=== PATIENT | female | born 1935 | race Caucasian/White ===

== ENCOUNTER 2016-03-16 15:24 | Outpatient (CLI) | payer MEDICARE, OTHER | END 2016-03-16 15:25 | disposition home or self-care (01) | DX: R20.0 Anesthesia of skin (principal); R09.89 Other specified symptoms and signs involving the circulatory and respiratory systems; M19.072 Primary osteoarthritis, left ankle and foot; M19.071 Primary osteoarthritis, right ankle and foot; M79.672 Pain in left foot; M79.671 Pain in right foot ==

== ENCOUNTER 2016-03-16 16:52 | Outpatient (CLI) | payer MEDICARE, OTHER | END 2016-03-16 16:53 | disposition home or self-care (01) | DX: M19.072 Primary osteoarthritis, left ankle and foot (principal); M19.071 Primary osteoarthritis, right ankle and foot; R20.0 Anesthesia of skin; M79.672 Pain in left foot; M79.671 Pain in right foot ==

== ENCOUNTER 2016-07-23 12:29 | Outpatient (CLI) | payer MEDICARE, OTHER ==
--- NOTE | 2016-07-23 14:06 | XRAY Report ---
THREE-VIEW LUMBAR SPINE: 07/23/2016 CLINICAL INDICATION: History of fall, right-sided pain. FINDINGS: AP, lateral, coned-down views of the lumbar spine demonstrate degenerative disk and facet disease. There is grade 0 anterolisthesis of L5 on S1. Minimal levoscoliosis is present. IMPRESSION: DEGENERATIVE CHANGES, WITH MINIMAL LEVOSCOLIOSIS. NO COMPRESSION FRACTURE. JOB #: [id number] EXT JOB #:[id number]
== END 2016-07-23 12:30 | disposition home or self-care (01) ==
LOC: DI 12:29
PROVIDERS: ATTEND Nurse Practitioner Family
DX: M51.36 Other intervertebral disc degeneration, lumbar region (principal); M47.896 Other spondylosis, lumbar region
CPT/HCPCS: 72100

== ENCOUNTER 2016-11-21 11:45 | Outpatient (CLI) | payer MEDICARE, OTHER ==
--- NOTE | 2016-11-21 14:12 | XRAY Report ---
TWO VIEW CHEST: 11/21/2016 CLINICAL INDICATION: Shortness of breath, right chest wall pain. FINDINGS: Frontal and lateral views of the chest are compared to previous CT of 04/06/2015 and plain film of 04/06/2015. The cardiac silhouette is mildly enlarged. A hiatal hernia is stable. No focal infiltrate, effusion, or pneumothorax is seen. IMPRESSION: STABLE MILD CARDIOMEGALY AND HIATAL HERNIA. NO EVIDENCE OF ACUTE CARDIOPULMONARY DISEASE . JOB #: [id number] EXT JOB #:[id number]
--- NOTE | 2016-11-21 14:14 | XRAY Report ---
TWO VIEW RIGHT RIBS: 11/21/2016 CLINICAL INDICATION: Right chest wall pain. FINDINGS: Bilateral oblique views of the right ribs were obtained, with a marker at the site of maxi mal tenderness. There is no evidence of a displaced rib fracture. No pneumothorax is seen. IMPRESSION: NO EVIDENCE OF A DISPLACED RIGHT RIB FRACTURE. JOB #: [id number] EXT JOB #:[id number]
== END 2016-11-21 11:46 | disposition home or self-care (01) ==
LOC: DI 11:45
PROVIDERS: ATTEND Physician Assistant
DX: R06.02 Shortness of breath (principal); I51.7 Cardiomegaly; K44.9 Diaphragmatic hernia without obstruction or gangrene
CPT/HCPCS: 71020

== ENCOUNTER 2016-11-26 16:26 | Outpatient (CLI) | payer MEDICARE, OTHER ==
[2016-11-26] MEDS ORDERED: IOPAMIDOL-300 50 ML VIAL ONE (16:38)
[2016-11-26] MEDS ORDERED: IOPAMIDOL-300 100 ML VIAL ONE (16:38)
[2016-11-26] MEDS ORDERED: IOPAMIDOL-300 100 ML VIAL IVP ONE (18:06)
[2016-11-26] MEDS ORDERED: IOPAMIDOL-300 50 ML VIAL PO ONE (18:06)
--- NOTE | 2016-11-27 10:57 | CT Report ---
CT ABDOMEN AND PELVIS WITH CONTRAST: 11/26/2016 CLINICAL INDICATION: Anemia. COMPARISON: 04/06/2015, 01/07/2015. TECHNIQUE: Axial CT images of the abdomen and pelvis were obtained with 100 mL Isovue-300 intravenou sly as well as oral contrast. FINDINGS: Hiatal hernia appears stable. There is a new nodular opacity in the left lower lobe, bridget uring 7 mm. ABDOMEN: Focal fatty infiltration in the right lobe of the liver is stable. No new hepatic lesion o r intrahepatic biliary dilatation is present. The patient is status post cholecystectomy. The splee n, pancreas, right kidney and adrenal glands are unremarkable. Left renal atrophy is stable. No bow el dilatation, free gas, or free fluid is present. No abdominal adenopathy is appreciated. PELVIS: Sigmoid diverticulosis is present, without CT evidence of diverticulitis. Urinary bladder d iverticulum is present. There is a small right inguinal hernia, containing fat, without bowel hernia tion. No pelvic adenopathy or free fluid is present. Osseous structures demonstrate degenerative changes. IMPRESSION: 1. STABLE HIATAL HERNIA. 2. NEW LEFT LOWER LOBE LUNG NODULE. CONSIDER CHEST CT FOR FURTHER EVALUATION. 3. DIVERTICULOSIS, WITHOUT CT EVIDENCE OF DIVERTICULITIS. CORRELATION WITH COLONOSCOPY IS RECOMMEND ED TO EXCLUDE A COLONIC MASS A SOURCE OF ANEMIA. In accordance with CT protocol optimization, one or more of the following dose reduction techniques w ere utilized for this exam: automated exposure control, adjustment of mA and/or KV based on patient size, or use of iterative reconstructive technique. JOB #: [id number] EXT JOB #:[id number]
--- NOTE | 2016-11-28 16:22 | Mammography Report ---
DIGITAL SCREENING MAMMOGRAM: 11/26/2016 CLINICAL INDICATION: An 81-year-old with family history of breast cancer, history of benign biopsy, f or screening. COMPARISON: 05/2014, 03/2013, 02/2011, 01/2010. TECHNIQUE: Routine CC and MLO projections were obtained of the breasts. FINDINGS: The breasts demonstrate scattered fibroglandular densities bilaterally. Postoperative jay ges in the left breast are stable. Coarse and punctate, typically benign calcifications are present. No suspicious masses, clustered microcalcifications, or regions of architectural distortion are ident ified. IMPRESSION: BENIGN FINDINGS. RECOMMENDATION: ROUTINE ANNUAL SCREENING UNLESS OTHERWISE CLINICALLY INDICATED. BIRADS CATEGORY 2-BENIGN FINDINGS. STANDARD QUALIFYING STATEMENTS 1. This examination was reviewed with the aid of Computer-Aided Detection (CAD). 2. A negative or benign imaging report should not delay biopsy if clinically suspicious findings are present. Consider surgical consultation if warranted. More than 5% of cancers are not identified by i maging. 3. Dense breasts may obscure an underlying neoplasm. JOB #: [id number] EXT JOB #:[id number]
== END 2016-11-26 16:27 | disposition home or self-care (01) ==
LOC: DI 16:26
PROVIDERS: ATTEND Physician Assistant
DX: K44.9 Diaphragmatic hernia without obstruction or gangrene (principal); R91.1 Solitary pulmonary nodule; K57.30 Diverticulosis of large intestine without perforation or abscess without bleeding; D64.9 Anemia, unspecified; Z12.31 Encounter for screening mammogram for malignant neoplasm of breast; Z80.3 Family history of malignant neoplasm of breast
CPT/HCPCS: 74177; G0202; Q9967; 77067

== ENCOUNTER 2016-12-14 10:14 | Outpatient (CLI) | payer MEDICARE, OTHER ==
[2016-12-14] MEDS ORDERED: SIMETHICONE/SOD BICARB/CIT AC 1 EACH PACKET PO ONE (12:25)
[2016-12-14] MEDS ORDERED: BARIUM SULFATE 148 GM POWDER PO ONE (12:25)
[2016-12-14] MEDS ORDERED: BARIUM SULFATE 135 ML BOTTLE PO ONE (12:25)
--- NOTE | 2016-12-14 13:17 | XRAY Report ---
UPPER GI SERIES: 12/14/2016 No comparison. INDICATION: Iron deficiency anemia. TECHNIQUE/FINDINGS: Effervescent crystals were employed. Thick and thin barium was administered ora lly and followed fluoroscopically through the esophagus and stomach. No aury mucosal abnormalities. No strictures. No abnormal mass effect. No diverticula are seen on the exam. There is a pnqpezge-zq-auhhl hiatal hernia without evidence of obstruction. No definite ulcers are identified. There is moderate presbyesophagus with tertiary contractions. No gastroesophageal reflux was seen du ring the exam. IMPRESSION: 1. MODERATE PRESBYESOPHAGUS. 2. [id number] HIATAL HERNIA. JOB #: [id number] EXT JOB #:[id number]
== END 2016-12-14 10:15 | disposition home or self-care (01) ==
LOC: DI 10:14
PROVIDERS: ATTEND Physician Assistant
DX: K22.8 Other specified diseases of esophagus (principal); K44.9 Diaphragmatic hernia without obstruction or gangrene
CPT/HCPCS: 74246; A9270

== ENCOUNTER 2017-01-25 10:27 | Outpatient (CLI) | payer MEDICARE, OTHER ==
[2017-01-25 11:04] LABS: CREATININE 0.8 mg/dL (0.4-1.0)
[2017-01-25] MEDS ORDERED: IOPAMIDOL-300 100 ML VIAL ONE (11:15)
[2017-01-25] MEDS ORDERED: IOPAMIDOL-300 100 ML VIAL IVP ONE (11:28)
--- NOTE | 2017-01-25 19:21 | CT Report ---
CHEST CT WITH INTRAVENOUS CONTRAST: 01/25/2017 COMPARISON EXAM: Abdomen CT 04/06/2015. INDICATION: Disorder of the lungs. TECHNIQUE: Axial images of the chest was performed with intravenous contrast, 80 mL Isovue-300. In accordance with CT protocol optimization, one or more of the following dose reduction techniques were utilized for this exam: automated exposure control, adjustment of mA and/or KV based on patient size, or use of iterative reconstructive technique. FINDINGS: There is a 1.0 cm left lower lobe pulmonary nodule (solid). This finding is much more conspicuous on today's examination. There is no pneumothorax or pleural effusion. Previous trace pericardial fluid appears to have resolved. There is a multinodular thyroid. There is a 1.5 cm low attenuating focus in the right lobe of the liver. The finding is nonspecific, but appears stable. There is a moderate size hiatal hernia. The left kidney is somewhat atrophic compared to the right. No mediastinal or hilar adenopathy is demonstrated. No bone lesions. IMPRESSION: SOLID 1 CM LEFT LOWER LOBE PULMONARY NODULE. THIS APPEARS TO BE A NEW FINDING, OR IS AT LEAST MUCH MORE CONSPICUOUS ON TODAY'S EXAMINATION. RECOMMEND FOLLOWUP CHEST CT IN THREE MONTHS. MULTINODULAR THYROID MAY BE BETTER EVALUATED WITH ULTRASOUND. JOB #: [id number] EXT JOB #: [id number] CAT
== END 2017-01-25 10:28 | disposition home or self-care (01) ==
LOC: DI 10:27
PROVIDERS: ATTEND Physician Assistant
DX: R91.1 Solitary pulmonary nodule (principal); E04.2 Nontoxic multinodular goiter
CPT/HCPCS: 36415; 71260; 82565; Q9967

== ENCOUNTER 2017-01-25 10:53 | Outpatient (CLI) | payer MEDICARE, OTHER | END 2017-01-25 10:54 | disposition home or self-care (01) | LOC: LAB 10:53 | PROVIDERS: ATTEND Physician Assistant | DX: Z53.9 Procedure and treatment not carried out, unspecified reason (principal) ==

== ENCOUNTER 2017-04-09 20:39 | Outpatient (CLI) | payer MEDICARE, OTHER ==
--- NOTE | 2017-04-10 02:54 | Ultrasound Preliminary Report ---
Exam: US DUPLEX EXT VEINS BILATERAL IMPRESSION: 1. Palpable soft tissue mass in the lateral right ankle core sponsor at 3.2 x 0.9 cm and avascular ma ss with echotexture isoechoic to adjacent subcutaneous fat. This most likely represents a lipoma. The mass continues to increase in size or becomes painful, recommend contrast-enhanced MRI for character ization. 2. 2.8 x 0.6 x 2.1 cm left popliteal fossa cyst. 3. No evidence for deep venous thrombosis bilaterally. [facility] SITE ID: [id number]
--- NOTE | 2017-04-10 04:45 | Ultrasound Report ---
EXAM: BILATERAL LOWER EXTREMITY VENOUS ULTRASOUND EXAM DATE: 04/09/2017 09:45 PM. CLINICAL HISTORY: Bilateral superficial phlebitis. COMPARISON: 03/16/2016. TECHNIQUE: Real-time sonographic vascular imaging was performed by the liquefied natural gas operator through the lower extremities utilizing both color-flow and Doppler spectral analysis. Multiple sales representative gas service static i mages were saved for review. FINDINGS: Right: Common Femoral Vein (CFV): Normal. CFV-GSV Junction: Normal. Profunda Femoral Vein (PFV): Normal. Femoral Vein (FV) Prox: Normal. Femoral Vein (FV) Mid: Normal. Femoral Vein (FV) Dist: Normal. Popliteal Vein: Normal. Posterior Tibial Veins: Normal. Peroneal Veins: Normal. Left: Common Femoral Vein (CFV): Normal. CFV-GSV Junction: Normal. Profunda Femoral Vein (PFV): Normal. Femoral Vein (FV) Prox: Normal. Femoral Vein (FV) Mid: Normal. Femoral Vein (FV) Dist: Normal. Popliteal Vein: Normal. Posterior Tibial Veins: Normal. Peroneal Veins: Normal. Other: At the lateral right ankle, the palpable lump corresponds with an avascular 3.2 x 0.9 cm soft tissue subcutaneous mass with echotexture isoechoic to the adjacent subcutaneous fat. In the posterior medial left knee, there is an anechoic fluid collection measuring 2.8 x 0.6 x 2.1 cm . No significant debris or vascular components. IMPRESSION: 1. Palpable soft tissue mass in the lateral right ankle corresponds with 3.2 x 0.9 cm avascular mass with echotexture isoechoic to adjacent subcutaneous fat. This most likely represents a lipoma. If the mass continues to increase in size or becomes painful, recommend contrast-enhanced MRI for character ization. 2. 2.8 x 0.6 x 2.1 cm left popliteal fossa cyst. 3. No evidence for deep venous thrombosis bilaterally. [facility] Referring Provider Line: [phone] SITE ID: [id number]
== END 2017-04-09 20:40 | disposition home or self-care (01) ==
LOC: DI 20:39
PROVIDERS: ATTEND Internal Medicine
DX: R22.41 Localized swelling, mass and lump, right lower limb (principal); M71.22 Synovial cyst of popliteal space [Baker], left knee
CPT/HCPCS: 93970

== ENCOUNTER 2017-04-19 10:46 | Outpatient (CLI) | payer MEDICARE, OTHER ==
--- NOTE | 2017-04-19 12:05 | XRAY Report ---
THREE VIEW RIGHT ANKLE: 04/19/2017 CLINICAL INDICATION: Pain, trauma. FINDINGS: AP, lateral, and oblique views of the right ankle demonstrate minimal periosteal reaction along the lateral distal fibula, likely representing a healing fracture, best seen on the oblique projection. Plantar calcaneal spurring is present. No joint effusion is seen. IMPRESSION: MINIMAL PERIOSTEAL REACTION ALONG THE DISTAL FIBULAR SHAFT, BEST SEEN ON THE OBLIQUE PROJECTION, LIKELY REPRESENTING A HEALING NONDISPLACED FRACTURE. TD: 04/19/2017 12:04
== END 2017-04-19 10:47 | disposition home or self-care (01) ==
LOC: DI 10:46
PROVIDERS: ATTEND Physician Assistant
DX: M25.571 Pain in right ankle and joints of right foot (principal)

== ENCOUNTER 2017-05-30 10:37 | Outpatient (CLI) | payer MEDICARE, OTHER ==
[2017-05-30 11:16] LABS: CREATININE 0.8 mg/dL (0.4-1.0)
[2017-05-30] MEDS ORDERED: IOPAMIDOL-300 100 ML VIAL ONE (11:34)
[2017-05-30] MEDS ORDERED: IOPAMIDOL-300 100 ML VIAL IVP ONE (11:53)
--- NOTE | 2017-05-30 13:24 | CT Report ---
CT CHEST WITH CONTRAST: 05/30/2017 CLINICAL INDICATION: Followup pulmonary nodule. TECHNIQUE: Axial CT images of the chest were obtained with 100 mL Isovue 300 intravenously. COMPARISON: 01/25/2017. FINDINGS: The heart and great vessels demonstrate atherosclerotic calcification. No hilar or mediastinal lymphadenopathy is present. Moderate hiatal hernia is again noted. The pulmonary nodule in the left lower lobe persists, measuring 10 mm. Further evaluation with PET scan or biopsy is recommended. The margins are mildly spiculated. No other pulmonary nodule or mass lesion is identified. No effusion or pneumothorax is present. Osseous structures demonstrate degenerative changes and thoracic scoliosis. Limited evaluation of upper abdominal structures demonstrates normal adrenal glands. Left renal atrophy is present. The hypodensity in the right lobe of the liver is stable. IMPRESSION: PERSISTENT 10 MM NODULE IN THE POSTERIOR LEFT LOWER LOBE. FURTHER EVALUATION WITH PET SCAN OR BIOPSY IS RECOMMENDED. CT DOSE REDUCTION STATEMENT In accordance with CT protocol optimization, one or more of the following dose reduction techniques were utilized for this exam: automated exposure control, adjustment of mA and/or KV based on patient size, or use of iterative reconstructive technique. TD: 05/30/2017 13:23
== END 2017-05-30 10:38 | disposition home or self-care (01) ==
LOC: LAB 10:37 → DI 10:38
PROVIDERS: ATTEND Physician Assistant
DX: R91.1 Solitary pulmonary nodule (principal)
CPT/HCPCS: 36415; 71260; 82565; Q9967

== ENCOUNTER 2018-04-24 12:26 | Outpatient (CLI) | payer MEDICARE, OTHER ==
[2018-04-24 13:33] LABS: THYROID STIMULATING HORMONE 6.43 uIU/mL (0.34-5.60)
[2018-04-24 13:35] LABS: FREE T4 (FREE THYROXINE) 0.78 ng/dL (0.58-1.64)
[2018-04-24 13:40] LABS: TOTAL T3 0.91 ng/mL (0.87-1.78)
== END 2018-04-24 12:27 | disposition home or self-care (01) ==
LOC: LAB 12:26
PROVIDERS: ATTEND Physician Assistant
DX: E03.9 Hypothyroidism, unspecified (principal); N18.9 Chronic kidney disease, unspecified
CPT/HCPCS: 36415; 82565; 84439; 84443; 84480

== ENCOUNTER 2018-04-28 11:33 | Outpatient (CLI) | payer MEDICARE, OTHER ==
[2018-04-28] MEDS ORDERED: IOPAMIDOL-300 100 ML VIAL ONE (12:41)
[2018-04-28] MEDS ORDERED: IOPAMIDOL-300 100 ML VIAL IVP ONE (12:58)
--- NOTE | 2018-04-28 15:30 | CT Report ---
Reason: SOLITARY PULMONARY NODULE Procedure Date: 04/28/2018 Accession Number: [id number] / [id number] Procedure: CT - CHEST W CPT Code: FULL RESULT: EXAM: CT CHEST EXAM DATE: 04/28/2018 12:49 PM. CLINICAL HISTORY: Solitary pulmonary nodule. COMPARISONS: CHEST W/ 05/30/2017 11:41 AM. CHEST W/ 01/25/2017 11:22 AM. ABDOMEN/PELVIS W/WO 01/26/2014 4:08 PM. TECHNIQUE: Routine helical CT imaging was performed through the chest. IV contrast: Yes. Reconstructions: Coronal and sagittal. In accordance with CT protocol optimization, one or more of the following dose reduction techniques were utilized for this exam: automated exposure control, adjustment of mA and/or KV based on patient size, or use of iterative reconstructive technique. FINDINGS: Lungs/Pleura: There is a 10 x 11 x 13 mm pulmonary nodule in the left lower lobe, reference axial image 45, which has shown progressive increase in volume under surveillance. Mass has a spiculated margin and is suspicious for primary neoplasm. No additional pulmonary nodules. No effusion or extra ventilatory air. Mediastinum: Stable moderate to large hiatal hernia. Stable appearance of multinodular goiter. No mediastinal adenopathy or masses. The heart and great vessels are normal for age. Bones: Stable S-shaped upper thoracic scoliosis. Visualized Abdomen: Stable left renal atrophy noted. Stable 2.5 cm hypodensity of the anterior dome of liver, segment 8. Other: None. IMPRESSION: 1. Progressive increase in size/volume of a spiculated 13 mm nodule in the left lower lobe, suspicious for primary neoplasia. Appropriate action is recommended. Biopsy should be considered if patient is a candidate for surgery and/or further treatment. [facility]
== END 2018-04-28 11:34 | disposition home or self-care (01) ==
LOC: DI 11:33
PROVIDERS: ATTEND Physician Assistant
DX: R91.1 Solitary pulmonary nodule (principal)
CPT/HCPCS: 71260; Q9967

== ENCOUNTER 2018-05-29 16:10 | Outpatient (CLI) | payer MEDICARE, OTHER ==
--- NOTE | 2018-06-03 10:40 | Mammography Report ---
Reason: ANNUAL SCREENING Procedure Date: 05/29/2018 Accession Number: [id number] / [id number] Procedure: KHUSHI - Screening Mammo Dig Bilat CPT Code: FULL RESULT: EXAM: Screening Mammo Dig Bilat DATE: 05/29/2018 4:52 PM CLINICAL HISTORY: Screening examination. TECHNIQUE: (B) - Bilateral CC and MLO views were obtained. COMPARISON: 11/26/2016, 05/20/2014 PARENCHYMAL PATTERN: (A) - The breasts demonstrate scattered fibroglandular densities bilaterally. FINDINGS: There are no suspicious masses, calcifications, or areas of distortion. IMPRESSION: Negative examination. BI-RADS category 1. RECOMMENDATION: (ANNUAL) - Recommend routine annual screening mammography. BI-RADS CATEGORY: (1) - Negative. STANDARD QUALIFYING STATEMENTS: 1. This examination was not reviewed with the aid of Computer-Aided Detection (CAD). 2. A negative or benign imaging report should not preclude biopsy if clinically suspicious findings are present. 3. Dense breasts may obscure an underlying neoplasm. 4. This examination was reviewed without the aid of 3D breast imaging (tomosynthesis).
== END 2018-05-29 16:11 | disposition home or self-care (01) ==
LOC: DI 16:10
PROVIDERS: ATTEND Physician Assistant
DX: Z12.31 Encounter for screening mammogram for malignant neoplasm of breast (principal)
CPT/HCPCS: 77067

== ENCOUNTER 2018-06-28 15:55 | Outpatient (CLI) | payer MEDICARE, OTHER ==
--- NOTE | 2018-06-30 00:03 | Ultrasound Report ---
Reason: NONTOXIC MULTINODULAR GOITER Procedure Date: 06/28/2018 Accession Number: [id number] / [id number] Procedure: US - Head or Neck Soft Tissue CPT Code: FULL RESULT: EXAM: THYROID ULTRASOUND EXAM DATE: 06/28/2018 04:33 PM. CLINICAL HISTORY: Nontoxic multinodular goiter. Recent diagnosis of lung cancer. COMPARISON: CHEST W/ 04/28/2018 12:49 PM. TECHNIQUE: Real time sonographic imaging of the thyroid was performed by the store administrator. Multiple residential sales representative static images were saved for review. FINDINGS: THYROID GLAND: Right Lobe: 3.7 x 2.1 x 2.7 cm, volume 10.6 cc. Diffusely heterogeneous, mildly hyperemic parenchyma. Right Lobe Nodules: Multiple nodules, including the following 3 largest: 1. Predominantly isoechoic solid mixed cystic/solid, medial midportion, 1.6 x 0.9 x 1.3 cm. CHAVEZ low suspicion sonographic pattern. 2. Predominantly solid isoechoic, midportion, 1.2 x 1.1 x 1.2 cm. CHAVEZ low suspicion sonographic pattern. 3. Hypoechoic solid, lateral inferior pole, 0.8 x 0.5 x 0.6 cm. CHAVEZ intermediate suspicion sonographic pattern. Left Lobe: 4.6 x 2.5 x 2.5 cm, volume 15.1 cc. Diffusely heterogeneous, mildly hyperemic parenchyma. Left Lobe Nodules: Multiple nodules, including the following 3 largest: 1. Isoechoic solid, midportion, 2.0 x 2.0 x 2.0 cm. CHAVEZ low suspicion sonographic pattern. 2. Predominately cystic with small eccentric solid component, inferior pole, 2.0 x 1.5 x 1.7 cm. CHAVEZ low suspicion sonographic pattern. 3. Predominantly solid isoechoic with small eccentric cystic area, medial inferior pole, 2.1 x 1.6 x 1.8 cm. CHAVEZ low suspicion sonographic pattern. Isthmus: 0.6 cm AP. Isthmic Nodules: None. LYMPH NODES: No adenopathy demonstrated in the central or lateral compartment. OTHER: None. IMPRESSION: Multinodular thyroid goiter, as detailed above. Multiple nodules meet criteria for tissue sampling with FNA (right #1 and left #1-3), consider sampling only the largest solid/predominantly solid left nodules (#1 and 3) or following with ultrasound given patient age and comorbidities. Management recommendations are based on 2015 [place] [employer] Management Guidelines for Adult Patients with Thyroid Nodules and Differentiated Thyroid Cancer. [facility]
== END 2018-06-28 15:56 | disposition home or self-care (01) ==
LOC: DI 15:55
PROVIDERS: ATTEND Physician Assistant
DX: E04.2 Nontoxic multinodular goiter (principal)
CPT/HCPCS: 76536

== ENCOUNTER 2018-08-04 15:55 | Outpatient (CLI) | payer MEDICARE, OTHER | END 2018-08-04 15:56 | disposition critical access hospital (66) | LOC: EMS 15:55 | PROVIDERS: ATTEND Surgery | DX: R52 Pain, unspecified (principal); R50.9 Fever, unspecified | CPT/HCPCS: A0425; A0429 ==

== ENCOUNTER 2018-08-04 16:28 | Emergency (ER) | payer MEDICARE, OTHER ==
--- NOTE | 2018-08-04 16:56 | ED Physician Documentation ---
History of Present Illness - Stated complaint Stated Complaint: BODY ACHES - Chief complaint Chief Complaint: General - History obtained from History obtained from: Patient - History of Present Illness Timing: Prior to arrival - Additonal information Additional information: Patient is an 83-year-old female presenting with now resolved low back and bilateral leg pain that began just prior to arrival while she was gardening. Patient denies fall, trauma, or other inciting incident. Patient also denies any recent symptoms such as fever, chest pain, difficulty breathing, abdominal pain, Urinary changes, stool changes or other complaints. Patient reports that she took 4 ibuprofen at home but all symptoms have resolved. Currently, she is asymptomatic and without complaints. No other worsening or improving factors noted. Review of Systems Musculoskeletal: reports: Back pain, Extremity pain PD PAST MEDICAL HISTORY - Past Medical History Past Medical History: Yes Cardiovascular: None Respiratory: Sleep apnea, Other (Lung cancer) Neuro: None Endocrine/Autoimmune: HyPOthyroidism GI: GERD, Diverticulitis, Other : Other HEENT: None Psych: Depression Musculoskeletal: None, Osteoarthritis Derm: None - Past Surgical History Past Surgical History: No General: Cholecystectomy, Colonoscopy /SKIN CARE SPECIALIST: Hysterectomy HEENT: Tonsil/Adenoidectomy - Present Medications Home Medications: Ambulatory Orders Medication Instructions Recorded Confirmed Cyanocobalamin (Vitamin B-12) 1 ea SL DAILY 10/07/17 08/04/18 [Vitamin B-12 (1000 mcg sublingual)] Levothyroxine Sodium 1 tab ORAL DAILY 10/07/17 08/04/18 Omeprazole [PriLOSEC] 1 tab ORAL DAILY 10/07/17 08/04/18 Paroxetine HCl [Paxil] 1 tab ORAL DAILY 10/07/17 08/04/18 - Allergies Allergies/Adverse Reactions: Allergies Allergy/AdvReac Type Severity Reaction Status Date / Time prochlorperazine edisylate * Allergy Hives Unverified 08/04/18 16:35 [From Compazine] prochlorperazine maleate * Allergy Hives Unverified 08/04/18 16:35 [From Compazine] Sulfa (Sulfonamide Allergy not known Unverified 08/04/18 16:35 Antibiotics) sulfamethoxazole Allergy not known Unverified 08/04/18 16:35 [From Septra] trimethoprim [From Septra] Allergy not known Unverified 08/04/18 16:35 - Social History Does the pt smoke?: No Smoking Status: Never smoker Does the pt drink ETOH?: Yes Does the pt have substance abuse?: Yes Substance Use and Type: Marijuana - Immunizations Immunizations are current?: Yes - POLST Patient has POLST: No PD ED PE NORMAL - Vitals Vital signs reviewed: Yes - General General: Alert and oriented X 3, No acute distress, Well developed/nourished - HEENT HEENT: Atraumatic, Moist mucous membranes - Neck Neck: No bony TTP - Cardiac Cardiac: RRR, No murmur - Respiratory Respiratory: No respiratory distress, Clear bilaterally - Abdomen Abdomen: Soft, Non tender, Non distended - Back Back: No spinal TTP - Derm Derm: Normal color, Warm and dry, No rash - Extremities Extremities: No deformity, No tenderness to palpate - Neuro Neuro: Alert and oriented X 3, No motor deficit, No sensory deficit - Psych Psych: Normal mood, Normal affect Results - Vitals Vitals: Vital Signs - 24 hr 08/04/18 16:30 Temperature 37.6 C H Heart Rate 90 Respiratory 18 Rate Blood Pressure 101/66 O2 Saturation 93 Oxygen O2 Source Room air PD MEDICAL DECISION MAKING - ED course Complexity details: considered differential, d/w patient, d/w family ED course: Patient presenting with resolved back pain and leg pain that she experienced while gardening earlier today. Patient denied trauma. No trauma found on exam. Additionally, patient denies other complaints prior to or following pain that was resolved with ibuprofen. Do not have high suspicion for vertebral or spinal cord pathology. Also have low suspicion for cardiac or pulmonary etiologies. Patient denies any abdominal complaints and do not have high suspicion for intra-abdominal issues or UTI at this time. [facility]. Discussed supportive cares, return precautions, and follow-up. Otherwise, feel that she is safe to discharge home. Departure - Departure Disposition: 01 Home, Self Care Clinical Impression: Generalized muscle ache Instructions: ED Acute Pain [facility] Follow-Up: Ada Awad PA [Primary Care Provider] - Within 3 Days Comments: Recommend ibuprofen/Tylenol as needed for muscle pains. Recommend hydration, healthy diet, and follow-up with primary care physician in next 2 to 3 days. Please return to ED sooner if you experience injury, return of symptoms, or other concerns.
[2018-08-04 17:22] VITALS: BP 95/52
== END 2018-08-04 17:28 | disposition home or self-care (01) ==
LOC: EDUNIT# → ED 16:28
DX: M79.18 Myalgia, other site (principal); M54.5 Low back pain; Z85.118 Personal history of other malignant neoplasm of bronchus and lung
CPT/HCPCS: 99282; 99283

== ENCOUNTER 2018-11-13 10:25 | Outpatient (CLI) | payer MEDICARE, OTHER ==
--- NOTE | 2018-11-14 15:03 | XRAY Report ---
Reason: CHRONIC LOW BACK PAIN Procedure Date: 11/13/2018 Accession Number: [id number] / [id number] Procedure: XR - Lumbar Spine 2 View CPT Code: FULL RESULT: EXAM: LUMBOSACRAL SPINE RADIOGRAPHY, 2 VIEWS EXAM DATE: 11/13/2018 10:42 AM. CLINICAL HISTORY: Chronic low back pain in an 83-year-old female. COMPARISONS: LUMBAR SPINE 2 VIEW 07/23/2016 12:31 PM. ABDOMEN/PELVIS W/ 11/26/2016 5:54 PM. TECHNIQUE: Frontal and lateral views. FINDINGS: Alignment: Mild levoconvex curve centered at L3, slightly greater than previous. Grade 1 anterolisthesis of L5 on S1, 9.5 mm currently, increased from 4-6 mm on earlier studies. Bones: Five ezo-iio-djpskum lumbar vertebral bodies are present. No fractures or bone lesions. Disks: Moderate to severe disk space narrowing at L2-L3, similar to prior studies with mild disk space narrowing at L3-L4, also similar to prior exams. Remaining disk spaces well maintained. Facets: Mild degenerative facet disease mid to lower lumbar spine, stable. Sacroiliac Joints: Mild bilateral sacroiliitis, mildly progressive from prior studies. Soft Tissues: Surgical clips in the right lower abdomen medially, as previous. Otherwise unremarkable. The visualized bowel gas pattern is normal. IMPRESSION: Slight levoconvex curve centered at L3, mildly progressive from prior studies. Grade 1 degenerative anterolisthesis of L4 on L5, increased from prior exams. Moderate to severe disk space narrowing at L2-L3 with mild disk space narrowing at L3-L4, stable. Mild sacroiliitis bilaterally, increased from prior studies. If the patient has radicular symptoms, noncontrast MRI of the lumbar spine would be useful to assess for disk protrusion and/or stenosis as the etiology of the patient's symptoms. [facility]
== END 2018-11-13 10:26 | disposition home or self-care (01) ==
LOC: DI 10:25
PROVIDERS: ATTEND Physician Assistant
DX: M51.36 Other intervertebral disc degeneration, lumbar region (principal); M47.816 Spondylosis without myelopathy or radiculopathy, lumbar region; M43.16 Spondylolisthesis, lumbar region; M41.9 Scoliosis, unspecified; M46.1 Sacroiliitis, not elsewhere classified
CPT/HCPCS: 72100

== ENCOUNTER 2018-12-04 07:07 | Day surgery (SDC) | payer MEDICARE, OTHER ==
[~2018-12-04 07:07] MED LIST: CYCLOPENTOLATE 1% OPHTH DROPS 2 ML ONE; KETOROLAC 0.45% OPHTH DROPS ONE; PHENYLEPHRINE 2.5% OPHTH 2 ML DROPS ONE; PROPARACAINE 0.5% OPHTH DROPS 15 ML ONE
[2018-12-04] MEDS ORDERED: MIDAZOLAM 2 MG/2 ML VIAL IVP ONE (07:08)
[2018-12-04] MEDS ORDERED: LACTATED RINGERS 1,000 ML IV ONE (07:14)
[2018-12-04] MEDS ORDERED: PHENYLEPHRINE 2.5% OPHTH 2 ML DROPS LEFTEYE ONE (07:25)
[2018-12-04] MEDS ORDERED: CYCLOPENTOLATE 1% OPHTH DROPS 2 ML LEFTEYE ONE (07:25)
[2018-12-04] MEDS ORDERED: PROPARACAINE 0.5% OPHTH DROPS 15 ML LEFTEYE ONE ×2 (07:25→08:27)
[2018-12-04] MEDS ORDERED: KETOROLAC 0.45% OPHTH DROPS LEFTEYE ONE (07:25)
--- NOTE | 2018-12-04 07:56 | ANESTHESIA ---
Pre-Anesthesia VS, & Labs - Diagnosis left senile combined cataract - Procedure left cataract extraction with intraocular lens Vital Signs: Temp Pulse Resp BP Pulse Ox 36 C L 80 16 124/76 95 12/04/18 07:14 12/04/18 07:14 12/04/18 07:14 12/04/18 07:14 12/04/18 07:14 Height 5 ft 5 in Weight (kg) 59.8 kg Body Mass Index 21.3 - NPO >8 hours - Is Patient ?: No Home Medications and Allergies Cyanocobalamin (Vitamin B-12) [Vitamin B-12 (1000 mcg sublingual)] 1 ea SL DAILY 10/07/17 Levothyroxine Sodium 1 tab ORAL DAILY 10/07/17 Omeprazole [PriLOSEC] 1 tab ORAL DAILY 10/07/17 Paroxetine HCl [Paxil] 1 tab ORAL DAILY 10/07/17 Allergies/Adverse Reactions: Allergies Allergy/AdvReac Type Severity Reaction Status Date / Time prochlorperazine edisylate * Allergy Hives Verified 09/08/18 14:02 [From Compazine] prochlorperazine maleate * Allergy Hives Verified 09/08/18 14:02 [From Compazine] Sulfa (Sulfonamide Allergy not known Verified 09/08/18 14:02 Antibiotics) sulfamethoxazole Allergy not known Verified 09/08/18 14:02 [From Septra] trimethoprim [From Septra] Allergy not known Verified 09/08/18 14:02 Anes History & Medical History - Anesthetic History Anesthesia Complications: reports: Difficult airway - Medical History Cardiovascular: reports: None Pulmonary: reports: Sleep apnea, Other Gastrointestinal: reports: GERD, Diverticulitis, Other Urinary: reports: Other Neuro: reports: None Musculoskeletal: reports: None, Osteoarthritis Endocrine/Autoimmune: reports: HyPOthyroidism Blood Disorders: reports: Anemia Skin: reports: None Smoking Status: Never smoker - Surgical History General: Cholecystectomy, Colonoscopy Eyes Ears Nose Throat (EENT): Tonsil/Adenoidectomy Gynecologic: Hysterectomy Exam General: Alert Dental: WNL Mouth Opening: Greater than 4 Fingerbreadths Mallampati classification: II Thyromental Distance: less than 4 cm Respiratory: Lungs clear Cardiovascular: Regular rate, Normal S1, Normal S2 Mental/Cognitive Status: Alert/Oriented X3 Plan Anesthesia Type: MAC Consent for Procedure(s) Verified and Reviewed: Yes Code Status: Attempt Resuscitation ASA classification: 2-Mild systemic disease Is this case an emergency?: No
[2018-12-04] MEDS ORDERED: TIMOLOL 0.5% OPHTH DROPS OPTH ONE (08:26)
[2018-12-04] MEDS ORDERED: EPINEPHrine 1 MG/ML AMP IVP ONE (08:26)
[2018-12-04] MEDS ORDERED: BRIMONIDINE 0.2% OPHTH DROPS 5 ML OPTH ONE (08:26)
[2018-12-04] MEDS ORDERED: BSS/LIDOCAINE/EPINEPHRINE 1 ML SYRINGE IO ONE (08:26)
[2018-12-04] MEDS ORDERED: CHONDR SULF/HYALURONATE SYRINGE IO ONE (08:26)
[2018-12-04] MEDS ORDERED: VANCOMYCIN OPHTHALMI 8MG/0.8ML 8 MG/0.8 ML SYRINGE IO ONE ×2 (08:27→10:15)
[2018-12-04] MEDS ORDERED: TRIAMCIN/MOXIFLOX OPHTHALMIC 0.6 ML VIAL IO ONE ×2 (08:27→10:15)
[2018-12-04 08:58] VITALS: BP 123/58
--- NOTE | 2018-12-04 09:23 | OPERATIVE REPORT ---
DATE OF SERVICE: 12/04/2018 Physician: Woody Tilley MD PREOPERATIVE DIAGNOSIS: Visually significant cataract, left eye. This was her first cataract surgery. POSTOPERATIVE DIAGNOSIS: Visually significant cataract, left eye. This was her first cataract surgery. DESCRIPTION OF PROCEDURE: Phacoemulsification with posterior chamber intraocular lens implant, left eye. SURGEON: Woody Tilley MD ANESTHESIA: Monitored anesthesia care. COMPLICATIONS: None. OPERATIVE INDICATIONS: This is an 83-year-old woman with progressive vision loss in the left eye due to 1 to 2+ nuclear sclerotic, 2 to 3+ cortical, and trace posterior subcapsular cataract. Best corrected visual acuity was 20/50 with glare to hand motion in the left eye. Indications for surgery were difficulty seeing words on a computer screen, difficulty seeing words, closed captions or game scores on TV, difficulty seeing street signs, difficulty driving in low light or at night, difficulty driving at night because of headlights from other vehicles, and difficulty with glare or bright lights in any situation. She was consented at length concerning risks and benefits of cataract surgery, after which she expressed a desire to proceed with surgery. OPERATIVE PROCEDURE: The patient was taken to OR #3 and placed under monitored anesthesia care. Surgical timeout was conducted confirming correct patient, correct procedure, and correct surgical site. She was given topical anesthesia, then prepped and draped in the usual sterile fashion. The eye was entered at the 6 and 3-o'clock positions. Intracameral Shugarcaine was injected into the anterior chamber, followed by Viscoat. A continuous-tear curvilinear capsulorrhexis was performed. The nucleus was hydrodissected and phacoemulsified. The cortex was evacuated using automated infusion and aspiration. Provisc was injected in the capsular bag and a 20.5-diopter intraocular lens inserted in the bag. Approximately 0.8 mL of a mixture of triamcinolone, moxifloxacin and vancomycin was injected subconjunctivally in the superior quadrant for infection and inflammation prophylaxis. I and A was used to evacuate the viscoelastic materials. The eye was inflated to physiologic pressure using balanced salt solution and found to be watertight. The patient was taken from the operating room in good condition and given postoperative instructions. TD: 12/04/2018 09:16 [facility]
[2018-12-04] MEDS ORDERED: BRIMONIDINE 0.2% OPHTH DROPS 5 ML ONE (10:15)
[2018-12-04] MEDS ORDERED: EPINEPHrine 1 MG/ML AMP ONE (10:15)
[2018-12-04] MEDS ORDERED: TIMOLOL 0.5% OPHTH DROPS ONE (10:15)
[2018-12-04] MEDS ORDERED: BSS/LIDOCAINE/EPINEPHRINE 1 ML SYRINGE ONE (10:15)
== END 2018-12-04 07:08 | disposition home or self-care (01) ==
LOC: SDS 07:07
PROVIDERS: ATTEND Ophthalmology
PROC: 08RK3JZ Replacement of Left Lens with Synthetic Substitute, Percutaneous Approach (ICD-10-PCS; principal; 2018-12-04 08:30)
DX: H25.812 Combined forms of age-related cataract, left eye (principal); E03.9 Hypothyroidism, unspecified; D64.9 Anemia, unspecified; G47.30 Sleep apnea, unspecified; K21.9 Gastro-esophageal reflux disease without esophagitis
CPT/HCPCS: 66984; A9270; J3490; J7120; V2632

== ENCOUNTER 2019-04-05 19:37 | Outpatient (CLI) | payer MEDICARE, OTHER | END 2019-04-05 19:38 | disposition home or self-care (01) | LOC: SC 19:37 | PROVIDERS: ATTEND Internal Medicine Pulmonary Disease | DX: G47.33 Obstructive sleep apnea (adult) (pediatric) (principal); G47.61 Periodic limb movement disorder | CPT/HCPCS: 95810 ==

== ENCOUNTER 2019-09-24 19:48 | Inpatient (IN) | payer MEDICARE, OTHER ==
--- NOTE | 2019-09-24 20:04 | ED Physician Documentation ---
PD HPI GI BLEED - Stated complaint Stated Complaint: N/V/D, BLOOD IN VOMIT - Chief complaint Chief Complaint: Abd Pain - History obtained from History obtained from: Patient - History of Present Illness Timing - onset: Yesterday (She has had nausea for the last couple of days and yesterday had an episode of emesis of maroon to bright red blood. It was just one episode and was perhaps half a cup full by her estimation. Continued nausea but no vomiting. She states she has had dark stool for 2 to 3 weeks) Timing - details: Abrupt onset (She states she just suddenly vomited some maroon to bright red blood yesterday without retching or dry heaving ahead. She has not had any subsequent vomiting.), Now resolved (but continued nausea with little PO intake today.) Associated symptoms: Vomiting (once yesterday), Hematemesis, Black/tarry stool (for couple of weeks), Constipation Contributing factors: No: Sick contact, Bad food, Alcohol use, Aspirin use, NSAID use, Anticoagulated Worsened by: Eating Similar symptoms before: Has not had sx before Recently seen: Clinic (Iron infusion for iron deficiency anemia Aug 05.) Review of Systems Constitutional: denies: Fever, Chills Nose: denies: Rhinorrhea / runny nose, Congestion Throat: denies: Sore throat GI: reports: Abdominal Pain (left lower abd cramping for past few days.), Na usea, Vomiting, Constipation, Hematemesis, Bloody / black stool. denies: Abdominal Swelling, Diarrhea : denies: Dysuria, Frequency Neurologic: reports: Generalized weakness, Near syncope (felt lightheaded today). denies: Focal weakness, Numbness PD PAST MEDICAL HISTORY - Past Medical History Cardiovascular: None Respiratory: Sleep apnea, Other Neuro: None Endocrine/Autoimmune: HyPOthyroidism GI: GERD, Ulcers (gastritis and small ulcers noted on EGD in 2016 (she had larygnospasm episode at end of procedure at that time). Had been on Omeprazole until 2 months ago when taken off it by Hematology due to it interfering with other med.), Diverticulitis, Other : Other HEENT: Chronic hearing loss Psych: Depression Musculoskeletal: None, Osteoarthritis Derm: None - Past Surgical History Past Surgical History: No General: Cholecystectomy, Colonoscopy /[employer]: Hysterectomy HEENT: Tonsil/Adenoidectomy - Present Medications Home Medications: Ambulatory Orders Medication Instructions Recorded Confirmed Cyanocobalamin (Vitamin B-12) 1 ea SL DAILY 10/07/17 07/28/19 [Vitamin B-12 (1000 mcg sublingual)] Levothyroxine Sodium 1 tab ORAL DAILY 10/07/17 07/28/19 Omeprazole [PriLOSEC] 1 tab ORAL DAILY 10/07/17 07/28/19 PARoxetine HCl [Paxil] 1 tab ORAL DAILY 10/07/17 07/28/19 - Allergies Allergies/Adverse Reactions: Allergies Allergy/AdvReac Type Severity Reaction Status Date / Time prochlorperazine edisylate * Allergy Hives Verified 07/28/19 09:26 [From Compazine] prochlorperazine maleate * Allergy Hives Verified 07/28/19 09:26 [From Compazine] Sulfa (Sulfonamide Allergy not known Verified 07/28/19 09:26 Antibiotics) sulfamethoxazole Allergy not known Verified 07/28/19 09:26 [From Septra] trimethoprim [From Septra] Allergy not known Verified 07/28/19 09:26 - Social History Does the pt smoke?: No Smoking Status: Never smoker Does the pt drink ETOH?: Yes Does the pt have substance abuse?: Yes - Immunizations Immunizations are current?: Yes - POLST Patient has POLST: No PD ED PE NORMAL - Vitals Vital signs reviewed: Yes (initial hypotension, improved with lying down and initial IV fluids. ) - General General: Alert and oriented X 3, No acute distress, Well developed/nourished - HEENT HEENT: Pharynx benign - Neck Neck: Supple, no meningeal sign, No adenopathy - Cardiac Cardiac: RRR, No murmur - Respiratory Respiratory: Clear bilaterally - Abdomen Abdomen: Normal bowel sounds, Soft, Non distended, No organomegaly, Other (Mild tenderness without any guarding or percussion tenderness in the left lower abdomen. The epigastric area is actually not tender) - Female Female : Deferred - Rectal Rectal: Deferred - Back Back: No CVA TTP - Derm Derm: Normal color, Warm and dry - Extremities Extremities: No tenderness to palpate, No edema, No calf tenderness / cord - Neuro Neuro: Alert and oriented X 3, No motor deficit, Normal speech Eye Opening: Spontaneous Motor: Obeys Commands Verbal: Oriented GCS Score: 15 Results - Vitals Vitals: Vital Signs - 24 hr 09/24/19 09/24/19 09/24/19 19:55 20:00 20:30 Temperature 36.5 C Heart Rate 97 82 81 Respiratory 16 26 H 22 Rate Blood Pressure 89/76 L 111/46 L 112/57 L O2 Saturation 97 99 99 09/24/19 09/24/19 09/24/19 21:11 21:30 22:00 Temperature Heart Rate 84 84 83 Respiratory 25 H 16 16 Rate Blood Pressure 114/74 130/59 L 109/56 L O2 Saturation 97 94 95 Oxygen O2 Source Room air - Labs Labs: Laboratory Tests 09/24/19 09/24/19 09/24/19 20:26 20:26 20:26 WBC 16.9 H RBC 2.71 L Hgb 7.6 L Hct 25.4 L MCV 93.7 MCH 28.0 MCHC 29.9 L RDW 16.1 H Plt Count 309 MPV 9.7 Neut # (Auto) 14.8 H Lymph # (Auto) 1.1 L [place] # (Auto) 0.6 Eos # (Auto) 0.1 Baso # (Auto) 0.1 Absolute Nucleated RBC 0.00 Nucleated RBC % 0.0 Sodium 139 Potassium 4.2 Chloride 104 Carbon Dioxide 25 Anion Gap 10.0 BUN 57 H Creatinine 0.9 Estimated GFR (MDRD) 60 L Glucose 165 H Calcium 8.0 L Magnesium Total Bilirubin 0.2 AST 16 ALT 14 Alkaline Phosphatase 43 Total Protein 5.8 L Albumin 2.8 L Globulin 3.0 Albumin/Globulin Ratio 0.9 L Lipase 37 Urine Color Urine Clarity Urine pH Ur Specific [place] Urine Protein Urine Glucose (UA) Urine Ketones Urine Occult Blood Urine Nitrite Urine Bilirubin Urine Urobilinogen Ur Leukocyte Esterase Urine RBC Urine WBC Ur Squamous Epith Cells Urine Bacteria Ur Microscopic Review Urine Culture Comments Blood Type Blood Type Recheck O POSITIVE Antibody Screen Crossmatch IS Only 09/24/19 09/24/19 09/24/19 20:40 20:40 21:25 WBC RBC Hgb Hct MCV MCH MCHC RDW Plt Count MPV Neut # (Auto) Lymph # (Auto) [place] # (Auto) Eos # (Auto) Baso # (Auto) Absolute Nucleated RBC Nucleated RBC % Sodium Potassium Chloride Carbon Dioxide Anion Gap BUN Creatinine Estimated GFR (MDRD) Glucose Calcium Magnesium 2.0 Total Bilirubin AST ALT Alkaline Phosphatase Total Protein Albumin Globulin Albumin/Globulin Ratio Lipase Urine Color YELLOW Urine Clarity CLEAR Urine pH 6.0 Ur Specific [place] 1.010 Urine Protein NEGATIVE Urine Glucose (UA) NEGATIVE Urine Ketones NEGATIVE Urine Occult Blood TRACE-INTA Urine Nitrite NEGATIVE Urine Bilirubin NEGATIVE Urine Urobilinogen 0.2 (NORMAL) Ur Leukocyte Esterase TRACE H Urine RBC 0-5 Urine WBC 4-5 Ur Squamous Epith Cells FEW Squamous Urine Bacteria Rare Ur Microscopic Review INDICATED Urine Culture Comments INDICATED Blood Type O POSITIVE Blood Type Recheck Antibody Screen NEGATIVE Crossmatch IS Only See Detail PD MEDICAL DECISION MAKING - ED course Complexity details: reviewed results (Given a considerable drop in hemoglobin compared to July along with vomiting of blood yesterday and lightheaded/hypotensive this evening, I am assuming some degree of ongoing blood loss acutely and likely subacutely. Will need serial hemoglobins to further assess and she is low enough blood count ), re-evaluated patient (She does have a much lower blood count now than in July. Hard to assess acute versus subacute blood loss. Obvious upper GI bleeding having vomited blood yesterday. She states dark stools for a couple of weeks so may have been some subacute loss as well), considered differential, d/w patient ED course: The patient and her daughter are concerned about potential endoscopy as she had a "severe reaction" on her last scope. I looked at the record of it from 2015 and the record reflects a laryngeal spasm episode. She was sedated for the procedure with midazolam and fentanyl and the episode improved with succinylcholine. 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 Defer to anesthesia opinion. Departure - Departure Disposition: ED Place in Observation Clinical Impression: Upper GI bleeding, Transient hypotension, Abdominal cramping in left lower quadrant Anemia Qualifiers: Anemia type: unspecified type Qualified Code(s): D64.9 - Anemia, unspecified Constipation Qualifiers: Constipation type: unspecified constipation type Qualified Code(s): K59.00 - Constipation, unspecified Condition: Stable Record reviewed to determine appropriate education?: Yes Discharge Date/Time: 09/24/19 23:14
[2019-09-24 20:26] LABS: BASOPHILS # (AUTO) 0.1 10^3/uL (0.0-0.1); BASOPHILS % (AUTO) 0.5 %; EOSINOPHILS # (AUTO) 0.1 10^3/uL (0.0-0.7); EOSINOPHILS % (AUTO) 0.4 %; HGB - HEMOGLOBIN 7.6 g/dL (12.0-16.0); LYMPHOCYTES # (AUTO) 1.1 10^3/uL (1.5-3.5); LYMPHOCYTES % (AUTO) 6.4 %; MEAN CORPUSCULAR HGB CONC 29.9 g/dL (32.0-36.0); MEAN CORPUSCULAR VOLUME 93.7 fL (81.0-99.0); MEAN PLATELET VOLUME 9.7 fL (7.9-10.8); MONOCYTES # (AUTO) 0.6 10^3/uL (0.0-1.0); MONOCYTES % (AUTO) 3.5 %; NEUTROPHILS # (AUTO) 14.8 10^3/uL (1.5-6.6); NEUTROPHILS % (AUTO) 87.8 %; PLT - PLATELET COUNT 309 10^3/uL (130-450); RED BLOOD COUNT 2.71 10^6/uL (4.20-5.40); RED CELL DISTRIBUTION WIDTH 16.1 % (12.0-15.0); WHITE BLOOD COUNT 16.9 x10^3/uL (4.8-10.8)
[2019-09-24] MEDS ORDERED: PANTOPRAZOLE 40 MG VIAL IVP STA (20:28)
[2019-09-24] MEDS ORDERED: SODIUM CHLORIDE 0.9% 1,000 ML IV STA (20:28)
[2019-09-24] MEDS ORDERED: IOVERSOL 320 100 ML VIAL IVP ONE ×2 (20:38→21:12)
[2019-09-24 20:41] LABS: ALBUMIN 2.8 g/dL (3.2-5.5); ALBUMIN/GLOBULIN RATIO 0.9 (1.0-2.2); BILIRUBIN,TOTAL 0.2 mg/dL (0.2-1.0); CREATININE 0.9 mg/dL (0.4-1.0); TOTAL PROTEIN 5.8 g/dL (6.7-8.2)
[2019-09-24] MEDS ORDERED: LACTATED RINGERS 1,000 ML IV STA (21:24)
--- NOTE | 2019-09-24 21:36 | CT Report ---
PROCEDURE: Abdomen/Pelvis W INDICATIONS: lower abd pain CONTRAST: IV CONTRAST: Optiray 320 ml: 100 PO CONTRAST: *NO PO CONTRAST TECHNIQUE: After the administration of oral and intravenous contrast, 5 mm thick sections acquired from the diap hragms to the symphysis. 5 mm thick coronal and sagittal reformats were acquired. For radiation dos e reduction, the following was used: automated exposure control, adjustment of mA and/or kV accordin g to patient size. COMPARISON: None. FINDINGS: Image quality: Excellent. ABDOMEN: Lung bases: Lung bases are clear. Heart size is enlarged Solid organs: Liver and spleen are normal in size and enhancement. 1.7 cm cyst noted in the right lo be of the liver. Diffuse fatty infiltration of the liver. Gallbladder is surgically absent Biliary s ystem is non dilated. Pancreas enhances normally. No adrenal nodules. Left kidney is atrophied Righ t kidney demonstrates normal size and enhancement, without hydronephrosis. Peritoneum and bowel: Moderate-sized hiatal hernia. Bowel loops demonstrate normal wall thickness an d caliber. Numerous diverticuli noted in the left colon and the sigmoid colon without evidence of div erticulitis. Large amount of stool noted in the sigmoid colon and moderate amount of stool in the rec mathew. No free fluid or air. Appendix is not definitely visualized, however no free fluid or inflammat ory changes noted adjacent to the cecum. Nodes and vessels: No retroperitoneal or mesenteric adenopathy by size criteria. Aorta and inferior vena cava are normal in size. Scattered atherosclerotic calcifications are noted in the abdominal an d pelvic vasculature. Miscellaneous: No ventral hernias. PELVIS: Genitourinary: Bladder wall thickness is normal. Small posterior left bladder diverticulum. Uterus i s absent. Miscellaneous: No inguinal adenopathy. Small right fat-containing inguinal hernia. Bones: No suspicious bony lesions. No vertebral body compression fractures. Spine degenerative disc disease and facet arthropathy are noted. IMPRESSION: 1. Moderate to large amount of stool in the sigmoid colon and moderate stool in the rectum. Please co rrelate with clinical data to exclude constipation. 2. Colonic diverticulosis without evidence of diverticulitis. 3. Left renal atrophy. 4. Urinary bladder diverticuli. 5. Status post cholecystectomy. 6. Moderate-sized hiatal hernia. 7. Cardiomegaly. Reviewed by: Marbella Sunshine MD, PhD on 09/24/2019 9:35 PM PDT Approved by: Marbella Sunshine MD, PhD on 09/24/2019 9:35 PM PDT Station ID: [id number]
[2019-09-24 21:40] LABS: BILIRUBIN,URINE NEGATIVE (NEGATIVE); CLARITY,URINE CLEAR (CLEAR); GLUCOSE, URINE (UA) NEGATIVE (NEGATIVE); KETONES,URINE (UA) NEGATIVE (NEGATIVE); LEUKOCYTE ESTERASE, URINE TRACE (NEGATIVE); NITRITE,URINE NEGATIVE (NEGATIVE); OCCULT BLOOD,URINE TRACE-INTA (NEGATIVE); PROTEIN,URINE NEGATIVE (NEGATIVE); UROBILINOGEN,URINE 0.2 (NORMAL) E.U./dL (NORMAL)
[2019-09-24] MEDS ORDERED: ONDANSETRON 4 MG/2 ML VIAL IVP STA (21:43)
[2019-09-24 22:13] LABS: BACTERIA,URINE Rare /HPF (None Seen); RBC,URINE 0-5 /HPF (0-5); SQUAMOUS EPITHELIAL CELL,UR FEW Squamous (<= Few)
[2019-09-24] MEDS ORDERED: ONDANSETRON ODT 4 MG TABLET TL PRN (22:42)
[2019-09-24] MEDS ORDERED: ONDANSETRON 4 MG/2 ML VIAL IVP PRN (22:42)
--- NOTE | 2019-09-24 22:51 | HISTORY & PHYSICAL EXAMINATION ---
Chief Complaint - Chief Complaint Chief Complaint: lightheaded and hematemesis History of Present Illness - Admitted From Admitted From:: Home/ER - History Obtained From Records Reviewed: [facility] History obtained from: Dr. hutton Exam Limitations: none - History of Present Illness HPI Comment/Other: 84-year-old female who has a previous history of iron deficiency anemia with a previous EGD done in 2015. That showed antral gastritis and small ulcers. She is followed by hematology oncology and has iron infusions. Last hemoglobin in July 2019 was 11.6. She was recently stopped on her omeprazole for the last 2 months. She is not on any nonsteroidals. She has had no change in bowel habits and is chronically constipated. Yesterday she developed nausea, and it became severe enough that she had to throw up. There is no severe retching. A small amount of blood was brought up. Between yesterday and today she is remained nauseated, and has become progressively weak and lightheaded. She was brought to the emergency room by her daughter. Here her systolic blood pressure was in the 80s when she was evaluated by the emergency room physician. With a small amount of IV fluid bolus her systolic is now 110. Stools have been dark for the last 2 weeks. Hemoglobin today is 7.6. She is now placed in observation for upper GI bleed, and possible EGD with general surgery consult. History - Past Medical History Cardiovascular: reports: None Respiratory: reports: Sleep apnea (moderate obstructive sleep apnea (AHI = 27.5 and cynthia oxygen saturation of 75%) in 2010 at [facility]. She was prescribed a CPAP and used it a few months. She wore a full face mask. She quit using the CPAP because it bothered her more than helped her sleep. She), CPAP use, Other (Left lower lobe lung cancer stage 1 [id number]. Radiosurgery 05/2018 at [facility]. Last PET CT neg) Neuro: reports: None Endocrine/Autoimmune: reports: HyPOthyroidism GI: reports: GERD, Ulcers (EGD done June 2013 was negative for a duodenal biopsy, gastric biopsy, and she had mild changes in the squamocolumnar junction consistent Chronic effects of GERD. No Foy's. EGD March 2015 with duodenal inflammation, abnormal mucosa in the distal esophagus that was friable.), Diverticulitis (Colonoscopy with polypectomy for diverticulitis July 2012. It was a hyperplastic polyp without dysplasia. ), Other (chronic iron def anemia with recurrent (+) FOBT.Iron infusion 09/2017, 04/2018, 07/2019 INFeD 1000 mg IV.) : reports: Other HEENT: reports: Chronic hearing loss Psych: reports: Depression Musculoskeletal: reports: None, Osteoarthritis Derm: reports: None MRSA Hx?: No - Past Surgical History General: reports: Cholecystectomy, Colonoscopy /SAVINGS TELLER: reports: Hysterectomy HEENT: reports: Cataracts, Tonsil/Adenoidectomy - Family & Social History Living arrangement: At home Living Situation: Alone Social History Notes: rare 1 drink with special occasions. nonsmoker. . Born [place] the [facility] 1 [place]. Lives 15 minutes away. - Substance History Use: Uses substance without health or social issues: NONE Abuse: Recurrent use of substance despite neg consequences: NONE - POLST Patient has POLST: No Meds/Allgy - Home Medications Home Medications: Ambulatory Orders Medication Instructions Recorded Confirmed Cyanocobalamin (Vitamin B-12) 1 ea SL DAILY 10/07/17 07/28/19 [Vitamin B-12 (1000 mcg sublingual)] Levothyroxine Sodium 1 tab ORAL DAILY 10/07/17 07/28/19 Omeprazole [PriLOSEC] 1 tab ORAL DAILY 10/07/17 07/28/19 PARoxetine HCl [Paxil] 1 tab ORAL DAILY 10/07/17 07/28/19 - Allergies Allergies/Adverse Reactions: Allergies Allergy/AdvReac Type Severity Reaction Status Date / Time prochlorperazine edisylate * Allergy Hives Verified 07/28/19 09:26 [From Compazine] prochlorperazine maleate * Allergy Hives Verified 07/28/19 09:26 [From Compazine] Sulfa (Sulfonamide Allergy not known Verified 07/28/19 09:26 Antibiotics) sulfamethoxazole Allergy not known Verified 07/28/19 09:26 [From Septra] trimethoprim [From Septra] Allergy not known Verified 07/28/19 09:26 Review of Systems - Constitutional Constitutional: denies: Fatigue, Fever, Chills, Malaise, Poor appetite, Diaphoresis - Eyes Eyes: denies: Pain, Irritation, Amaurosis - Ears, Nose & Throat Ears, Nose & Throat: reports: Hearing loss, Hearing aids (hates wearing them), Dentures. denies: Nasal obstruction, Nasal congestion - Cardiovascular Cariovascular: reports: Irregular heart rate. denies: Palpitations, Chest pain, Edema - Respiratory Respiratory: reports: Snoring, Apnea (moderate obstructive sleep apnea (AHI = 27.5 and cynthia oxygen saturation of 75%) in 2010 at [facility]. She was prescribed a CPAP and used it a few months. She wore a full face mask. She quit using the CPAP because it bothered her more than hel ped her sleep.), Other ( She continues to snore and wakes up from it. Recently, she had an endoscopic procedure during which she had to be bagged in order to keep her ventilated. The patient was here in 2016 and we repeated the in- laboratory polysomnography. The sleep study showed moderate obstructive sleep apnea-hypo.). denies: Cough, Sputum production, Wheezing, Hemoptysis, Orthopnea, SOB at rest, SOB with exertion - Gastrointestinal Gastrointestinal: reports: Constipation, Change in bowel habits, Black stools (more dark than black for 2 weeks). denies: Abdominal pain, Abdominal distention, Diarrhea, Rectal bleeding - Genitourinary Genitourinary: reports: Incontinence. denies: Dysuria, Frequency, Urgency - Musculoskeletal Musculoskeletal: reports: Muscle aches, Joint pain, Other (Her muscle aches and pains are associated with aging. Usually do not limit her. If she does get stiff and sore she uses a cannabis cream on the joints because she knows she cannot use nonsteroidals.) - Integumentary Integumentary: denies: Rash, Pruritis, Lesions, Dryness - Neurological Neurological: denies: General weakness, Focal weakness, Headache, Dizziness, Memory problems, Pre-existing deficit - Psychiatric Psychiatric: reports: Depression, Anxiety. denies: Suicidal, Delusions, Hallucinations, Homicidal - Endocrine Endocrine: denies: Polyuria, Polydypsia, Polyphagia - Hematologic/Lymphatic Hematologic/Lymphatic: reports: Anemia, Other (polycythemia). denies: Bruising, Petechiae Prior Level of Functionality: Still living independently in her own home. She does the housework. Drives. Pays the bills. Still actively gardens on a daily basis. 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 She loves it. Exam - Vital Signs Reviewed Vital Signs: Yes Vital Signs: Vital Signs x48h Temp Pulse Resp BP Pulse Ox 09/24/19 22:00 83 16 109/56 L 95 09/24/19 21:30 84 16 130/59 L 94 09/24/19 21:11 84 25 H 114/74 97 09/24/19 20:30 81 22 112/57 L 99 09/24/19 20:00 82 26 H 111/46 L 99 09/24/19 19:55 36.5 C 97 16 89/76 L 97 - Physical Exam General Appearance: positive: No acute distress, Alert, Other (absolutely delightful eldelry female, daughter has gone home) Eyes Bilateral: positive: EOMI, Other (pupil changes from cataract surgery) Neck: positive: No JVD, Trachea midline Respiratory: positive: Chest non-tender, No respiratory distress. negative: Wheezes, Rales, Rhonchi Cardiovascular: positive: Regular rate & rhythm, Systolic murmur. negative: Gallop/S4, Friction rub Peripheral Pulses: positive: 1+ Abdomen: positive: Non-tender, No organomegaly, Nml bowel sounds, No distention Skin: positive: Warm, Dry Extremities: positive: Non-tender, Full ROM, No pedal edema Neurologic/Psychiatric: positive: Oriented x3, CN's nml (2-12) (except deaf a bit), Motor nml Conclusion/Plan - Problem List (1) Upper GI bleeding Conclusion/Plan: With a documented known anatomy of mild GE junction changes from reflux disease, duodenal ulcers, and chronic iron deficiency anemia. We have a colonoscopy, and 2 [address]GD[address] to show us the way. She is not taking any nonsteroidals. Unclear as to why her ulcers are not healing. Previous H. pylori negative. Plan: Observation stay Serial hemoglobins No NG for now but if has another episode, will order one. Transfuse 1 unit of blood since she is lightheaded and orthostatic Surgery consult for possible EGD in the morning. She is understandably anxious about that idea because she did so badly with the last one. I have explained to her that we now know that she has apnea that we need to watch for, laryngospasm due to the fentanyl and scope passing through her vocal cords. Will be better prepared to take care of her. (2) Transient hypotension Conclusion/Plan: due to GI bleed. Plan; transfuse and monitor. at this time, floor admit Transfer to ICU if needed. (3) Hypothyroid Conclusion/Plan: resume synthroid after EGD Qualifiers: Hypothyroidism type: unspecified Qualified Code(s): E03.9 - Hypothyroidism, unspecified (4) Depression with anxiety Conclusion/Plan: resume paxil after EGD (5) Cardiomegaly Conclusion/Plan: Seen on CT which is not the usual modality to image cardiac status. She has no symptoms of cardiovascular endurance changes. No edema. No orthopnea. No chest pain. Echocardiogram is not available starting today until Saturday morning. Plan: Chest x-ray in a.m. for indirect imaging If there is any index of suspicion for symptoms, echocardiogram in the outpatient setting - Lab Results Lab results reviewed: Yes Fish Bones: 09/24/19 20:26 09/24/19 20:26 - Diagnostic Imaging Results Diagnostic Imaging Results: positive: Final report reviewed Diagnostic Imaging Results Comments: Abdomen pelvis CT shows a slightly enlarged heart. Diffuse fatty infiltration of the liver. Moderate size hiatal hernia. Numerous diverticuli. No retroperitoneal or mesenteric adenopathy. Large amount of stool in the sigmoid and moderate amount of stool in the rectum. No free air. Urinary bladder div erticuli. Left renal atrophy. Status post cholecystectomy. Core Measures - Anticipated LOS I expect patient to be DC'd or transferred within 96 hours.: Yes - DVT/VTE - Prophylaxis VTE/DVT Device ordered at admit?: Yes
[2019-09-25] MEDS ORDERED: SODIUM CHLORIDE 0.9% 500 ML IV ONE (00:09)
[2019-09-25] MEDS: SODIUM CHLORIDE FLUSH 0.9% 10 ML SYRINGE IVP SCH ×3 (02:36→20:09)
[2019-09-25] MEDS: SODIUM CHLORIDE FLUSH 0.9% 10 ML SYRINGE IVP PRN (06:24)
[2019-09-25] MEDS ORDERED: PANTOPRAZOLE 40 MG VIAL IVP SCH (07:00)
--- NOTE | 2019-09-25 07:49 | PROVIDER PROGRESS NOTE ---
Subjective - Prog Note Date Prog Note Date: 09/25/19 - Subjective Subjective: She reports feeling well today. Denies any dizziness or lightheadedness. Reports no further bleeding since hospitalization. She is eager to undergo the endoscopy as soon as possible. She would also like to go home as soon as she can. Current Medications - Current Medications Current Medications: Active Medications Acetaminophen (Tylenol) 650 mg PO Q4HR PRN PRN Reason: Pain 1 to 4 Morphine Sulfate (Morphine (Carpuject)) 2 mg IVP Q2HR PRN PRN Reason: Pain 8 to 10 Ondansetron HCl (Zofran Odt) 4 mg TL Q6HR PRN PRN Reason: Nausea / Vomiting Ondansetron HCl (Zofran Inj) 4 mg IVP Q6HR PRN PRN Reason: Nausea / Vomiting Pantoprazole Sodium (Protonix) 40 mg IVP BID LAVELLE Sodium Chloride (Normal Saline Flush 0.9%) 10 ml IVP PRN PRN PRN Reason: NEEDED PER PROVIDER ORDERS Last Admin: 09/25/19 06:24 Dose: 20 ml Documented by: Sodium Chloride (Normal Saline Flush 0.9%) 10 ml IVP 0100,0900,1700 LAVELLE Last Admin: 09/25/19 02:36 Dose: 10 ml Documented by: Cyanocobalamin (Vitamin B-12) [Vitamin B-12 (1000 mcg sublingual)] 1 ea SL DAILY 10/07/17 Levothyroxine Sodium 1 tab ORAL DAILY 10/07/17 Omeprazole [PriLOSEC] 1 tab ORAL DAILY 10/07/17 PARoxetine HCl [Paxil] 1 tab ORAL DAILY 10/07/17 Objective - Vital Signs/Intake & Output Reviewed Vital Signs: Yes Vital Signs: Vital Signs x48h Temp Pulse Pulse Resp BP BP Pulse Ox 09/25/19 05:56 96 09/25/19 05:35 37.4 C 79 15 103/43 L 09/25/19 03:22 94 09/25/19 02:52 37.2 C 78 78 20 110/39 L 110/39 L 09/25/19 02:35 36.9 C 81 20 105/39 L 09/25/19 00:00 37.1 C 79 22 113/42 L 95 Intake & Output: Intake & Output 09/22/19 09/23/19 09/24/19 08/07/20 23:59 23:59 23:59 23:59 Intake Total 1000 1360 Balance 1000 1360 - Objective General Appearance: positive: No acute distress, Alert Eyes Bilateral: positive: Normal inspection, Conjunctivae nml ENT: positive: ENT inspection nml Neck: positive: Nml inspection Respiratory: positive: No respiratory distress. negative: Wheezes, Rales Cardiovascular: positive: Regular rate & rhythm, No murmur. negative: Tachycardia, Systolic murmur Abdomen: positive: Non-tender, No distention. negative: Tenderness, Guarding, Rebound Skin: positive: Warm, Dry, Pallor Extremities: positive: Full ROM, No pedal edema Neurologic/Psychiatric: positive: Oriented x3, Motor nml. negative: Disoriented to person, Disoriented to place, Disoriented to time - Lab Results Fish Bones: 09/25/19 06:04 09/24/19 20:26 Other Labs: Lab Results x24hrs 09/25/19 09/24/19 09/24/19 Range/Units 06:04 21:25 20:40 WBC (4.8-10.8) x10^3/uL RBC (4.20-5.40) 10^6/uL Hgb 8.0 L (12.0-16.0) g/dL Hct 25.2 L (37.0-47.0) % MCV (81.0-99.0) fL MCH (27.0-31.0) pg MCHC (32.0-36.0) g/dL RDW (12.0-15.0) % Plt Count (130-450) 10^3/uL MPV (7.9-10.8) fL Neut # (Auto) (1.5-6.6) 10^3/uL Lymph # (Auto) (1.5-3.5) 10^3/uL Cedar # (Auto) (0.0-1.0) 10^3/uL Eos # (Auto) (0.0-0.7) 10^3/uL Baso # (Auto) (0.0-0.1) 10^3/uL Absolute Nucleated RBC x10^3/uL Nucleated RBC % /100WBC Sodium (135-145) mmol/L Potassium (3.5-5.0) mmol/L Chloride (101-111) mmol/L Carbon Dioxide (21-32) mmol/L Anion Gap (6-13) BUN (6-20) mg/dL Creatinine (0.4-1.0) mg/dL Estimated GFR (MDRD) (>89) Glucose (70-100) mg/dL Calcium (8.5-10.3) mg/dL Magnesium 2.0 (1.7-2.8) mg/dL Total Bilirubin (0.2-1.0) mg/dL AST (10-42) IU/L ALT (10-60) IU/L Alkaline Phosphatase (42-121) IU/L Total Protein (6.7-8.2) g/dL Albumin (3.2-5.5) g/dL Globulin (2.1-4.2) g/dL Albumin/Globulin Ratio (1.0-2.2) Lipase (22-51) U/L Urine Color YELLOW Urine Clarity CLEAR (CLEAR) Urine pH 6.0 (5.0-7.5) PH Ur Specific [place] 1.010 (1.002-1.030) Urine Protein NEGATIVE (NEGATIVE) mg/dL Urine Glucose (UA) NEGATIVE (NEGATIVE) mg/dL Urine Ketones NEGATIVE (NEGATIVE) mg/dL Urine Occult Blood TRACE-INTA (NEGATIVE) Urine Nitrite NEGATIVE (NEGATIVE) Urine Bilirubin NEGATIVE (NEGATIVE) Urine Urobilinogen 0.2 (NORMAL) (NORMAL) E.U./dL Ur Leukocyte Esterase TRACE H (NEGATIVE) Urine RBC 0-5 (0-5) /HPF Urine WBC 4-5 (0-5) /HPF Ur Squamous Epith Cells FEW Squamous (<= Few) Urine Bacteria Rare (None Seen) /HPF Ur Microscopic Review INDICATED Urine Culture Comments INDICATED Blood Type Blood Type Recheck Antibody Screen Crossmatch IS Only 09/24/19 09/24/19 09/24/19 Range/Units 20:40 20:26 20:26 WBC (4.8-10.8) x10^3/uL RBC (4.20-5.40) 10^6/uL Hgb (12.0-16.0) g/dL Hct (37.0-47.0) % MCV (81.0-99.0) fL MCH (27.0-31.0) pg MCHC (32.0-36.0) g/dL RDW (12.0-15.0) % Plt Count (130-450) 10^3/uL MPV (7.9-10.8) fL Neut # (Auto) (1.5-6.6) 10^3/uL Lymph # (Auto) (1.5-3.5) 10^3/uL Cedar # (Auto) (0.0-1.0) 10^3/uL Eos # (Auto) (0.0-0.7) 10^3/uL Baso # (Auto) (0.0-0.1) 10^3/uL Absolute Nucleated RBC x10^3/uL Nucleated RBC % /100WBC Sodium 139 (135-145) mmol/L Potassium 4.2 (3.5-5.0) mmol/L Chloride 104 (101-111) mmol/L Carbon Dioxide 25 (21-32) mmol/L Anion Gap 10.0 (6-13) BUN 57 H (6-20) mg/dL Creatinine 0.9 (0.4-1.0) mg/dL Estimated GFR (MDRD) 60 L (>89) Glucose 165 H (70-100) mg/dL Calcium 8.0 L (8.5-10.3) mg/dL Magnesium (1.7-2.8) mg/dL Total Bilirubin 0.2 (0.2-1.0) mg/dL AST 16 (10-42) IU/L ALT 14 (10-60) IU/L Alkaline Phosphatase 43 (42-121) IU/L Total Protein 5.8 L (6.7-8.2) g/dL Albumin 2.8 L (3.2-5.5) g/dL Globulin 3.0 (2.1-4.2) g/dL Albumin/Globulin Ratio 0.9 L (1.0-2.2) Lipase 37 (22-51) U/L Urine Color Urine Clarity (CLEAR) Urine pH (5.0-7.5) PH Ur Specific [place] (1.002-1.030) Urine Protein (NEGATIVE) mg/dL Urine Glucose (UA) (NEGATIVE) mg/dL Urine Ketones (NEGATIVE) mg/dL Urine Occult Blood (NEGATIVE) Urine Nitrite (NEGATIVE) Urine Bilirubin (NEGATIVE) Urine Urobilinogen (NORMAL) E.U./dL Ur Leukocyte Esterase (NEGATIVE) Urine RBC (0-5) /HPF Urine WBC (0-5) /HPF Ur Squamous Epith Cells (<= Few) Urine Bacteria (None Seen) /HPF Ur Microscopic Review Urine Culture Comments Blood Type O POSITIVE Blood Type Recheck O POSITIVE Antibody Screen NEGATIVE Crossmatch IS Only See Detail 09/24/19 Range/Units 20:26 WBC 16.9 H (4.8-10.8) x10^3/uL RBC 2.71 L (4.20-5.40) 10^6/uL Hgb 7.6 L (12.0-16.0) g/dL Hct 25.4 L (37.0-47.0) % MCV 93.7 (81.0-99.0) fL MCH 28.0 (27.0-31.0) pg MCHC 29.9 L (32.0-36.0) g/dL RDW 16.1 H (12.0-15.0) % Plt Count 309 (130-450) 10^3/uL MPV 9.7 (7.9-10.8) fL Neut # (Auto) 14.8 H (1.5-6.6) 10^3/uL Lymph # (Auto) 1.1 L (1.5-3.5) 10^3/uL Cedar # (Auto) 0.6 (0.0-1.0) 10^3/uL Eos # (Auto) 0.1 (0.0-0.7) 10^3/uL Baso # (Auto) 0.1 (0.0-0.1) 10^3/uL Absolute Nucleated RBC 0.00 x10^3/uL Nucleated RBC % 0.0 /100WBC Sodium (135-145) mmol/L Potassium (3.5-5.0) mmol/L Chloride (101-111) mmol/L Carbon Dioxide (21-32) mmol/L Anion Gap (6-13) BUN (6-20) mg/dL Creatinine (0.4-1.0) mg/dL Estimated GFR (MDRD) (>89) Glucose (70-100) mg/dL Calcium (8.5-10.3) mg/dL Magnesium (1.7-2.8) mg/dL Total Bilirubin (0.2-1.0) mg/dL AST (10-42) IU/L ALT (10-60) IU/L Alkaline Phosphatase (42-121) IU/L Total Protein (6.7-8.2) g/dL Albumin (3.2-5.5) g/dL Globulin (2.1-4.2) g/dL Albumin/Globulin Ratio (1.0-2.2) Lipase (22-51) U/L Urine Color Urine Clarity (CLEAR) Urine pH (5.0-7.5) PH Ur Specific [place] (1.002-1.030) Urine Protein (NEGATIVE) mg/dL Urine Glucose (UA) (NEGATIVE) mg/dL Urine Ketones (NEGATIVE) mg/dL Urine Occult Blood (NEGATIVE) Urine Nitrite (NEGATIVE) Urine Bilirubin (NEGATIVE) Urine Urobilinogen (NORMAL) E.U./dL Ur Leukocyte Esterase (NEGATIVE) Urine RBC (0-5) /HPF Urine WBC (0-5) /HPF Ur Squamous Epith Cells (<= Few) Urine Bacteria (None Seen) /HPF Ur Microscopic Review Urine Culture Comments Blood Type Blood Type Recheck Antibody Screen Crossmatch IS Only ABX Reporting Has patient been on IV antibiotics over the past 48 hours?: No Assessment/Plan - Problem List (1) Upper GI bleeding Impression: She presents with an episode of hematemesis and acute blood loss anemia. She has prior history of GERD and duodenitis. We will continue her on Protonix IV twice daily. General surgery has been consulted for endoscopy. (2) Acute blood loss anemia Impression: She received 1 unit of packed red blood cell for hemoglobin 7.6 but she did not respond appropriately as it only improved to 8.0. There has been no further evidence of bleeding during his hospitalization. We will continue to monitor hemoglobin every 8 hours. SCDs for DVT prophylaxis. She has 1 unit of blood on hold which she will transfuse if she becomes hypotensive or develops evidence of bleeding. Plan is for endoscopy today. (3) Transient hypotension Impression: This has improved. This is secondary to the GI bleed. She does not have a history of hypertension. Her blood pressure responded well to IV fluids and a unit of packed red blood cells. Her systolic has been stable in the 110s. She does have a wide pulse pressure with low diastolics. Continue her on IV fluids. Monitor her blood pressure. (4) Leukocytosis Impression: Her white count was elevated at 16.9 on admission with a left shift. CT of the abdomen and pelvis not reveal any obvious source of infection and her lung bases are clear. Her urinalysis also unremarkable. Suspect this may be reactive in nature. We will repeat a CBC today and continue to monitor for signs of infection. No indication for antibiotics at this time. (5) Depression with anxiety Impression: We will continue her home Paxil. (6) Hypothyroid Impression: Continue home synthroid. Qualifiers: Hypothyroidism type: unspecified Qualified Code(s): E03.9 - Hypothyroidism, unspecified
--- NOTE | 2019-09-25 08:30 | PHARMACY PROGRESS NOTE ---
- Best Possible Medication History Admit Date and Time: 09/24/19 4122 Processed by: Pharmacy Medication History completed: Yes Secondary Source(s): Pharmacy records, Insurance records As the person ultimately responsible for medication therapy, providers are able to order a medication from an existing home medication list in [facility] via the "Reconcile Routine" prior to Confirmation of that medication by it support analyst. Such practice is discouraged except when the physician, in their clinical judgment, deems that a medical need exists for a medication without regard to previous use.
[2019-09-25] MEDS ORDERED: LACTATED RINGERS 1,000 ML IV ONE ×3 (09:03→18:38)
[2019-09-25] MEDS: LACTATED RINGERS 1,000 ML IV SCH ×2 (10:20→20:07)
--- NOTE | 2019-09-25 11:46 | CONSULTATION NOTE ---
Referring Provider Name of Referring Provider:: Dr. Liat Tee Consult Date: 09/25/19 Chief Complaint - Chief Complaint Chief Complaint: Gastrointestinal Bleed History of Present Illness - Admitted From Admitted From:: Home/ER - History Obtained From Records Reviewed: Patient, EMR, hospitalist service. History obtained from: Patient, EMR, hospitalist service. - History of Present Illness HPI Comment/Other: 84-year-old female who presents with hypotension and melanotic stool with known history of upper GI bleed on previous upper endoscopy. Admitted to hospital service and transfused overnight. She had recently been discontinued for her proton pump inhibition. No recent nonsteroidal use. Last upper endoscopy was in 2015. Previous to that she had had pathology from 2013 that revealed mild chronic gastritis and esophagitis. Last colonoscopy was in 2012 no adenomatous changes on pathology from polypectomy. Hospital service requesting endoscopic evaluation for presumptive gastrointestinal bleed. History - Past Medical History Cardiovascular: reports: None Respiratory: reports: Sleep apnea, Other Neuro: reports: None Endocrine/Autoimmune: reports: HyPOthyroidism GI: reports: GERD, Ulcers (gastritis and small ulcers noted on EGD in 2015 (she had larygnospasm episode at end of procedure at that time). Had been on Omeprazole until 2 months ago when taken off it by Hematology due to it interfering with other med.), Diverticulitis, Other : reports: Other HEENT: reports: Chronic hearing loss Psych: reports: Depression Musculoskeletal: reports: None, Osteoarthritis Derm: reports: None MRSA Hx?: No Other Past Medical History: Involuntary moving toes. - Past Surgical History General: reports: Cholecystectomy, Colonoscopy /[employer]: reports: Hysterectomy HEENT: reports: Tonsil/Adenoidectomy Derm: reports: Skin cancer surgery - Family & Social History Living arrangement: At home Living Situation: Alone Social History Notes: rare 1 drink with special occasions. nonsmoker. . Born and raised in the [facility]. Lives 15 minutes away. - Substance History Use: Uses substance without health or social issues: NONE Abuse: Recurrent use of substance despite neg consequences: NONE - POLST Patient has POLST: No Meds/Allgy - Home Medications Home Medications: Ambulatory Orders Medication Instructions Recorded Confirmed Levothyroxine Sodium 50 mcg ORAL QDAC 10/07/17 09/25/19 Omeprazole [PriLOSEC] 20 mg ORAL DAILY 10/07/17 09/25/19 PARoxetine HCl [Paxil] 20 mg ORAL DAILY 10/07/17 09/25/19 - Allergies Allergies/Adverse Reactions: Allergies Allergy/AdvReac Type Severity Reaction Status Date / Time prochlorperazine edisylate * Allergy Hives Verified 07/28/19 09:26 [From Compazine] prochlorperazine maleate * Allergy Hives Verified 07/28/19 09:26 [From Compazine] Sulfa (Sulfonamide Allergy not known Verified 07/28/19 09:26 Antibiotics) sulfamethoxazole Allergy not known Verified 07/28/19 09:26 [From Septra] trimethoprim [From Septra] Allergy not known Verified 07/28/19 09:26 Review of Systems - Constitutional Constitutional: reports: Fatigue, Weakness - Gastrointestinal Gastrointestinal: reports: Black stools, Bloody stools, Nausea, Vomiting, Steven blood emesis - Neurological Neurological: reports: General weakness Exam - Vital Signs Vital Signs: Vital Signs x48h Temp Pulse Pulse Resp BP BP Pulse Ox 09/25/19 11:23 37.3 C 78 16 94/78 92 09/25/19 08:48 37.1 C 85 18 104/40 L 94 09/25/19 05:56 96 09/25/19 05:35 37.4 C 79 15 103/43 L - Physical Exam General Appearance: positive: No acute distress Eyes Bilateral: positive: Normal inspection, PERRL, EOMI ENT: positive: ENT inspection nml Neck: positive: Nml inspection Respiratory: positive: Chest non-tender, No respiratory distress, Breath sounds nml. negative: Wheezes, Rales Cardiovascular: positive: Regular rate & rhythm Abdomen: positive: Non-tender, No distention. negative: Tenderness, Guarding, Rebound Rectal: positive: Other (Deferred likely to undergo colonoscopy.) Skin: positive: Color nml Extremities: positive: Non-tender, Full ROM Neurologic/Psychiatric: positive: Oriented x3, CN's nml (2-12) Conclusion and Plan - Lab Results Laboratory Results 09/25/19 06:04: Hgb 8.0 L, Hct 25.2 L 09/24/19 21:25: Urine Color YELLOW, Urine Clarity CLEAR, Urine pH 6.0, Ur Specific [place] 1.010, Urine Protein NEGATIVE, Urine Glucose (UA) NEGATIVE, Urine Ketones NEGATIVE, Urine Occult Blood TRACE-INTA, Urine Nitrite NEGATIVE, Urine Bilirubin NEGATIVE, Urine Urobilinogen 0.2 (NORMAL), Ur Leukocyte Esterase TRACE H, Urine RBC 0-5, Urine WBC 4-5, Ur Squamous Epith Cells FEW Squamous, Urine Bacteria Rare, Ur Microscopic Review INDICATED, Urine Culture Comments INDICATED 09/24/19 20:40: Magnesium 2.0 09/24/19 20:40: Blood Type O POSITIVE, Antibody Screen NEGATIVE, Crossmatch IS Only See Detail 09/24/19 20:26: Blood Type Recheck O POSITIVE 09/24/19 20:26: Sodium 139, Potassium 4.2, Chloride 104, Carbon Dioxide 25, Anion Gap 10.0, BUN 57 H, Creatinine 0.9, Estimated GFR (MDRD) 60 L, Glucose 165 H, Calcium 8.0 L, Total Bilirubin 0.2, AST 16, ALT 14, Alkaline Phosphatase 43, Total Protein 5.8 L, Albumin 2.8 L, Globulin 3.0, Albumin/Globulin Ratio 0.9 L, Lipase 37 09/24/19 20:26: WBC 16.9 H, RBC 2.71 L, Hgb 7.6 L, Hct 25.4 L, MCV 93.7, MCH 28.0, MCHC 29.9 L, RDW 16.1 H, Plt Count 309, MPV 9.7, Neut # (Auto) 14.8 H, Lymph # (Auto) 1.1 L, [place] # (Auto) 0.6, Eos # (Auto) 0.1, Baso # (Auto) 0.1, Absolute Nucleated RBC 0.00, Nucleated RBC % 0.0 - Diagnosis Diagnosis: Presumptive upper GI bleed. History of gastritis and esophagitis. Acute blood loss anemia. Hematemesis and melena - Plan Plan: 1. Admit to inpatient, with hospitalist service 2. Trend H&H, transfuse as appropriate. 3. Plan upper endoscopy to evaluate source, will consider colonoscopy if upper is unremarkable, however given urgency of intervention will defer bowel prep at this time. 4. Aggressive resuscitation. 5. Bowel rest 6. PPI infusion and consider Carafate pending results. 7. Will discuss with anesthesia the patient's historic response to monitored anesthesia care
[2019-09-25 12:18] LABS: BASOPHILS # (AUTO) 0.1 10^3/uL (0.0-0.1); BASOPHILS % (AUTO) 0.5 %; EOSINOPHILS # (AUTO) 0.1 10^3/uL (0.0-0.7); EOSINOPHILS % (AUTO) 0.7 %; HGB - HEMOGLOBIN 7.7 g/dL (12.0-16.0); LYMPHOCYTES # (AUTO) 1.2 10^3/uL (1.5-3.5); LYMPHOCYTES % (AUTO) 9.2 %; MEAN CORPUSCULAR VOLUME 93.8 fL (81.0-99.0); MONOCYTES % (AUTO) 7.9 %; NEUTROPHILS # (AUTO) 10.1 10^3/uL (1.5-6.6); PLT - PLATELET COUNT 228 10^3/uL (130-450); RED BLOOD COUNT 2.57 10^6/uL (4.20-5.40); RED CELL DISTRIBUTION WIDTH 16.2 % (12.0-15.0); WHITE BLOOD COUNT 12.5 x10^3/uL (4.8-10.8)
--- NOTE | 2019-09-25 15:09 | ANESTHESIA ---
Pre-Anesthesia VS, & Labs - Diagnosis Diagnosis Presumptive upper GI bleed History of gastritis and esophagitis Acute blood loss anemia Hematemesis and melena - Procedure egd Vital Signs: Temp Pulse Resp BP Pulse Ox 37.3 C 78 16 94/78 92 09/25/19 11:23 09/25/19 11:23 09/25/19 11:23 09/25/19 11:23 09/25/19 11:23 Height 5 ft 5 in Weight (kg) 58.5 kg Body Mass Index 21.4 - NPO >8 hours - Is Patient ?: No - Lab Results Current Lab Results: Laboratory Tests 09/25/19 12:05: WBC 12.5 H, RBC 2.57 L, Hgb 7.7 L, Hct 24.1 L, MCV 93.8, MCH 30.0, MCHC 32.0, RDW 16.2 H, Plt Count 228, MPV 10.0, Neut # (Auto) 10.1 H, Lymph # (Auto) 1.2 L, [place] # (Auto) 1.0, Eos # (Auto) 0.1, Baso # (Auto) 0.1, Absolute Nucleated RBC 0.00, Nucleated RBC % 0.0 09/25/19 06:04: Hgb 8.0 L, Hct 25.2 L 09/24/19 20:40: Magnesium 2.0 09/24/19 20:40: Blood Type O POSITIVE, Antibody Screen NEGATIVE, Crossmatch IS Only See Detail 09/24/19 20:26: Blood Type Recheck O POSITIVE 09/24/19 20:26: Sodium 139, Potassium 4.2, Chloride 104, Carbon Dioxide 25, Anion Gap 10.0, BUN 57 H, Creatinine 0.9, Estimated GFR (MDRD) 60 L, Glucose 165 H, Calcium 8.0 L, Total Bilirubin 0.2, AST 16, ALT 14, Alkaline Phosphatase 43, Total Protein 5.8 L, Albumin 2.8 L, Globulin 3.0, Albumin/Globulin Ratio 0.9 L, Lipase 37 09/24/19 20:26: WBC 16.9 H, RBC 2.71 L, Hgb 7.6 L, Hct 25.4 L, MCV 93.7, MCH 28.0, MCHC 29.9 L, RDW 16.1 H, Plt Count 309, MPV 9.7, Neut # (Auto) 14.8 H, Lymph # (Auto) 1.1 L, [place] # (Auto) 0.6, Eos # (Auto) 0.1, Baso # (Auto) 0.1, Absolute Nucleated RBC 0.00, Nucleated RBC % 0.0 Fish Bones: 09/25/19 12:05 09/24/19 20:26 Home Medications and Allergies Active Medications Acetaminophen (Tylenol) 650 mg PO Q4HR PRN PRN Reason: Pain 1 to 4 Lactated Ringer's (Lr) 1,000 mls @ 100 mls/hr IV .Q10H [facility] Last Admin: 09/25/19 10:20 Dose: 100 mls/hr Documented by: Levothyroxine Sodium (Synthroid) 50 mcg PO QDAC [facility] Morphine Sulfate (Morphine (Carpuject)) 2 mg IVP Q2HR PRN PRN Reason: Pain 8 to 10 Ondansetron HCl (Zofran Odt) 4 mg TL Q6HR PRN PRN Reason: Nausea / Vomiting Ondansetron HCl (Zofran Inj) 4 mg IVP Q6HR PRN PRN Reason: Nausea / Vomiting Pantoprazole Sodium (Protonix) 40 mg IVP BID [facility] Paroxetine HCl (Paxil) 20 mg PO DAILY [facility] Sodium Chloride (Normal Saline Flush 0.9%) 10 ml IVP PRN PRN PRN Reason: NEEDED PER PROVIDER ORDERS Last Admin: 09/25/19 06:24 Dose: 20 ml Documented by: Sodium Chloride (Normal Saline Flush 0.9%) 10 ml IVP 0100,0900,1700 [facility] Last Admin: 09/25/19 08:54 Dose: 10 ml Documented by: Levothyroxine Sodium 50 mcg ORAL QDAC 10/07/17 Omeprazole [PriLOSEC] 20 mg ORAL DAILY 10/07/17 PARoxetine HCl [Paxil] 20 mg ORAL DAILY 10/07/17 Allergies/Adverse Reactions: Allergies Allergy/AdvReac Type Severity Reaction Status Date / Time prochlorperazine edisylate * Allergy Hives Verified 07/28/19 09:26 [From Compazine] prochlorperazine maleate * Allergy Hives Verified 07/28/19 09:26 [From Compazine] Sulfa (Sulfonamide Allergy not known Verified 07/28/19 09:26 Antibiotics) sulfamethoxazole Allergy not known Verified 07/28/19 09:26 [From Septra] trimethoprim [From Septra] Allergy not known Verified 07/28/19 09:26 Anes History & Medical History - Anesthetic History Anesthesia Complications: reports: Slow wake-up - Medical History Cardiovascular: reports: None Pulmonary: reports: Sleep apnea, Other Gastrointestinal: reports: GERD, Ulcers (gastritis and small ulcers noted on EGD in 2016 (she had larygnospasm episode at end of procedure at that time). Had been on Omeprazole until 2 months ago when taken off it by Hematology due to it interfering with other med.), Diverticulitis, Other Urinary: reports: Other Neuro: reports: None Musculoskeletal: reports: None, Osteoarthritis Endocrine/Autoimmune: reports: HyPOthyroidism Blood Disorders: reports: Anemia Skin: reports: None Smoking Status: Never smoker Other Past Medical History: Involuntary moving toes. - Surgical History General: Cholecystectomy, Colonoscopy Eyes Ears Nose Throat (EENT): Tonsil/Adenoidectomy Gynecologic: Hysterectomy Dermatologic: Skin cancer surgery Exam General: Alert Dental: WNL Mallampati classification: II Thyromental Distance: greater than 6 cm Respiratory: Lungs clear Cardiovascular: Regular rate Plan Anesthesia Type: MAC Consent for Procedure(s) Verified and Reviewed: Yes Code Status: Attempt Resuscitation ASA classification: 3-Severe systemic disease Is this case an emergency?: Yes
[2019-09-25] MEDS ORDERED: ONDANSETRON 4 MG/2 ML VIAL IVP PRN (17:45)
[2019-09-25] MEDS ORDERED: NALOXONE 0.4 MG/ML VIAL IVP PRN (17:45)
[2019-09-25] MEDS ORDERED: ePHEDrine 50 MG/ML VIAL IVP PRN (17:45)
[2019-09-25] MEDS ORDERED: ATROPINE ABBOJECT 1 MG/10 ML SYRINGE IVP PRN (17:45)
--- NOTE | 2019-09-25 17:57 | ANESTHESIA POST OP EVALUATION ---
Anesthesia Post Eval - Post Anesthesia Eval Vitals: Last Vital Signs Temp 37.3 C 09/25/19 17:30 Pulse 82 09/25/19 17:45 Resp 22 09/25/19 17:45 BP 107/42 L 09/25/19 17:45 Pulse Ox 100 09/25/19 17:45 CV Function Including HR & BP: positive: Stable Pain Control: positive: Satisfactory Nausea & Vomiting: positive: Negative Mental Status: positive: Baseline, Patient Participates Respiratory Status: Airway Patent Hydration Status: Satisfactory Anesthesia Complications: positive: None
[2019-09-25] MEDS ORDERED: LACTATED RINGERS 1,000 ML IV SCH (18:00)
--- NOTE | 2019-09-25 18:38 | XRAY Report ---
PROCEDURE: Chest for Line Placement INDICATIONS: Tube placement TECHNIQUE: One view of the chest was acquired. COMPARISON: 04/28/2018 CT chest FINDINGS: Surgical changes and devices: An enteric tube has been placed, which terminates outside the field of view inferior to the diaphragm. The tube is coiled within the proximal stomach. There appears to be h iatal hernia in which the tube is also coiled. Lungs and pleura: Left pleural effusion with overlying atelectasis. Mediastinum: Mediastinal contours appear normal. Heart size is normal. Bones and chest wall: No suspicious bony lesions. Overlying soft tissues appear unremarkable. IMPRESSION: Enteric tube terminates below the diaphragm outside the [id number]. Proximal portion of the tube i s coiled within the patient's hiatal hernia. Left pleural effusion with overlying atelectasis, not pr esent on the comparison CT chest. Reviewed by: Gonzalo Bagley MD on 09/25/2019 6:37 PM PDT Approved by: Gonzalo Bagley MD on 09/25/2019 6:37 PM PDT Station ID: [id number]
[2019-09-25 20:03] LABS: HGB - HEMOGLOBIN 8.1 g/dL (12.0-16.0)
[2019-09-25] MEDS: DOCUSATE SODIUM 100 MG CAPSULE PO SCH (22:28)
[2019-09-25] MEDS: SUCRALFATE 1 GM/10 ML UDC NG SCH (22:28)
[2019-09-25] MEDS: PANTOPRAZOLE 40 MG VIAL IVP SCH (22:28)
[2019-09-25] MEDS: polyethylene glycoL 3350 17 GM PACKET NG SCH (22:29)
[2019-09-25] MEDS ORDERED: ACETAMINOPHEN 1,000 MG/100 ML 100 ML IV PRN (23:46)
[2019-09-26] MEDS: SODIUM CHLORIDE FLUSH 0.9% 10 ML SYRINGE IVP SCH ×3 (00:33→19:10)
[2019-09-26 05:30] LABS: BASOPHILS # (AUTO) 0.1 10^3/uL (0.0-0.1); BASOPHILS % (AUTO) 0.3 %; EOSINOPHILS # (AUTO) 0.1 10^3/uL (0.0-0.7); EOSINOPHILS % (AUTO) 0.3 %; LYMPHOCYTES # (AUTO) 1.4 10^3/uL (1.5-3.5); LYMPHOCYTES % (AUTO) 7.4 %; MEAN CORPUSCULAR HEMOGLOBIN 29.4 pg (27.0-31.0); MEAN CORPUSCULAR HGB CONC 31.4 g/dL (32.0-36.0); MEAN CORPUSCULAR VOLUME 93.7 fL (81.0-99.0); MEAN PLATELET VOLUME 9.8 fL (7.9-10.8); MONOCYTES % (AUTO) 5.3 %; NEUTROPHILS # (AUTO) 16.7 10^3/uL (1.5-6.6); PLT - PLATELET COUNT 211 10^3/uL (130-450); RED BLOOD COUNT 2.38 10^6/uL (4.20-5.40); RED CELL DISTRIBUTION WIDTH 16.9 % (12.0-15.0); WHITE BLOOD COUNT 19.4 x10^3/uL (4.8-10.8)
[2019-09-26 05:31] LABS: CALCIUM 7.4 mg/dL (8.5-10.3); CREATININE 0.8 mg/dL (0.4-1.0)
[2019-09-26] MEDS: LACTATED RINGERS 1,000 ML IV SCH (06:07)
[2019-09-26] MEDS: LEVOTHYROXINE 25 MCG TABLET NG SCH (06:10)
[2019-09-26] MEDS: SUCRALFATE 1 GM/10 ML UDC NG SCH ×4 (06:10→22:43)
[2019-09-26] MEDS ORDERED: LEVOTHYROXINE 25 MCG TABLET PO SCH (07:00)
--- NOTE | 2019-09-26 07:26 | PROVIDER PROGRESS NOTE ---
Subjective - Prog Note Date Prog Note Date: 09/26/19 - Subjective Subjective: She reports feeling rotten today. She denies any chest pain or dyspnea. She pulled out the Dobbhoff yesterday as she thought she would need to adjust that for the tube feeds and she did not want to deal with that. She reports no abdominal pain. No nausea or vomiting. Current Medications - Current Medications Current Medications: Active Medications Acetaminophen (Tylenol) 650 mg PO Q4HR PRN PRN Reason: Pain 1 to 4 Atropine Sulfate () 0.5 mg IVP Q5M PRN PRN Reason: Bradycardia Stop: 09/26/19 17:45 Docusate Sodium (Colace 100mg Capsule) 100 mg PO BID [facility] Last Admin: 09/26/19 09:49 Dose: 100 mg Documented by: Ephedrine Sulfate () 10 mg IVP Q5M PRN PRN Reason: HYPOTENSION Stop: 09/26/19 17:45 Lactated Ringer's (Lr) 1,000 mls @ 100 mls/hr IV .Q10H [facility] Last Infusion: 09/26/19 15:23 Dose: 0 mls/hr Documented by: Acetaminophen (Ofirmev) 100 mls @ 400 mls/hr IV Q6HR PRN PRN Reason: FEVER > 100.5 F Last Infusion: 09/26/19 01:40 Dose: Infused Documented by: Ceftriaxone Sodium 2 gm/ (Sodium Chloride) 100 mls @ 200 mls/hr IV DAILY [facility] Last Infusion: 09/26/19 08:52 Dose: Infused Documented by: Metronidazole (Flagyl 500 Mg/100 Ml) 500 mg in 100 mls @ 100 mls/hr IV Q8H [facility] Last Infusion: 09/26/19 10:45 Dose: Infused Documented by: Potassium Chloride (Potassium Chloride) 10 meq in 100 mls @ 100 mls/hr IV Q1H [facility] Stop: 09/26/19 18:59 Levothyroxine Sodium (Synthroid) 50 mcg NG QDAC [facility] Last Admin: 09/26/19 06:10 Dose: 50 mcg Documented by: Morphine Sulfate (Morphine (Carpuject)) 2 mg IVP Q2HR PRN PRN Reason: Pain 8 to 10 Naloxone HCl (Narcan) 0.1 mg IVP Q2M PRN PRN Reason: RESP RATE <8 Stop: 09/26/19 17:45 Ondansetron HCl (Zofran Odt) 4 mg TL Q6HR PRN PRN Reason: Nausea / Vomiting Ondansetron HCl (Zofran Inj) 4 mg IVP Q6HR PRN PRN Reason: Nausea / Vomiting Ondansetron HCl (Zofran Inj) 4 mg IVP ONCE PRN PRN Reason: N/V (First Choice) Stop: 09/26/19 17:45 Pantoprazole Sodium (Protonix) 40 mg IVP BID [facility] Last Admin: 09/26/19 09:49 Dose: 40 mg Documented by: Paroxetine HCl (Paxil) 20 mg NG DAILY [facility] Last Admin: 09/26/19 09:49 Dose: 20 mg Documented by: Polyethylene Glycol (Miralax) 17 gm NG BID [facility] Last Admin: 09/26/19 09:49 Dose: Not Given Documented by: Sodium Chloride (Normal Saline Flush 0.9%) 10 ml IVP PRN PRN PRN Reason: NEEDED PER PROVIDER ORDERS Last Admin: 09/25/19 06:24 Dose: 20 ml Documented by: Sodium Chloride (Normal Saline Flush 0.9%) 10 ml IVP 0100,0900,1700 [facility] Last Admin: 09/26/19 09:50 Dose: 10 ml Documented by: Sucralfate (Carafate) 1 gm NG 0700,1100,1600,2200 [facility] Last Admin: 09/26/19 13:55 Dose: 1 gm Documented by: Levothyroxine Sodium 50 mcg ORAL QDAC 10/07/17 Omeprazole [PriLOSEC] 20 mg ORAL DAILY 10/07/17 PARoxetine HCl [Paxil] 20 mg ORAL DAILY 10/07/17 Objective - Vital Signs/Intake & Output Reviewed Vital Signs: Yes Vital Signs: Vital Signs x48h Temp Pulse Resp BP Pulse Ox 09/26/19 05:24 57 L 16 114/40 L 95 09/26/19 05:00 37.7 C H 77 16 91/31 L 91 L 09/26/19 01:46 37.6 C H 09/25/19 23:37 38.8 C H 88 20 103/34 L 93 Intake & Output: Intake & Output 09/23/19 09/24/19 09/25/19 09/26/19 23:59 23:59 23:59 23:59 Intake Total 1000 4338.333 1100 Output Total 550 100 Balance 1000 3788.333 1000 - Objective General Appearance: positive: Alert, Mild distress Eyes Bilateral: positive: Normal inspection ENT: positive: ENT inspection nml Neck: positive: Nml inspection Respiratory: positive: No respiratory distress, Other (Diminished breath sounds in the bases.). negative: Wheezes, Rales Cardiovascular: positive: Regular rate & rhythm, No murmur. negative: Tachycardia, Systolic murmur Abdomen: positive: Non-tender, No distention. negative: Tenderness Skin: positive: Warm, Dry, Pallor Extremities: positive: Full ROM, No pedal edema Neurologic/Psychiatric: positive: Oriented x3, Motor nml. negative: Disoriented to person, Disoriented to place, Disoriented to time - Lab Results Fish Bones: 09/26/19 05:02 09/26/19 05:02 Other Labs: Lab Results x24hrs 09/26/19 09/26/19 09/25/19 Range/Units 05:02 05:02 19:55 WBC 19.4 H (4.8-10.8) x10^3/uL RBC 2.38 L (4.20-5.40) 10^6/uL Hgb 7.0 L* 8.1 L (12.0-16.0) g/dL Hct 22.3 L 25.5 L (37.0-47.0) % MCV 93.7 (81.0-99.0) fL MCH 29.4 (27.0-31.0) pg MCHC 31.4 L (32.0-36.0) g/dL RDW 16.9 H (12.0-15.0) % Plt Count 211 (130-450) 10^3/uL MPV 9.8 (7.9-10.8) fL Neut # (Auto) 16.7 H (1.5-6.6) 10^3/uL Lymph # (Auto) 1.4 L (1.5-3.5) 10^3/uL [place] # (Auto) 1.0 (0.0-1.0) 10^3/uL Eos # (Auto) 0.1 (0.0-0.7) 10^3/uL Baso # (Auto) 0.1 (0.0-0.1) 10^3/uL Absolute Nucleated RBC 0.00 x10^3/uL Nucleated RBC % 0.0 /100WBC Sodium 138 (135-145) mmol/L Potassium 3.2 L (3.5-5.0) mmol/L Chloride 106 (101-111) mmol/L Carbon Dioxide 28 (21-32) mmol/L Anion Gap 4.0 L (6-13) BUN 18 (6-20) mg/dL Creatinine 0.8 (0.4-1.0) mg/dL Estimated GFR (MDRD) 68 L (>89) Glucose 102 H (70-100) mg/dL Calcium 7.4 L (8.5-10.3) mg/dL Crossmatch IS Only 09/25/19 09/24/19 Range/Units 12:05 20:40 WBC 12.5 H (4.8-10.8) x10^3/uL RBC 2.57 L (4.20-5.40) 10^6/uL Hgb 7.7 L (12.0-16.0) g/dL Hct 24.1 L (37.0-47.0) % MCV 93.8 (81.0-99.0) fL MCH 30.0 (27.0-31.0) pg MCHC 32.0 (32.0-36.0) g/dL RDW 16.2 H (12.0-15.0) % Plt Count 228 (130-450) 10^3/uL MPV 10.0 (7.9-10.8) fL Neut # (Auto) 10.1 H (1.5-6.6) 10^3/uL Lymph # (Auto) 1.2 L (1.5-3.5) 10^3/uL [place] # (Auto) 1.0 (0.0-1.0) 10^3/uL Eos # (Auto) 0.1 (0.0-0.7) 10^3/uL Baso # (Auto) 0.1 (0.0-0.1) 10^3/uL Absolute Nucleated RBC 0.00 x10^3/uL Nucleated RBC % 0.0 /100WBC Sodium (135-145) mmol/L Potassium (3.5-5.0) mmol/L Chloride (101-111) mmol/L Carbon Dioxide (21-32) mmol/L Anion Gap (6-13) BUN (6-20) mg/dL Creatinine (0.4-1.0) mg/dL Estimated GFR (MDRD) (>89) Glucose (70-100) mg/dL Calcium (8.5-10.3) mg/dL Crossmatch IS Only See Detail ABX Reporting Has patient been on IV antibiotics over the past 48 hours?: No Assessment/Plan - Problem List (1) Tyra-Tom tear Impression: The likely source of her bleeding. This was evident on EGD yesterday and this was clipped. A Dobbhoff was placed post endoscopy but this was pulled out by the patient overnight. She remains to be strictly n.p.o. given the Tyra- Tom tear. Will discuss with general surgery regarding placing another Dobbhoff for tube feeds or proceeding with PEG. We will continue her on Protonix 40 mg IV twice daily. Continue her on Carafate. Avoid NSAIDs. (2) Acute blood loss anemia Impression: She has already required 1 unit of packed red blood cells during this ho spitalization. Hemoglobin has decreased again this morning to 7. We will transfuse her 2 units of packed red blood cells. We will continue to trend her hemoglobin every 8 hours. We will transfuse for goal hemoglobin greater than 7. Continue with SCDs for DVT prophylaxis. (3) Fever Impression: She spiked a fever overnight with a temperature of 38.8C. Her white count has increased this morning as well to nearly 20,000. Her imaging on admission did n ot suggest any obvious source of infection and her urinalysis was unremarkable. We will start her empirically on ceftriaxone and Flagyl. We will repeat a chest x-ray today. Obtain blood cultures. Trend her CBC. Of her clinical course, we will also consider obtaining a CT of the chest as well as abdomen pelvis to ensure there is no perforation given the Tyra-Tom tear. (4) Leukocytosis Impression: White count is increased today to nearly 20,000. She is also had a fever overnight as mentioned above. We will start her empirically on ceftriaxone and Flagyl IV. We will obtain blood cultures and repeat chest x-ray. (5) Depression with anxiety Impression: Continue home medications. (6) Hypothyroid Impression: Continue her home Synthroid. Qualifiers: Hypothyroidism type: unspecified Qualified Code(s): E03.9 - Hypothyroidism, unspecified
[2019-09-26] MEDS: cefTRIAXone 2 GM in SODIUM CHLORIDE 0.9% MINIBAG 100 ML IV SCH (07:52)
[2019-09-26] MEDS ORDERED: metroNIDAZOLE 500 MG/100 ML 500 MG/100 ML BAG IV SCH (08:00)
--- NOTE | 2019-09-26 08:35 | XRAY Report ---
PROCEDURE: Chest 1 View X-Ray INDICATIONS: Hypoxia. Fever. TECHNIQUE: One view of the chest was acquired. COMPARISON: 09/25/2019 FINDINGS: Surgical changes and devices: Surgical clips at the GE junction and biopsy clip in the left breast.. Lungs and pleura: No pleural effusions or pneumothorax. Lungs are hyperinflated. There is a meniscu s sign laterally in the left lower lung and left lateral lung base opacity.. Mediastinum: Mediastinal contour demonstrates a probable moderate to large hiatal hernia. Heart size is partially obscured by left lateral lower lung density. Bones and chest wall: There is moderate thoracic scoliosis and mild demineralization. No suspicious bony lesions. Overlying soft tissues appear unremarkable. IMPRESSION: 1. Chronic findings of COPD. 2. Stable left pleural effusion and probable atelectasis, similar compared to the most recent prior s tudy. 3. Probable moderate to large hiatal hernia. Reviewed by: Luz Garay MD on 09/26/2019 7:34 AM [facility] Approved by: Luz Garay MD on 09/26/2019 7:34 AM [facility] Station ID: [id number]
[2019-09-26] MEDS ORDERED: PARoxetine 10 MG TABLET PO SCH (09:00)
[2019-09-26] MEDS: PARoxetine 10 MG TABLET NG SCH (09:49)
[2019-09-26] MEDS: DOCUSATE SODIUM 100 MG CAPSULE PO SCH ×2 (09:49→22:42)
[2019-09-26] MEDS: polyethylene glycoL 3350 17 GM PACKET NG SCH ×2 (09:49→22:43)
[2019-09-26] MEDS: PANTOPRAZOLE 40 MG VIAL IVP SCH ×2 (09:49→21:32)
[2019-09-26] MEDS: POTASSIUM CHLOR 10 MEQ/100 ML 10 MEQ/100 ML BAG IV SCH ×6 (09:51→19:08)
[2019-09-26] MEDS ORDERED: IOVERSOL 320 50 ML VIAL ONE (12:03)
[2019-09-26] MEDS ORDERED: IOVERSOL 320 100 ML VIAL IVP ONE ×2 (12:03→13:29)
--- NOTE | 2019-09-26 12:46 | PROVIDER PROGRESS NOTE ---
Progress Note Postoperative day #1 status post upper endoscopy with findings as per EMR. Tyra-Tom tear with significant blood loss anemia. Multiply transfused. Weighted gastric tube placed postpyloric during upper endoscopy. Patient has pulled out tube unfortunately. Discussed with hospitalist service starting TPN. Stooling: Several times per week Pain: Denies Bleeding: Has become melanotic recently Appetite: Decreased Weight loss/gain: Significant Abdomen soft nontender nondistended no rebound or guarding. Labs reviewed and plan of care discussed with hospital service. 84-year-old female with hiatal hernia with significant upper gastrointestinal bleed secondary to Tyra-Tom tear. Multiply transfused. Postpyloric weighted feeding tube placed which was self discontinued by patient. Leukocytosis, with fever today. Concerning for sepsis. In the setting of Tyra-Tom tear evolution with Boerhaave's within differential. CT chest abdomen pelvis ordered. Recommend NPO. Carafate. And continued PPI. (1) GI - IVF, tube feed plan postpyloric via weighted nasogastric tube that was placed during upper endoscopy. Nutrition consult to assist with achievement of goal. Tyra-Tom tear multiply will continue to monitor closely. Unfortunately the patient has pulled out moreover she has had fevers in the interim which is concerning for perforation AKA Boerhaave's for which CT chest abdomen pelvis with contrast is indicated. (2) SURGERY - status post upper endoscopy revealing BLEEDING Tyra-Tom tear with active extravasation for which multiple clips were placed with hemostasis achieved. Weighted nasogastric tube placed for enteral feeds, in setting of VERY large hiatal hernia could consider gastropexy with percutaneous endoscopic gastrostomy tube which would offer multiple benefits in this patient. Will reconsider following imaging today, see under infectious disease. In the meantime patient may benefit from TPN/PPN. (3) Renal/Lytes - lites within normal limits, TPN per nutrition, continue to monitor strict I's and O's. (4) Respiratory - O2 as necessary. Continue IS. (5) Heme - monitor H&H, transfuse packed cells as necessary. Consider Venofer For significant acute blood loss anemia. (6) Cardiovascular - per hospitalist service. (7) Infectious Diseease -agree with broad coverage empirically. Panculture. CT chest abdomen pelvis with oral contrast as well as IV contrast to evaluate for Boerhaave's and full-thickness perforation in the setting of Tyra-Tom tear. (8) PT/OT
[2019-09-26] MEDS ORDERED: IOVERSOL 320 50 ML VIAL PO ONE (13:30)
--- NOTE | 2019-09-26 13:55 | CT Report ---
PROCEDURE: CHEST W INDICATIONS: Fever. Tyra-rizzo tear. Hypoxia. CONTRAST: IV CONTRAST: Optiray 320 ml: 100 PO CONTRAST: Optiray 320 ml50 TECHNIQUE: After the administration of intravenous contrast, 5 mm thick sections acquired from the pulmonary api tamar to the posterior costophrenic angles. 7 mm thick coronal MIP reformats were acquired. For radia tion dose reduction, the following was used: automated exposure control, adjustment of mA and/or kV according to patient size. COMPARISON: CT abdomen pelvis 09/24/2019 FINDINGS: Image quality: Excellent. Lungs and pleura: New moderate-sized left and very small right pleural effusion and patchy alveolar consolidations at both lung bases. No acute air space opacities. No pleural effusions or pneumothora x. Central and peripheral airways are patent and normal in caliber. Mediastinum: Heart size is at the upper limits of normal. No pericardial effusion. A few minimally prominent mediastinal lymph nodes present centrally. No mediastinal or hilar adenopathy by size crite meliza. Thoracic aorta and central pulmonary arteries are normal in size. Esophagus is normal in caliber. A large hiatal hernia is present. This contains about 1/4-1/3 of the proximal stomach. No visible. Esophageal contrast extravasation. Bones and chest wall: No suspicious bony lesions. There is moderate thoracic scoliosis in the upper spine. No vertebral body compression fractures. No axillary or supraclavicular adenopathy by size c riteria. Thyroid gland is enlarged and demonstrates a few hypodense nodules in the left lobe along w ith a few coarse calcifications.. Abdomen: Anterior right lobe hepatic hypodensity. Visualized upper abdominal solid organs appear oth erwise normal. Upper abdominal bowel loops are normal in caliber. IMPRESSION: 1. No evidence of oral contrast extravasation into periesophageal soft tissues. 2. Large hiatal hernia containing 25-33% of the stomach. 3. Development of bibasilar consolidations and effusions, left greater than right. This may be due to volume overload/CHF, or potentially aspiration. 4. Mildly enlarged thyroid gland with left lobe nodular densities. Thyroid ultrasound could be perfor med on a routine basis if not previously evaluated. Reviewed by: Luz Garay MD on 09/26/2019 12:54 PM LUISITO Approved by: Luz Garay MD on 09/26/2019 12:54 PM AKMIRNA Station ID: [id number]
--- NOTE | 2019-09-26 14:04 | CT Report ---
PROCEDURE: Abdomen/Pelvis W INDICATIONS: GI bleed. Fever. CONTRAST: IV CONTRAST: Optiray 320 ml: 100 PO CONTRAST: Optiray 320 ml50 TECHNIQUE: After the administration of oral and intravenous contrast, 5 mm thick sections acquired from the diap hragms to the symphysis. 5 mm thick coronal and sagittal reformats were acquired. For radiation dos e reduction, the following was used: automated exposure control, adjustment of mA and/or kV accordin g to patient size. . COMPARISON: 09/24/2019 FINDINGS: Image quality: Excellent. ABDOMEN: Lung bases: Lung bases demonstrate bibasilar effusions, consolidations, large stomach containing hia smita hernia and enlarged heart as described in chest CT report. Solid organs: Liver and spleen are normal in size and enhancement. There is anterior subcapsular hy podensity in the liver, most likely a simple cyst versus focal fat deposition. Gallbladder is surgica lly absent. Biliary system is non dilated. Pancreas enhances normally. No adrenal nodules. The rig ht kidney has a normal size with slightly lobular cortex. The left kidney is atrophic, but demonstrat es symmetric uptake and excretion of contrast. There is dilatation of the left collecting system and prominent left ureter to the level of the urinary bladder. Peritoneum and bowel: There is extensive diverticular disease of the sigmoid colon. Increased solid stool is present in these segments which may be impacted and fairly large diverticula. There is wall thickening for short segments and portions of the sigmoid colon. Very subtle adjacent inflammatory ch anges are present. Trace fluid present dependently in the pelvis. No extraluminal gas. There is a moderate size hiatal hernia containing the proximal stomach. The distal stomach and small bowel appear normal. Nodes and vessels: No retroperitoneal or mesenteric adenopathy by size criteria. Aorta and inferior vena cava are normal in size. Miscellaneous: No ventral hernias. PELVIS: Genitourinary: Bladder wall thickness is normal. There is a left posterior a few small left posterior bladder wall diverticula. The uterus is surgically absent. Miscellaneous: Small fat-containing right inguinal hernia. No pelvic adenopathy.. Bones: No suspicious bony lesions. No vertebral body compression fractures. IMPRESSION: 1. There are multiple sigmoid diverticula, some of which appear large and impacted stool and demonstr ate wall thickening. This may represent acute on chronic diverticulitis in an early phase. 2. The degree of colonic impaction in this area has decreased slightly since the prior study. 3. Stable moderate-sized hiatal hernia. 4. Interval development of bibasilar effusions and consolidations. This could represent volume overlo ad or aspiration. Reviewed by: Luz Garay MD on 09/26/2019 1:03 PM [facility]IS[facility] Approved by: Luz Garay MD on 09/26/2019 1:03 PM AKMIRNA Station ID: [id number]
[2019-09-26] MEDS: metroNIDAZOLE 500 MG/100 ML 500 MG/100 ML BAG IV SCH (17:46)
[2019-09-26 18:39] LABS: HGB - HEMOGLOBIN 9.2 g/dL (12.0-16.0)
[2019-09-26] MEDS ORDERED: PPN (CLINIMIX E 4.25/5) 2,000 ML with MULTIVITAMIN 10 ML, TRACE ELEMENTS V CONC 1 ML IV SCH ×3 (19:00)
[2019-09-26] MEDS ORDERED: FAT EMULSION 20% 250 ML IV SCH (19:00)
[2019-09-27] MEDS: SODIUM CHLORIDE FLUSH 0.9% 10 ML SYRINGE IVP SCH ×3 (00:04→17:12)
[2019-09-27] MEDS: metroNIDAZOLE 500 MG/100 ML 500 MG/100 ML BAG IV SCH ×3 (01:34→18:44)
[2019-09-27] MEDS: SODIUM CHLORIDE FLUSH 0.9% 10 ML SYRINGE IVP PRN ×3 (01:34→11:13)
[2019-09-27] MEDS: ACETAMINOPHEN 325 MG TABLET PO PRN ×2 (04:01→14:45)
[2019-09-27 05:15] LABS: BASOPHILS % (AUTO) 0.3 %; EOSINOPHILS # (AUTO) 0.2 10^3/uL (0.0-0.7); EOSINOPHILS % (AUTO) 2.2 %; HGB - HEMOGLOBIN 9.4 g/dL (12.0-16.0); LYMPHOCYTES # (AUTO) 0.8 10^3/uL (1.5-3.5); LYMPHOCYTES % (AUTO) 7.5 %; MEAN CORPUSCULAR HEMOGLOBIN 29.4 pg (27.0-31.0); MEAN CORPUSCULAR HGB CONC 31.8 g/dL (32.0-36.0); MEAN CORPUSCULAR VOLUME 92.5 fL (81.0-99.0); MEAN PLATELET VOLUME 9.9 fL (7.9-10.8); MONOCYTES # (AUTO) 0.7 10^3/uL (0.0-1.0); MONOCYTES % (AUTO) 6.5 %; NEUTROPHILS % (AUTO) 82.7 %; PLT - PLATELET COUNT 229 10^3/uL (130-450); RED CELL DISTRIBUTION WIDTH 17.2 % (12.0-15.0); WHITE BLOOD COUNT 10.9 x10^3/uL (4.8-10.8)
[2019-09-27 05:31] LABS: CALCIUM 7.7 mg/dL (8.5-10.3); CREATININE 0.7 mg/dL (0.4-1.0); MAGNESIUM 2.1 mg/dL (1.7-2.8); PHOSPHORUS 2.8 mg/dL (2.5-4.6)
[2019-09-27] MEDS: SUCRALFATE 1 GM/10 ML UDC NG SCH ×2 (06:27→21:39)
[2019-09-27] MEDS: LEVOTHYROXINE 25 MCG TABLET NG SCH (06:27)
--- NOTE | 2019-09-27 07:17 | PROVIDER PROGRESS NOTE ---
Subjective - Prog Note Date Prog Note Date: 09/27/19 - Subjective Subjective: She reports feeling worse today than she did yesterday evening. She complains of discomfort all over her body. Reports no abdominal pain. No nausea or further episodes of emesis. Denies any chest pain or dyspnea. She does feels fatigued. Current Medications - Current Medications Current Medications: Active Medications Acetaminophen (Tylenol) 650 mg PO Q4HR PRN PRN Reason: Pain 1 to 4 Last Admin: 09/27/19 04:01 Dose: 650 mg Documented by: Docusate Sodium (Colace 100mg Capsule) 100 mg PO BID [facility] Last Admin: 09/26/19 22:42 Dose: Not Given Documented by: Ceftriaxone Sodium 2 gm/ (Sodium Chloride) 100 mls @ 200 mls/hr IV DAILY [facility] Last Infusion: 09/26/19 08:52 Dose: Infused Documented by: Multivitamins 10 ml/ Chromium/Copper/Manganese/Seleni/Zn 1 ml/ Amino Acids/Electrolytes/Dextrose 2,011 mls @ 83 mls/hr IV Q24H [facility]; Protocol Last Admin: 09/26/19 19:10 Dose: 83 mls/hr Documented by: Fat Emulsion Intravenous (Intralipid 20%) 250 mls @ 21 mls/hr IV Q24H [facility] Last Infusion: 09/27/19 07:08 Dose: Infused Documented by: Metronidazole (Flagyl 500 Mg/100 Ml) 500 mg in 100 mls @ 100 mls/hr IV Q8H [facility] Last Infusion: 09/27/19 02:36 Dose: Infused Documented by: Potassium Chloride (Potassium Chloride) 10 meq in 100 mls @ 100 mls/hr IV Q1H [facility] Stop: 09/27/19 11:59 Levothyroxine Sodium (Synthroid) 50 mcg NG QDAC [facility] Last Admin: 09/27/19 06:27 Dose: 50 mcg Documented by: Morphine Sulfate (Morphine (Carpuject)) 2 mg IVP Q2HR PRN PRN Reason: Pain 8 to 10 Ondansetron HCl (Zofran Odt) 4 mg TL Q6HR PRN PRN Reason: Nausea / Vomiting Ondansetron HCl (Zofran Inj) 4 mg IVP Q6HR PRN PRN Reason: Nausea / Vomiting Pantoprazole Sodium (Protonix) 40 mg IVP BID [facility] Last Admin: 09/26/19 21:32 Dose: 40 mg Documented by: Paroxetine HCl (Paxil) 20 mg NG DAILY [facility] Last Admin: 09/26/19 09:49 Dose: 20 mg Documented by: Polyethylene Glycol (Miralax) 17 gm NG BID [facility] Last Admin: 09/26/19 22:43 Dose: Not Given Documented by: Sodium Chloride (Normal Saline Flush 0.9%) 10 ml IVP PRN PRN PRN Reason: NEEDED PER PROVIDER ORDERS Last Admin: 09/27/19 01:34 Dose: 10 ml Documented by: Sodium Chloride (Normal Saline Flush 0.9%) 10 ml IVP 0100,0900,1700 [facility] Last Admin: 09/27/19 00:04 Dose: 10 ml Documented by: Sucralfate (Carafate) 1 gm NG 0700,1100,1600,2200 [facility] Last Admin: 09/27/19 06:27 Dose: 1 gm Documented by: Levothyroxine Sodium 50 mcg ORAL QDAC 10/07/17 Omeprazole [PriLOSEC] 20 mg ORAL DAILY 10/07/17 PARoxetine HCl [Paxil] 20 mg ORAL DAILY 10/07/17 Objective - Vital Signs/Intake & Output Reviewed Vital Signs: Yes Vital Signs: Vital Signs x48h Temp Pulse Resp BP Pulse Ox 09/27/19 04:02 37.2 C 74 18 114/38 L 94 09/27/19 00:01 37 C 76 16 105/44 L 96 Intake & Output: Intake & Output 09/24/19 09/25/19 09/26/19 09/27/19 23:59 23:59 23:59 23:59 Intake Total 1000 4338.333 3349.170 350 Output Total 550 450 Balance 1000 3788.333 2899.170 350 - Objective General Appearance: positive: No acute distress, Alert Eyes Bilateral: positive: Normal inspection, Conjunctivae nml ENT: positive: ENT inspection nml Neck: positive: Nml inspection Respiratory: positive: No respiratory distress, Other (Diminished breath sounds in the bases). negative: Wheezes, Rales Cardiovascular: positive: Regular rate & rhythm. negative: Tachycardia, Systolic murmur Abdomen: positive: Nml bowel sounds, No distention, Tenderness (She does have mild tenderness in the epigastric region. No left lower quadrant tenderness). negative: Non-tender, Guarding, Rebound, Abnml bowel sounds Skin: positive: Warm, Dry. negative: Pallor Extremities: positive: Full ROM, No pedal edema Neurologic/Psychiatric: positive: Oriented x3, Motor nml. negative: Disoriented to person, Disoriented to place, Disoriented to time - Lab Results Fish Bones: 09/27/19 04:50 09/27/19 04:50 Other Labs: Lab Results x24hrs 09/27/19 09/27/19 09/27/19 Range/Units 04:50 04:50 04:50 WBC 10.9 H (4.8-10.8) x10^3/uL RBC 3.20 L (4.20-5.40) 10^6/uL Hgb 9.4 L (12.0-16.0) g/dL Hct 29.6 L (37.0-47.0) % MCV 92.5 (81.0-99.0) fL MCH 29.4 (27.0-31.0) pg MCHC 31.8 L (32.0-36.0) g/dL RDW 17.2 H (12.0-15.0) % Plt Count 229 (130-450) 10^3/uL MPV 9.9 (7.9-10.8) fL Neut # (Auto) 9.0 H (1.5-6.6) 10^3/uL Lymph # (Auto) 0.8 L (1.5-3.5) 10^3/uL [place] # (Auto) 0.7 (0.0-1.0) 10^3/uL Eos # (Auto) 0.2 (0.0-0.7) 10^3/uL Baso # (Auto) 0.0 (0.0-0.1) 10^3/uL Absolute Nucleated RBC 0.00 x10^3/uL Nucleated RBC % 0.0 /100WBC Sodium 136 (135-145) mmol/L Potassium 3.3 L (3.5-5.0) mmol/L Chloride 105 (101-111) mmol/L Carbon Dioxide 27 (21-32) mmol/L Anion Gap 4.0 L (6-13) BUN 14 (6-20) mg/dL Creatinine 0.7 (0.4-1.0) mg/dL Estimated GFR (MDRD) 80 L (>89) Glucose 118 H (70-100) mg/dL POC Whole Bld Glucose (70 - 100) mg/dL Calcium 7.7 L (8.5-10.3) mg/dL Phosphorus 2.8 (2.5-4.6) mg/dL Magnesium 2.1 (1.7-2.8) mg/dL Prealbumin 13 L (18-45) mg/dL Triglycerides 163 H ( - 149) mg/dL Blood Type Antibody Screen Crossmatch IS Only 09/26/19 09/26/19 09/26/19 Range/Units 23:59 18:32 17:18 WBC (4.8-10.8) x10^3/uL RBC (4.20-5.40) 10^6/uL Hgb 9.2 L (12.0-16.0) g/dL Hct 28.1 L (37.0-47.0) % MCV (81.0-99.0) fL MCH (27.0-31.0) pg MCHC (32.0-36.0) g/dL RDW (12.0-15.0) % Plt Count (130-450) 10^3/uL MPV (7.9-10.8) fL Neut # (Auto) (1.5-6.6) 10^3/uL Lymph # (Auto) (1.5-3.5) 10^3/uL [place] # (Auto) (0.0-1.0) 10^3/uL Eos # (Auto) (0.0-0.7) 10^3/uL Baso # (Auto) (0.0-0.1) 10^3/uL Absolute Nucleated RBC x10^3/uL Nucleated RBC % /100WBC Sodium (135-145) mmol/L Potassium (3.5-5.0) mmol/L Chloride (101-111) mmol/L Carbon Dioxide (21-32) mmol/L Anion Gap (6-13) BUN (6-20) mg/dL Creatinine (0.4-1.0) mg/dL Estimated GFR (MDRD) (>89) Glucose (70-100) mg/dL POC Whole Bld Glucose 105 H 83 (70 - 100) mg/dL Calcium (8.5-10.3) mg/dL Phosphorus (2.5-4.6) mg/dL Magnesium (1.7-2.8) mg/dL Prealbumin (18-45) mg/dL Triglycerides ( - 149) mg/dL Blood Type Antibody Screen Crossmatch IS Only 09/24/19 Range/Units 20:40 WBC (4.8-10.8) x10^3/uL RBC (4.20-5.40) 10^6/uL Hgb (12.0-16.0) g/dL Hct (37.0-47.0) % MCV (81.0-99.0) fL MCH (27.0-31.0) pg MCHC (32.0-36.0) g/dL RDW (12.0-15.0) % Plt Count (130-450) 10^3/uL MPV (7.9-10.8) fL Neut # (Auto) (1.5-6.6) 10^3/uL Lymph # (Auto) (1.5-3.5) 10^3/uL [place] # (Auto) (0.0-1.0) 10^3/uL Eos # (Auto) (0.0-0.7) 10^3/uL Baso # (Auto) (0.0-0.1) 10^3/uL Absolute Nucleated RBC x10^3/uL Nucleated RBC % /100WBC Sodium (135-145) mmol/L Potassium (3.5-5.0) mmol/L Chloride (101-111) mmol/L Carbon Dioxide (21-32) mmol/L Anion Gap (6-13) BUN (6-20) mg/dL Creatinine (0.4-1.0) mg/dL Estimated GFR (MDRD) (>89) Glucose (70-100) mg/dL POC Whole Bld Glucose (70 - 100) mg/dL Calcium (8.5-10.3) mg/dL Phosphorus (2.5-4.6) mg/dL Magnesium (1.7-2.8) mg/dL Prealbumin (18-45) mg/dL Triglycerides ( - 149) mg/dL Blood Type O POSITIVE Antibody Screen NEGATIVE Crossmatch IS Only See Detail ABX Reporting Has patient been on IV antibiotics over the past 48 hours?: Yes Assessment/Plan - Problem List (1) Tyra-Tom tear Impression: This was evident on EGD. CT of the chest yesterday did not suggest perforation. Her hemoglobin has stabilized since transfusion yesterday and there is no fu rther evidence of bleeding at this time. She does remain n.p.o. and has been started on PPN for nutrition. Discussed with general surgery today and given her overall improvement, plan will be for Dobbhoff placement start her on tube feeds and we will hold off on a PEG tube for the time being. We will continue her on Protonix IV twice daily. Continue Carafate. (2) Acute diverticulitis Impression: CT of the abdomen pelvis with IV contrast yesterday was concerning for acute on chronic diverticulitis. Potentially be the source of her fever and leukocyt osis. She has been started on ceftriaxone and Flagyl and has now been afebrile for almost 24 hours and her white count is significantly improved today. She still remains n.p.o. given the mattery twice tear. We will continue IV antibiotics for another day and if she clinically continues to improve, we will look to transition to oral antibiotics tomorrow. (3) Acute blood loss anemia Impression: Her hemoglobin appears to be stabilizing since transfusion yesterday. She responded appropriately to 2 units of packed red blood cell and hemoglobin is slightly increased this morning. There has been no further evidence of significant bleeding. We will recheck her hemoglobin once again this afternoon if and if this is stable then we will be checking it daily. Continue with SCDs for DVT prophylaxis. (4) Fever Impression: She was febrile yesterday and her white count had increased to 20,000. Imaging yesterday including chest x-ray and CT of the chest was concerning for possible aspiration or pulmonary edema. CT the abdomen pelvis was suggestive of acute on chronic diverticulitis. She was started empirically on ceftriaxone and Flagyl and has since been afebrile and white count is significantly improved today. We will continue antibiotics as mentioned above for diverticulitis. Continue to monitor for fevers and trend her white count. (5) Depression with anxiety Impression: Stable. Continue home medications. (6) Hypothyroid Impression: Stable. Continue Synthroid. Qualifiers: Hypothyroidism type: unspecified Qualified Code(s): E03.9 - Hypothyroidism, unspecified
[2019-09-27] MEDS: POTASSIUM CHLOR 10 MEQ/100 ML 10 MEQ/100 ML BAG IV SCH ×6 (08:27→21:01)
[2019-09-27] MEDS: PANTOPRAZOLE 40 MG VIAL IVP SCH ×2 (08:29→21:38)
[2019-09-27] MEDS: DOCUSATE SODIUM 100 MG CAPSULE PO SCH (08:43)
[2019-09-27] MEDS: PARoxetine 10 MG TABLET NG SCH (08:43)
[2019-09-27] MEDS: polyethylene glycoL 3350 17 GM PACKET NG SCH ×2 (08:43→21:39)
[2019-09-27] MEDS: cefTRIAXone 2 GM in SODIUM CHLORIDE 0.9% MINIBAG 100 ML IV SCH (08:52)
[2019-09-27] MEDS: MORPHINE 2 MG/ML CARPUJECT IVP PRN ×3 (11:12→23:02)
[2019-09-27] MEDS: SUCRALFATE 1 GM/10 ML UDC PO SCH ×2 (11:13→17:10)
--- NOTE | 2019-09-27 12:55 | PROVIDER PROGRESS NOTE ---
Subjective - General Admit Date: 09/25/19 Procedure Date: 09/25/19 (Postoperative day #2) Post Op Days: 3 Procedure Performed: Status post upper endoscopy revealing Tyra-Tom tear - Review of Systems HEENT: positive: No symptoms Objective - Patient Data Vital Signs: Vital Signs x48h Temp Pulse Resp BP Pulse Ox 09/27/19 12:23 36.5 C 71 20 120/43 L 92 09/27/19 08:10 37.2 C 66 16 116/42 L Weight: Weight 09/25/19 09/26/19 09/27/19 23:59 23:59 23:59 Weight (kg) 58.5 kg 58.5 kg 61 kg Intake & Output: Intake and Output Totals x24h 09/25/19 09/26/19 09/27/19 23:59 23:59 23:59 Intake Total 4338.333 3349.170 502 Output Total 550 450 Balance 3788.333 2899.170 502 - Lab Results Lab Results: 09/28/19 04:30 09/28/19 04:30 Other Lab Results: Lab Results x24hrs 09/27/19 09/27/19 09/27/19 Range/Units 12:08 04:50 04:50 WBC (4.8-10.8) x10^3/uL RBC (4.20-5.40) 10^6/uL Hgb (12.0-16.0) g/dL Hct (37.0-47.0) % MCV (81.0-99.0) fL MCH (27.0-31.0) pg MCHC (32.0-36.0) g/dL RDW (12.0-15.0) % Plt Count (130-450) 10^3/uL MPV (7.9-10.8) fL Neut # (Auto) (1.5-6.6) 10^3/uL Lymph # (Auto) (1.5-3.5) 10^3/uL Garvin # (Auto) (0.0-1.0) 10^3/uL Eos # (Auto) (0.0-0.7) 10^3/uL Baso # (Auto) (0.0-0.1) 10^3/uL Absolute Nucleated RBC x10^3/uL Nucleated RBC % /100WBC Sodium 136 (135-145) mmol/L Potassium 3.3 L (3.5-5.0) mmol/L Chloride 105 (101-111) mmol/L Carbon Dioxide 27 (21-32) mmol/L Anion Gap 4.0 L (6-13) BUN 14 (6-20) mg/dL Creatinine 0.7 (0.4-1.0) mg/dL Estimated GFR (MDRD) 80 L (>89) Glucose 118 H (70-100) mg/dL POC Whole Bld Glucose 121 H (70 - 100) mg/dL Calcium 7.7 L (8.5-10.3) mg/dL Phosphorus 2.8 (2.5-4.6) mg/dL Magnesium 2.1 (1.7-2.8) mg/dL B-Natriuretic Peptide (5-100) pg/mL Prealbumin 13 L (18-45) mg/dL Triglycerides 163 H ( - 149) mg/dL Blood Type Antibody Screen Crossmatch IS Only 09/27/19 09/27/19 09/26/19 Range/Units 04:50 04:30 23:59 WBC 10.9 H (4.8-10.8) x10^3/uL RBC 3.20 L (4.20-5.40) 10^6/uL Hgb 9.4 L (12.0-16.0) g/dL Hct 29.6 L (37.0-47.0) % MCV 92.5 (81.0-99.0) fL MCH 29.4 (27.0-31.0) pg MCHC 31.8 L (32.0-36.0) g/dL RDW 17.2 H (12.0-15.0) % Plt Count 229 (130-450) 10^3/uL MPV 9.9 (7.9-10.8) fL Neut # (Auto) 9.0 H (1.5-6.6) 10^3/uL Lymph # (Auto) 0.8 L (1.5-3.5) 10^3/uL Garvin # (Auto) 0.7 (0.0-1.0) 10^3/uL Eos # (Auto) 0.2 (0.0-0.7) 10^3/uL Baso # (Auto) 0.0 (0.0-0.1) 10^3/uL Absolute Nucleated RBC 0.00 x10^3/uL Nucleated RBC % 0.0 /100WBC Sodium (135-145) mmol/L Potassium (3.5-5.0) mmol/L Chloride (101-111) mmol/L Carbon Dioxide (21-32) mmol/L Anion Gap (6-13) BUN (6-20) mg/dL Creatinine (0.4-1.0) mg/dL Estimated GFR (MDRD) (>89) Glucose (70-100) mg/dL POC Whole Bld Glucose 105 H (70 - 100) mg/dL Calcium (8.5-10.3) mg/dL Phosphorus (2.5-4.6) mg/dL Magnesium (1.7-2.8) mg/dL B-Natriuretic Peptide 455 H (5-100) pg/mL Prealbumin (18-45) mg/dL Triglycerides ( - 149) mg/dL Blood Type Antibody Screen Crossmatch IS Only 09/26/19 09/26/19 09/24/19 Range/Units 18:32 17:18 20:40 WBC (4.8-10.8) x10^3/uL RBC (4.20-5.40) 10^6/uL Hgb 9.2 L (12.0-16.0) g/dL Hct 28.1 L (37.0-47.0) % MCV (81.0-99.0) fL MCH (27.0-31.0) pg MCHC (32.0-36.0) g/dL RDW (12.0-15.0) % Plt Count (130-450) 10^3/uL MPV (7.9-10.8) fL Neut # (Auto) (1.5-6.6) 10^3/uL Lymph # (Auto) (1.5-3.5) 10^3/uL Garvin # (Auto) (0.0-1.0) 10^3/uL Eos # (Auto) (0.0-0.7) 10^3/uL Baso # (Auto) (0.0-0.1) 10^3/uL Absolute Nucleated RBC x10^3/uL Nucleated RBC % /100WBC Sodium (135-145) mmol/L Potassium (3.5-5.0) mmol/L Chloride (101-111) mmol/L Carbon Dioxide (21-32) mmol/L Anion Gap (6-13) BUN (6-20) mg/dL Creatinine (0.4-1.0) mg/dL Estimated GFR (MDRD) (>89) Glucose (70-100) mg/dL POC Whole Bld Glucose 83 (70 - 100) mg/dL Calcium (8.5-10.3) mg/dL Phosphorus (2.5-4.6) mg/dL Magnesium (1.7-2.8) mg/dL B-Natriuretic Peptide (5-100) pg/mL Prealbumin (18-45) mg/dL Triglycerides ( - 149) mg/dL Blood Type O POSITIVE Antibody Screen NEGATIVE Crossmatch IS Only See Detail - Current Medications Current Medications: Current Medications Generic Name Dose Route Start Last Admin Trade Name Freq PRN Reason Stop Dose Admin Acetaminophen 650 mg 09/24/19 22:42 09/27/19 04:01 Tylenol PO 650 mg Q4HR PRN Administration Pain 1 to 4 Docusate Sodium 100 mg 09/25/19 21:00 09/27/19 08:43 Colace 100mg Capsule PO Not Given BID [facility] Ceftriaxone Sodium 2 gm/ 100 mls @ 200 mls/hr 09/26/19 07:21 09/27/19 10:50 Sodium Chloride IV Infused DAILY [facility] Multivitamins 10 ml/ Chromium/ 2,011 mls @ 83 mls/hr 09/26/19 19:00 09/26/19 19:10 Copper/Manganese/Seleni/Zn 1 IV 83 mls/hr ml/ Amino Acids/Electrolytes/ Q24H [facility] Administration Dextrose Protocol Fat Emulsion Intravenous 250 mls @ 21 mls/hr 09/26/19 19:00 09/27/19 07:08 Intralipid 20% IV Infused Q24H [facility] Metronidazole 500 mg in 100 mls @ 100 mls/hr 09/26/19 18:00 09/27/19 11:14 Flagyl 500 Mg/100 Ml IV 100 mls/hr Q8H [facility] Administration Morphine Sulfate 2 mg 09/24/19 22:42 09/27/19 11:12 Morphine (Carpuject) IVP 2 mg Q2HR PRN Administration Pain 8 to 10 Pantoprazole Sodium 40 mg 09/25/19 21:00 09/27/19 08:29 Protonix IVP 40 mg BID [facility] Administration Paroxetine HCl 20 mg 09/26/19 09:00 09/27/19 08:43 Paxil NG Not Given DAILY [facility] Polyethylene Glycol 17 gm 09/25/19 21:00 09/27/19 08:43 Miralax NG Not Given BID [facility] Sodium Chloride 10 ml 09/24/19 22:42 09/27/19 11:13 Normal Saline Flush 0.9% IVP 10 ml PRN PRN Administration NEEDED PER PROVIDER ORDERS Sodium Chloride 10 ml 09/25/19 01:00 09/27/19 08:31 Normal Saline Flush 0.9% IVP 10 ml 0100,0900,1700 [facility] Administration Sucralfate 1 gm 09/27/19 11:00 09/27/19 11:13 Carafate PO 1 gm 0700,1100,1600,2200 [facility] Administration - Physical Exam General Appearance: positive: No acute distress Eyes Bilateral: positive: Normal inspection, PERRL, EOMI Respiratory: negative: Wheezes, Rales, Rhonchi Cardiovascular: positive: Regular rate & rhythm Abdomen: positive: Other (Abdomen soft nontender nondistended no rebound no guarding.) Impression/Plan - Problem List Problem List: Postoperative day #2 status post upper endoscopy with findings as per EMR. Tyra-Tom tear with significant blood loss anemia. Multiply transfused. Weighted gastric tube placed post-pyloric during upper endoscopy. Patient had pulled out tube unfortunately. Discussed with hospitalist service starting TPN. 84-year-old female with hiatal hernia with significant upper gastrointestinal bleed secondary to Tyra-Tom tear. Multiply transfused. Post-pyloric weighted feeding tube placed which was self discontinued by patient. Leukocytosis, with fever however, in spite of concern for evolution of Tyra- Tom tear, Boerhaave's within differential, CT chest abdomen pelvis revealed no significant findings. - Replace weight feeding tube. - tube feeds. - PPI, therapeutic. - May consider PEG depending on progress. - Transfuse as necessary. Venofer as needed. - Continue to follow with Hospitalist service. Greatly appreciate their allowing us to participate with them in the care of this patient.
--- NOTE | 2019-09-27 20:21 | PROCEDURE REPORT ---
Hospitalist Procedure Note - Procedure Note Procedure Note: Explained dobhoff insertion procedure to patient, patient agreed to procedure. Donned PPE, placed patient in upright sitting position, lubricated distal end of dobhoff and inserted it in the patient's left nare approximately 10-15cm when resistance met. At that point gave patient water to sip to assist with insertion, dobhoff easily advanced while patient was sipping water. Advanced dobhoff until the 60cm wayne. Attempted to visualize dobhoff in the back of patient's throat however due to anatomy was unable to do so. Chest x-ray shows coiling of tube in hiatal hernia with distal tip pointing inferiorly. Spoke with MD Naik, agreed to leave it in in hopes it migrates in to stomach, will repeat chest x-ray in the morning. Tube secured with adhesive apparatus. Pt tolerated procedure well.
--- NOTE | 2019-09-27 20:50 | XRAY Report ---
PROCEDURE: Abdomen 1 View X-Ray INDICATIONS: NG tube placement TECHNIQUE: 1 view of the abdomen were acquired. COMPARISON: CT chest 09/26/2019 FINDINGS: Enteric tube is coiled within the patient's hiatal hernia, with-weighted distal tip projecting inferi elpidio. IMPRESSION: Enteric tube coiled within the patient's hiatal hernia, with weighted distal tip project ing inferiorly. Reviewed by: Gonzalo Bagley MD on 09/27/2019 8:48 PM PDT Approved by: Gonzalo Bagley MD on 09/27/2019 8:48 PM PDT Station ID: [id number]
[2019-09-27] MEDS: POTASSIUM CHLORIDE 20 MEQ/15 ML UDC NG SCH (22:00)
[2019-09-28] MEDS: MORPHINE 2 MG/ML CARPUJECT IVP PRN ×4 (01:09→18:55)
[2019-09-28] MEDS: SODIUM CHLORIDE FLUSH 0.9% 10 ML SYRINGE IVP SCH ×3 (01:25→18:06)
[2019-09-28] MEDS: metroNIDAZOLE 500 MG/100 ML 500 MG/100 ML BAG IV SCH ×3 (01:25→18:21)
[2019-09-28] MEDS: SODIUM CHLORIDE FLUSH 0.9% 10 ML SYRINGE IVP PRN ×5 (01:25→18:55)
[2019-09-28] MEDS: ACETAMINOPHEN 325 MG TABLET PO PRN (02:42)
[2019-09-28] MEDS ORDERED: ACETAMINOPHEN 160 MG/5 ML SUSP UDC PO PRN (02:51)
[2019-09-28 04:56] LABS: BASOPHILS % (AUTO) 0.4 %; EOSINOPHILS # (AUTO) 0.4 10^3/uL (0.0-0.7); HGB - HEMOGLOBIN 9.7 g/dL (12.0-16.0); LYMPHOCYTES # (AUTO) 0.7 10^3/uL (1.5-3.5); LYMPHOCYTES % (AUTO) 8.6 %; MEAN CORPUSCULAR HEMOGLOBIN 28.8 pg (27.0-31.0); MEAN CORPUSCULAR HGB CONC 30.7 g/dL (32.0-36.0); MEAN CORPUSCULAR VOLUME 93.8 fL (81.0-99.0); MEAN PLATELET VOLUME 9.8 fL (7.9-10.8); MONOCYTES # (AUTO) 0.6 10^3/uL (0.0-1.0); MONOCYTES % (AUTO) 7.2 %; NEUTROPHILS # (AUTO) 6.7 10^3/uL (1.5-6.6); NEUTROPHILS % (AUTO) 78.1 %; PLT - PLATELET COUNT 266 10^3/uL (130-450); RED BLOOD COUNT 3.37 10^6/uL (4.20-5.40); RED CELL DISTRIBUTION WIDTH 17.4 % (12.0-15.0); WHITE BLOOD COUNT 8.5 x10^3/uL (4.8-10.8)
[2019-09-28 05:06] LABS: CALCIUM 7.8 mg/dL (8.5-10.3); CREATININE 0.7 mg/dL (0.4-1.0); MAGNESIUM 2.1 mg/dL (1.7-2.8); PHOSPHORUS 2.6 mg/dL (2.5-4.6)
[2019-09-28] MEDS: LEVOTHYROXINE 25 MCG TABLET NG SCH (06:52)
[2019-09-28] MEDS: SUCRALFATE 1 GM/10 ML UDC NG SCH ×4 (06:53→22:46)
--- NOTE | 2019-09-28 07:15 | PROVIDER PROGRESS NOTE ---
Subjective - Prog Note Date Prog Note Date: 09/28/19 - Subjective Subjective: She still complains of body aches but reports this has improved. A Dobbhoff was placed yesterday but unfortunately is coiled due to her hiatal hernia. The patient would like Dobbhoff out if possible. She reports little nausea but no vomiting. Denies any chest pain or dyspnea. Current Medications - Current Medications Current Medications: Active Medications Acetaminophen (Tylenol) 650 mg PO Q4H PRN PRN Reason: PAIN 1-4 Last Admin: 09/28/19 03:01 Dose: 650 mg Documented by: Ceftriaxone Sodium 2 gm/ (Sodium Chloride) 100 mls @ 200 mls/hr IV DAILY [facility] Last Infusion: 09/27/19 10:50 Dose: Infused Documented by: Metronidazole (Flagyl 500 Mg/100 Ml) 500 mg in 100 mls @ 100 mls/hr IV Q8H [facility] Last Infusion: 09/28/19 02:25 Dose: Infused Documented by: Levothyroxine Sodium (Synthroid) 50 mcg NG 0600 [facility] Last Admin: 09/28/19 06:52 Dose: 50 mcg Documented by: Morphine Sulfate (Morphine (Carpuject)) 2 mg IVP Q2HR PRN PRN Reason: Pain 8 to 10 Last Admin: 09/28/19 01:09 Dose: 2 mg Documented by: Ondansetron HCl (Zofran Odt) 4 mg TL Q6HR PRN PRN Reason: Nausea / Vomiting Ondansetron HCl (Zofran Inj) 4 mg IVP Q6HR PRN PRN Reason: Nausea / Vomiting Pantoprazole Sodium (Protonix) 40 mg IVP BID [facility] Last Admin: 09/27/19 21:38 Dose: 40 mg Documented by: Paroxetine HCl (Paxil) 20 mg NG DAILY [facility] Last Admin: 09/27/19 08:43 Dose: Not Given Documented by: Polyethylene Glycol (Miralax) 17 gm NG BID [facility] Last Admin: 09/27/19 21:39 Dose: Not Given Documented by: Potassium Chloride () 20 meq NG DAILY [facility] Last Admin: 09/27/19 22:00 Dose: 20 meq Documented by: Sodium Chloride (Normal Saline Flush 0.9%) 10 ml IVP PRN PRN PRN Reason: NEEDED PER PROVIDER ORDERS Last Admin: 08/10/20 01:25 Dose: 10 ml Documented by: Sodium Chloride (Normal Saline Flush 0.9%) 10 ml IVP 0100,0900,1700 [facility] Last Admin: 09/28/19 01:25 Dose: 10 ml Documented by: Sucralfate (Carafate) 1 gm NG 0700,1100,1600,2200 [facility] Last Admin: 09/28/19 06:53 Dose: 1 gm Documented by: Levothyroxine Sodium 50 mcg ORAL [facility]DAC 10/07/17 Omeprazole [PriLOSEC] 20 mg ORAL DAILY 10/07/17 PARoxetine HCl [Paxil] 20 mg ORAL DAILY 10/07/17 Objective - Vital Signs/Intake & Output Reviewed Vital Signs: Yes Vital Signs: Vital Signs x48h Temp Pulse Resp BP Pulse Ox 09/28/19 04:38 36.2 C L 70 16 114/46 L 92 09/27/19 23:44 37.5 C 72 16 114/45 L 92 Intake & Output: Intake & Output 09/25/19 09/26/19 09/27/19 09/28/19 23:59 23:59 23:59 23:59 Intake Total 4338.333 3349.170 2665.33 100 Output Total 550 450 Balance 3788.333 2899.170 2665.33 100 - Objective General Appearance: positive: No acute distress, Alert Eyes Bilateral: positive: Normal inspection, Conjunctivae nml ENT: positive: ENT inspection nml, Other (Dobhoff in place.) Neck: positive: Nml inspection Respiratory: positive: No respiratory distress, Other (Diminished in the bases.). negative: Wheezes, Rales Cardiovascular: positive: Regular rate & rhythm. negative: Irregularly irregular, Tachycardia, Bradycardia, Systolic murmur Abdomen: positive: Non-tender, No distention. negative: Tenderness, Guarding, Rebound Skin: positive: Warm, Dry Extremities: positive: Full ROM, No pedal edema Neurologic/Psychiatric: positive: Oriented x3, Motor nml. negative: Disoriented to person, Disoriented to place, Disoriented to time - Lab Results Fish Bones: 09/28/19 04:30 09/28/19 04:30 Other Labs: Lab Results x24hrs 09/28/19 09/28/19 09/28/19 Range/Units 05:52 04:30 04:30 WBC 8.5 (4.8-10.8) x10^3/uL RBC 3.37 L (4.20-5.40) 10^6/uL Hgb 9.7 L (12.0-16.0) g/dL Hct 31.6 L (37.0-47.0) % MCV 93.8 (81.0-99.0) fL MCH 28.8 (27.0-31.0) pg MCHC 30.7 L (32.0-36.0) g/dL RDW 17.4 H (12.0-15.0) % Plt Count 266 (130-450) 10^3/uL MPV 9.8 (7.9-10.8) fL Neut # (Auto) 6.7 H (1.5-6.6) 10^3/uL Lymph # (Auto) 0.7 L (1.5-3.5) 10^3/uL Hitchcock # (Auto) 0.6 (0.0-1.0) 10^3/uL Eos # (Auto) 0.4 (0.0-0.7) 10^3/uL Baso # (Auto) 0.0 (0.0-0.1) 10^3/uL Absolute Nucleated RBC 0.00 x10^3/uL Nucleated RBC % 0.0 /100WBC Sodium 138 (135-145) mmol/L Potassium 3.5 (3.5-5.0) mmol/L Chloride 106 (101-111) mmol/L Carbon Dioxide 24 (21-32) mmol/L Anion Gap 8.0 (6-13) BUN 12 (6-20) mg/dL Creatinine 0.7 (0.4-1.0) mg/dL Estimated GFR (MDRD) 80 L (>89) Glucose 96 (70-100) mg/dL POC Whole Bld Glucose 75 (70 - 100) mg/dL Calcium 7.8 L (8.5-10.3) mg/dL Phosphorus 2.6 (2.5-4.6) mg/dL Magnesium 2.1 (1.7-2.8) mg/dL Total Creatine Kinase (22-269) IU/L B-Natriuretic Peptide (5-100) pg/mL 09/27/19 09/27/19 09/27/19 Range/Units 23:39 17:57 14:00 WBC (4.8-10.8) x10^3/uL RBC (4.20-5.40) 10^6/uL Hgb (12.0-16.0) g/dL Hct (37.0-47.0) % MCV (81.0-99.0) fL MCH (27.0-31.0) pg MCHC (32.0-36.0) g/dL RDW (12.0-15.0) % Plt Count (130-450) 10^3/uL MPV (7.9-10.8) fL Neut # (Auto) (1.5-6.6) 10^3/uL Lymph # (Auto) (1.5-3.5) 10^3/uL Hitchcock # (Auto) (0.0-1.0) 10^3/uL Eos # (Auto) (0.0-0.7) 10^3/uL Baso # (Auto) (0.0-0.1) 10^3/uL Absolute Nucleated RBC x10^3/uL Nucleated RBC % /100WBC Sodium (135-145) mmol/L Potassium (3.5-5.0) mmol/L Chloride (101-111) mmol/L Carbon Dioxide (21-32) mmol/L Anion Gap (6-13) BUN (6-20) mg/dL Creatinine (0.4-1.0) mg/dL Estimated GFR (MDRD) (>89) Glucose (70-100) mg/dL POC Whole Bld Glucose 85 88 (70 - 100) mg/dL Calcium (8.5-10.3) mg/dL Phosphorus (2.5-4.6) mg/dL Magnesium (1.7-2.8) mg/dL Total Creatine Kinase 44 (22-269) IU/L B-Natriuretic Peptide (5-100) pg/mL 09/27/19 09/27/19 Range/Units 12:08 04:30 WBC (4.8-10.8) x10^3/uL RBC (4.20-5.40) 10^6/uL Hgb (12.0-16.0) g/dL Hct (37.0-47.0) % MCV (81.0-99.0) fL MCH (27.0-31.0) pg MCHC (32.0-36.0) g/dL RDW (12.0-15.0) % Plt Count (130-450) 10^3/uL MPV (7.9-10.8) fL Neut # (Auto) (1.5-6.6) 10^3/uL Lymph # (Auto) (1.5-3.5) 10^3/uL Hitchcock # (Auto) (0.0-1.0) 10^3/uL Eos # (Auto) (0.0-0.7) 10^3/uL Baso # (Auto) (0.0-0.1) 10^3/uL Absolute Nucleated RBC x10^3/uL Nucleated RBC % /100WBC Sodium (135-145) mmol/L Potassium (3.5-5.0) mmol/L Chloride (101-111) mmol/L Carbon Dioxide (21-32) mmol/L Anion Gap (6-13) BUN (6-20) mg/dL Creatinine (0.4-1.0) mg/dL Estimated GFR (MDRD) (>89) Glucose (70-100) mg/dL POC Whole Bld Glucose 121 H (70 - 100) mg/dL Calcium (8.5-10.3) mg/dL Phosphorus (2.5-4.6) mg/dL Magnesium (1.7-2.8) mg/dL Total Creatine Kinase (22-269) IU/L B-Natriuretic Peptide 455 H (5-100) pg/mL ABX Reporting Has patient been on IV antibiotics over the past 48 hours?: Yes Assessment/Plan - Problem List (1) Tyra-Tom tear Impression: This was the cause of her acute blood loss anemia and was evident on endoscopy and she is status post clipping. CT of the chest was negative for perforation. Her hemoglobin has now been stable over the past 48 hours with no further evidence of bleeding. She remains n.p.o. per general surgery and is receiving tube feeds via a Dobbhoff. We will continue her on Protonix 40 mg IV twice daily. Will discuss with general surgery regarding how long she will require tube feeds for before we can potentially start her on a clear liquid diet. (2) Fever Impression: She has not been afebrile for over 24 hours and her white count is now within normal limits. This may have potentially been secondary to diverticulitis although this could have been a febrile nonhemolytic transfusion reaction. Except for diverticulitis, there has been no other obvious source of infection. We will continue antibiotics for the presumed diverticulitis. (3) Acute diverticulitis Impression: This may have potentially been the cause of her fever and leukocytosis. This was evident on the CT of the abdomen pelvis performed on September 25. Clinically, she appears to be improving. We will keep her on ceftriaxone and Flagyl IV with today being day 3 given she is n.p.o. except for tube feeds and meds via Dobbhoff. We will transition her to oral Augmentin once she is consistently taking p.o. (4) Acute blood loss anemia Impression: Improving and stable. She has required 3 units of packed red blood cells during this hospitalization but her hemoglobin has now appear to stabilize over the past 48 hours with no further evidence of bleeding. This was likely due to a Tyra-Tom tear. We will continue to check daily CBCs while she is hospitalized. (5) Depression with anxiety Impression: Stable. We are continuing her home medications. (6) Hypothyroid Impression: Stable. Continue home Synthroid. Qualifiers: Hypothyroidism type: unspecified Qualified Code(s): E03.9 - Hypothyroidism, unspecified
[2019-09-28] MEDS ORDERED: KETAMINE 500 MG/10 ML VIAL IVP ONE (08:35)
[2019-09-28] MEDS ORDERED: LIDOCAINE-MPF 2% 5 ML VIAL IM ONE (08:35)
[2019-09-28] MEDS ORDERED: PROPOFOL 200 MG/20 ML VIAL IVP ONE (08:35)
[2019-09-28] MEDS: cefTRIAXone 2 GM in SODIUM CHLORIDE 0.9% MINIBAG 100 ML IV SCH (08:49)
[2019-09-28] MEDS: PANTOPRAZOLE 40 MG VIAL IVP SCH ×2 (08:49→22:47)
[2019-09-28] MEDS: polyethylene glycoL 3350 17 GM PACKET NG SCH ×2 (08:50→22:48)
[2019-09-28] MEDS: POTASSIUM CHLORIDE 20 MEQ/15 ML UDC NG SCH (08:50)
[2019-09-28] MEDS: PARoxetine 10 MG TABLET NG SCH (08:51)
--- NOTE | 2019-09-28 11:16 | XRAY Report ---
PROCEDURE: Abdomen 1 View X-Ray INDICATIONS: to see if NG has moved TECHNIQUE: 1 view of the abdomen were acquired. COMPARISON: Prior CT scanning 09/26/2019 and abdominal plain films imaging 09/27/2019. FINDINGS: Surgical changes and devices: The prior CT scan has documented a large hiatal hernia rotated into the posterior mediastinum, there is a weighted tip feeding tube coiled within the hiatal hernia in this area and it has not advanced from plain film imaging 09/27/2019.. Bowel: No pneumoperitoneum. The bowel gas pattern is normal. Soft tissues: No masses; visualized solid organ contours appear normal in size. No suspicious abdom inal calcifications. Bones: No suspicious bony abnormalities. IMPRESSION: Large hiatal hernia behind the heart, with weighted tip feeding tube coiling within the hiatal hernia. This has not advanced into the abdomen. Reviewed by: Jameel Villalobos MD on 09/28/2019 11:15 AM PDT Approved by: Jameel Villalobos MD on 09/28/2019 11:15 AM PDT Station ID: [id number]
[2019-09-28] MEDS ORDERED: DEXTROSE 10% 250 ML IV STA (12:07)
--- NOTE | 2019-09-28 19:59 | XRAY Report ---
PROCEDURE: Abdomen 1 View X-Ray INDICATIONS: weighted ngt feeding tube TECHNIQUE: 1 view of the abdomen were acquired. COMPARISON: Same day at 8:42 AM FINDINGS: Surgical changes and devices: Dobbhoff feeding tube with the tip projecting in the stomach.. Bowel: No pneumoperitoneum. The bowel gas pattern is normal. Soft tissues: No masses; visualized solid organ contours appear normal in size. No suspicious abdom inal calcifications. Bones: No suspicious bony abnormalities. IMPRESSION: Dobbhoff feeding tube with the tip projecting in the stomach. Reviewed by: Jaquan Mcguire MD on 09/28/2019 7:57 PM PDT Approved by: Jaquan Mcguire MD on 09/28/2019 7:57 PM PDT Station ID: [id number]
--- NOTE | 2019-09-28 20:00 | XRAY Report ---
PROCEDURE: Post Port Placement 1V CXR INDICATIONS: evaluated weighted feeding ngt TECHNIQUE: One view of the chest was acquired. COMPARISON: Abdominal radiographs dated same day. FINDINGS: Surgical changes and devices: Dobbhoff feeding tube with the tip projecting beyond the GE junction, l ikely in the stomach.. Lungs and pleura: No pleural effusions or pneumothorax. Dense consolidation seen in left lung base. Mediastinum: Mediastinal contours appear normal. Heart size is normal. Bones and chest wall: No suspicious bony lesions. Overlying soft tissues appear unremarkable. IMPRESSION: Dobbhoff feeding tube seen with the tip beyond the GE junction, and the stomach. Left basilar consolidation Reviewed by: Jaquan Mcguire MD on 09/28/2019 7:59 PM PDT Approved by: Jaquan Mcguire MD on 09/28/2019 7:59 PM PDT Station ID: [id number]
[2019-09-28] MEDS ORDERED: POTASSIUM CHLORIDE 20 MEQ/15 ML UDC NG SCH (21:30)
[2019-09-29] MEDS: SODIUM CHLORIDE FLUSH 0.9% 10 ML SYRINGE IVP PRN ×4 (01:25→13:31)
[2019-09-29] MEDS: SODIUM CHLORIDE FLUSH 0.9% 10 ML SYRINGE IVP SCH ×4 (01:25→23:41)
[2019-09-29] MEDS: metroNIDAZOLE 500 MG/100 ML 500 MG/100 ML BAG IV SCH ×3 (01:26→19:30)
[2019-09-29 05:36] LABS: BASOPHILS % (AUTO) 0.4 %; EOSINOPHILS # (AUTO) 0.6 10^3/uL (0.0-0.7); EOSINOPHILS % (AUTO) 6.2 %; LYMPHOCYTES # (AUTO) 0.7 10^3/uL (1.5-3.5); LYMPHOCYTES % (AUTO) 7.9 %; MEAN CORPUSCULAR HEMOGLOBIN 29.7 pg (27.0-31.0); MEAN CORPUSCULAR HGB CONC 31.9 g/dL (32.0-36.0); MEAN CORPUSCULAR VOLUME 93.2 fL (81.0-99.0); MEAN PLATELET VOLUME 9.6 fL (7.9-10.8); MONOCYTES # (AUTO) 0.7 10^3/uL (0.0-1.0); MONOCYTES % (AUTO) 8.2 %; NEUTROPHILS # (AUTO) 6.8 10^3/uL (1.5-6.6); NEUTROPHILS % (AUTO) 76.5 %; PLT - PLATELET COUNT 318 10^3/uL (130-450); RED CELL DISTRIBUTION WIDTH 17.2 % (12.0-15.0); WHITE BLOOD COUNT 8.9 x10^3/uL (4.8-10.8)
[2019-09-29 05:46] LABS: CALCIUM 8.1 mg/dL (8.5-10.3); CREATININE 0.8 mg/dL (0.4-1.0); MAGNESIUM 2.2 mg/dL (1.7-2.8); PHOSPHORUS 2.6 mg/dL (2.5-4.6)
[2019-09-29] MEDS: LEVOTHYROXINE 25 MCG TABLET NG SCH (06:40)
[2019-09-29] MEDS: SUCRALFATE 1 GM/10 ML UDC NG SCH ×4 (06:40→20:55)
--- NOTE | 2019-09-29 08:17 | PROVIDER PROGRESS NOTE ---
Subjective - Prog Note Date Prog Note Date: 09/29/19 Prog Note Time: 08:15 - Subjective Subjective: No complaints, no cramping or loose bowels w/ start of tube feed, no pain Current Medications - Current Medications Current Medications: Active Medications Generic Name Dose Route Start Last Admin Trade Name Freq PRN Reason Stop Dose Admin Acetaminophen 650 mg 09/28/19 02:51 09/28/19 03:01 Tylenol PO 650 mg Q4H PRN Administration PAIN 1-4 Ceftriaxone Sodium 2 gm/ 100 mls @ 200 mls/hr 09/26/19 07:21 09/28/19 10:11 Sodium Chloride IV Infused DAILY [facility] Metronidazole 500 mg in 100 mls @ 100 mls/hr 09/26/19 18:00 09/29/19 02:33 Flagyl 500 Mg/100 Ml IV Infused Q8H [facility] Levothyroxine Sodium 50 mcg 09/27/19 11:02 09/29/19 06:40 Synthroid NG 50 mcg 0600 [facility] Administration Morphine Sulfate 2 mg 09/24/19 22:42 09/28/19 18:55 Morphine (Carpuject) IVP 2 mg Q2HR PRN Administration Pain 8 to 10 Ondansetron HCl 4 mg 09/24/19 22:42 Zofran Odt TL Q6HR PRN Nausea / Vomiting Ondansetron HCl 4 mg 09/24/19 22:42 Zofran Inj IVP Q6HR PRN Nausea / Vomiting Pantoprazole Sodium 40 mg 09/25/19 21:00 09/28/19 22:47 Protonix IVP 40 mg BID [facility] Administration Paroxetine HCl 20 mg 09/26/19 09:00 09/28/19 08:51 Paxil NG 20 mg DAILY [facility] Administration Polyethylene Glycol 17 gm 09/25/19 21:00 09/28/19 22:48 Miralax NG 17 gm BID [facility] Administration Potassium Chloride 20 meq 09/27/19 21:49 09/28/19 08:50 NG 20 meq DAILY [facility] Administration Sodium Chloride 10 ml 09/24/19 22:42 09/29/19 02:32 Normal Saline Flush 0.9% IVP 10 ml PRN PRN Administration NEEDED PER PROVIDER ORDERS Sodium Chloride 10 ml 09/25/19 01:00 09/29/19 01:25 Normal Saline Flush 0.9% IVP 10 ml 0100,0900,1700 [facility] Administration Sucralfate 1 gm 09/27/19 22:00 09/29/19 06:40 Carafate NG 1 gm 0700,1100,1600,2200 [facility] Administration Levothyroxine Sodium 50 mcg ORAL QDAC 10/07/17 Omeprazole [PriLOSEC] 20 mg ORAL DAILY 10/07/17 PARoxetine HCl [Paxil] 20 mg ORAL DAILY 10/07/17 Objective - Vital Signs/Intake & Output Reviewed Vital Signs: Yes Vital Signs: Vital Signs x48h Temp Pulse Resp BP Pulse Ox 09/29/19 05:00 37 C 76 20 120/54 L 92 09/29/19 01:00 94 Intake & Output: Intake & Output 09/26/19 09/27/19 09/28/19 09/29/19 23:59 23:59 23:59 23:59 Intake Total 3349.170 2665.33 680 338 Output Total 450 240 Balance 2899.170 2665.33 680 98 - Objective General Appearance: positive: No acute distress, Other (lying in bed on side, easily awakened,) ENT: positive: Other (sllightly hard of hearing) Respiratory: positive: No respiratory distress, Breath sounds nml Cardiovascular: positive: Regular rate & rhythm, No murmur Abdomen: positive: Non-tender, Nml bowel sounds, No distention, Other (Dobhoff infusing at 40 cc/hr). negative: Tenderness Skin: positive: Warm, Dry - Lab Results Fish Bones: 09/29/19 05:00 09/29/19 05:00 Other Labs: Lab Results x24hrs 09/29/19 09/29/19 09/28/19 Range/Units 05:00 05:00 23:43 WBC 8.9 (4.8-10.8) x10^3/uL RBC 3.70 L (4.20-5.40) 10^6/uL Hgb 11.0 L (12.0-16.0) g/dL Hct 34.5 L (37.0-47.0) % MCV 93.2 (81.0-99.0) fL MCH 29.7 (27.0-31.0) pg MCHC 31.9 L (32.0-36.0) g/dL RDW 17.2 H (12.0-15.0) % Plt Count 318 (130-450) 10^3/uL MPV 9.6 (7.9-10.8) fL Neut # (Auto) 6.8 H (1.5-6.6) 10^3/uL Lymph # (Auto) 0.7 L (1.5-3.5) 10^3/uL [place] # (Auto) 0.7 (0.0-1.0) 10^3/uL Eos # (Auto) 0.6 (0.0-0.7) 10^3/uL Baso # (Auto) 0.0 (0.0-0.1) 10^3/uL Absolute Nucleated RBC 0.00 x10^3/uL Nucleated RBC % 0.0 /100WBC Sodium 138 (135-145) mmol/L Potassium 3.4 L (3.5-5.0) mmol/L Chloride 104 (101-111) mmol/L Carbon Dioxide 24 (21-32) mmol/L Anion Gap 10.0 (6-13) BUN 9 (6-20) mg/dL Creatinine 0.8 (0.4-1.0) mg/dL Estimated GFR (MDRD) 68 L (>89) Glucose 92 (70-100) mg/dL POC Whole Bld Glucose 80 (70 - 100) mg/dL Calcium 8.1 L (8.5-10.3) mg/dL Phosphorus 2.6 (2.5-4.6) mg/dL Magnesium 2.2 (1.7-2.8) mg/dL Prealbumin 15 L (18-45) mg/dL Triglycerides 113 ( - 149) mg/dL 09/28/19 09/28/19 09/28/19 Range/Units 17:45 13:54 11:45 WBC (4.8-10.8) x10^3/uL RBC (4.20-5.40) 10^6/uL Hgb (12.0-16.0) g/dL Hct (37.0-47.0) % MCV (81.0-99.0) fL MCH (27.0-31.0) pg MCHC (32.0-36.0) g/dL RDW (12.0-15.0) % Plt Count (130-450) 10^3/uL MPV (7.9-10.8) fL Neut # (Auto) (1.5-6.6) 10^3/uL Lymph # (Auto) (1.5-3.5) 10^3/uL [place] # (Auto) (0.0-1.0) 10^3/uL Eos # (Auto) (0.0-0.7) 10^3/uL Baso # (Auto) (0.0-0.1) 10^3/uL Absolute Nucleated RBC x10^3/uL Nucleated RBC % /100WBC Sodium (135-145) mmol/L Potassium (3.5-5.0) mmol/L Chloride (101-111) mmol/L Carbon Dioxide (21-32) mmol/L Anion Gap (6-13) BUN (6-20) mg/dL Creatinine (0.4-1.0) mg/dL Estimated GFR (MDRD) (>89) Glucose (70-100) mg/dL POC Whole Bld Glucose 80 204 H 50 L* (70 - 100) mg/dL Calcium (8.5-10.3) mg/dL Phosphorus (2.5-4.6) mg/dL Magnesium (1.7-2.8) mg/dL Prealbumin (18-45) mg/dL Triglycerides ( - 149) mg/dL Assessment/Plan - Problem List (1) Tyra-Tom tear Impression: (1) Tyra-Tom tear Impression: w / acute blood loss anemia requiring 3 units PRBCs total on 09/23, 09/24. S/p clipping during endoscopy CTchest was negative for perforation. Hgb continues stable (H/H 11/34.5 today, stable x 72 hrs), no signs of bleeding NPO and started Dobhoff feeds after successful reinsertion of initially coiled Dobhoff/ 40 cc/ hr currently; goal 50 cc/hr Per Dr. Naik ; plan 1 week of Dobhoff feeds. Dietitician notified if we can already try bolus feeds which would be plan at home (Test Consultant will also address water needs Continues 40 IV bid protonix. (on omeproazole 20/day at home/ Ok per Dr Naik to reduce to 40 qd (not ulcer) Update; Per chief port director note; RE: plan for Dobhoff feeds x 1 wk to allow MW tear healing; " Coordinated with [facility], surgeon, ANRP, and pt. Pt will need to pay out of pocket as Medicare will not cover EN unless anticipated need is 90 days or greater. Per discussion with surgeon, pt is to get nocturnal feeds ([id number]) and starting day 4 after discharge consume full liquids during the day to determine tolerance while still providing EN feeds at night for 3 days before pulling dobhoff. " (2) Acute diverticulitis Impression: Identified as possible early process on 09/25 CT(and given fever Tmax 37.7 and WBC 19.4 o 09/25 started ABX for possible dirverticulitis. Remains afeb since, with normalized WBC. Day 4 antibiotics Planned change to PO Augmentin, will check if elixier available (3) Acute blood loss anemia Impression: Related to tear from Tyra Tom. As above s/p 3 u PRBC hemodynamically stable, and stable H/H with no signs of bleeding (4) Depression with anxiety Impression: Stable. continue home paroxetine (5) Hypothyroid Impression: Stable. Continue home Synthroid. Qualifiers: DISPO; anticipate d/c tomorrow as long as tolerates increased feeding rate , and plans in place for feedings w/ assist of [facility] as above surgical follow up per keely Naik Will also check in am which home meds can be crushed
[2019-09-29] MEDS: PARoxetine 10 MG TABLET NG SCH (10:16)
[2019-09-29] MEDS: PANTOPRAZOLE 40 MG VIAL IVP SCH (10:16)
[2019-09-29] MEDS: cefTRIAXone 2 GM in SODIUM CHLORIDE 0.9% MINIBAG 100 ML IV SCH (10:17)
[2019-09-29] MEDS: polyethylene glycoL 3350 17 GM PACKET NG SCH ×2 (10:18→20:55)
[2019-09-29] MEDS: POTASSIUM CHLORIDE 20 MEQ/15 ML UDC NG SCH (10:18)
[2019-09-29] MEDS: MORPHINE 2 MG/ML CARPUJECT IVP PRN ×3 (13:30→20:41)
[2019-09-30] MEDS: metroNIDAZOLE 500 MG/100 ML 500 MG/100 ML BAG IV SCH ×2 (01:41→11:34)
[2019-09-30] MEDS: SODIUM CHLORIDE FLUSH 0.9% 10 ML SYRINGE IVP PRN (06:21)
[2019-09-30] MEDS: SUCRALFATE 1 GM/10 ML UDC NG SCH ×2 (06:23→11:41)
[2019-09-30] MEDS: LEVOTHYROXINE 25 MCG TABLET NG SCH (06:23)
[2019-09-30] MEDS ORDERED: PANTOPRAZOLE 40 MG VIAL IVP SCH (07:00)
--- NOTE | 2019-09-30 08:40 | Discharge Plan ---
Discharge Plan Problem Reviewed?: Yes Disposition: 06 Home Health Service Condition: Stable Activity Restrictions: Activity as Tolerated (Be careful not to pull tube) Shower Restrictions: No Driving Restrictions: No Weight Bearing: Full Weight Health Concerns: Tyra Tom Tear (tear in the esophagus that bled) Underlying problem is large hiatal hernia that can be a risk factor for Tyra Tom Tear You required 3 units of packed red blood cells but your blood count has since remained stable with no new signs of bleeding Tear was clipped by Dr Naik under endoscopy A Dobhoff Feeding tube was placed to help get enough nutrition for healing and protect affected area of esophagus during healing. Per Dr Naik discussion with plumber supervisor here and [facility] Feeding Plan: 1) [facility] to Manage patients Tube Feedings. STd Isotonic 1.2 kcal/ml Intermittent feedings 1.5 cans formula at 0900 1.5 cans formula at 1300 (1pm) 1.5 cans formula at 1800 (6pm) Flush tube with 300 ml of water before AND after each feeding to get enough water After 5 days of tube feed, the Dobhoff (nasogastric tube) can be pulled on 10/04. An appointment was made in clinic to do this: Go to your PCP 's clinic on Wednesday 10/04 1400 (2pm) with Kami Limon NP, to have the tube pulled ( [facility] cannot pull it). Appointment was made by Tank Cleaning Supervisor AFTER tube pulled on 10/04, ok to start FULL liquid diet as described by the healthcare associate Dr Naik said it was ok for your to take your home oral medications (by mouth, not by the tube) Plan of Treatment: above Care Goals: Adequate nutrition (by tube feeds) to allow healing of esophageal tear Additional Instructions or Follow Up instructions: as above Go to clinic on Saturday for tube pull (Kami Limon NP) 2pm 10/04 No Smoking: If you smoke, Please STOP! Call for help. Follow-up with: Ada Awad PA [Primary Care Provider] -
[2019-09-30] MEDS: MORPHINE 2 MG/ML CARPUJECT IVP PRN ×2 (09:53→11:58)
[2019-09-30] MEDS: SODIUM CHLORIDE FLUSH 0.9% 10 ML SYRINGE IVP SCH (09:54)
[2019-09-30] MEDS: cefTRIAXone 2 GM in SODIUM CHLORIDE 0.9% MINIBAG 100 ML IV SCH (09:56)
[2019-09-30] MEDS: polyethylene glycoL 3350 17 GM PACKET NG SCH (09:58)
[2019-09-30] MEDS: POTASSIUM CHLORIDE 20 MEQ/15 ML UDC NG SCH (09:58)
[2019-09-30] MEDS: PARoxetine 10 MG TABLET NG SCH (11:12)
--- NOTE | 2019-09-30 12:28 | PROVIDER PROGRESS NOTE ---
Progress Note Postoperative day #5 status post upper endoscopy with findings as per EMR. Tyra-Tom tear with significant blood loss anemia. Multiply transfused. Weighted gastric tube placed postpyloric during upper endoscopy. Patient pulled out tube, In the interim she was started on TPN, she was reattempted for weighted nasogastric tube placement unsuccessfully. Ultimately I was able to then replace nasogastric tube without any complication and she was resumed on tube feeds. She has no recurrent bleeding has been stable from hemoglobin and hematocrit standpoint and is pending discharge. Abdomen soft nontender nondistended no rebound or guarding. Labs reviewed and plan of care discussed with hospital service. 84-year-old female with hiatal hernia with significant upper gastrointestinal bleed secondary to Tyra-Tom tear. Multiply transfused. Postpyloric weighted feeding tube placed which was self discontinued by patient. Leukoc ytosis, with fever However imaging was without any concern for full-thickness perforation of the thoracic esophagus or abdominal esophagus. Questionable diverticulosis with thickening consistent or concerning for diverticulitis however no abdominal pain and this is likely chronic stigmata of longstanding disease not active at this time. No need for antibiotics. Recommend several days of nasogastric feeding through weighted G-tube to allow esophagus to heal. Patient may be discharged with bolus feeds during the day agree with avoiding nocturnal feeds given risk of aspiration. May resume oral medications with sips. Remove nasogastric tube in 4 to 5 days and start full liquid diet. If patient continues with symptoms including retching and nausea likely from thoracic stomach/hiatal hernia may consider gastropexy with open versus laparoscopic assisted versus endoscopic gastrostomy tube that would likely afford the patient some long-term benefit in the setting of persistent symptoms. (1) GI - PPI, NG enteral feeds for several more days, then may remove with full liquid diet. (2) SURGERY - status post upper endoscopy revealing BLEEDING Tyra-Tom tear with active extravasation for which multiple clips were placed with hemostasis achieved. Weighted nasogastric tube placed for enteral feeds, in setting of VERY large hiatal hernia could consider gastropexy with percutaneous endoscopic gastrostomy tube which would offer multiple benefits in this patient. Several days of enteral feeds via weighted feeding tube, nasogastric, and resume full liquids thereafter. (4) Heme - H/H stable. Continue to trend as outpatient. (5) Repeat endoscopy in 4-6 weeks and follow up with Surgery clinic.
[2019-09-30 16:07] VITALS: BP 113/54
--- NOTE | 2019-09-30 18:46 | DISCHARGE SUMMARY ---
"Discharge Summary Admit Date: 09/24/19 Discharge Date: 09/30/19 Discharging Provider: TESSA Humphrey, ACNP Primary Care Provider: Dr Ada Awad Code Status: Attempt Resuscitation Condition at Discharge: Stable Discharge Disposition: Home Health Service Discharge Facility [facility]: [facility] - DIAGNOSES Admission Diagnoses: Upper GI bleed Acute Blood Loss Anemia Hiatal Hernia/Gerd Depression Hypothyroidism Subacute diverticulitis; Discharge Diagnoses with Status of Each Condition: Tyra Tom Tear clipped during endoscopy, Dobhoff feed x 5 days post discharge to allow healing repeat EGD 4-6 weeks Acute Blood Loss Anemia due to bleed from Tyra Tom tear/ stable following 3 units packed red blood cells Hiatal Hernia/Gerd stable , ok to continue oral PPI per surgeon on discharge Depression; stable continues home Paxil Hypothyroidism stable on home levothyroxine - HPI History of Present Illness: 84-year-old female who has a previous history of iron deficiency anemia with a previous EGD done in 2016. That showed antral gastritis and small ulcers. She is followed by hematology oncology and has iron infusions. Last hemoglobin in July 2019 was 11.6. She was recently stopped on her omeprazole for the last 2 months. She is not on any nonsteroidals. She has had no change in bowel habits and is chronically constipated. Yesterday she developed nausea, and it became severe enough that she had to throw up. There is no severe retching. A small amount of blood was brought up. Between yesterday and today she is remained nauseated, and has become progressively weak and lightheaded. She was brought to the emergency room by her daughter. Here her systolic blood pressure was in the 80s when she was evaluated by the emergency room physician. With a small amount of IV fluid bolus her systolic is now 110. Stools have been dark for the last 2 weeks. Hemoglobin today is 7.6. She is now placed in observation for upper GI bleed, and possible EGD with general surgery consult. - CONSULTS | PROCEDURES Consultations: General Surgery; Dr Keith Naik Procedures: Endoscopy 09/25/2019 with clipping of tyra cookie tear and known large hiatal hernia. Tyra Tom tear at GE junction, actively bleeding, 4 Resolution Endoclips placed Placement of Dobhoff feeding tube - HOSPITAL COURSE Hospital Course: 1) Tyra Tom Tear EGD on 09/24 identified source of bleed as Tyra Tom tear at GE junction, clipped with 4 Endoclilps. Dobhoff feeding tube placed to help meet caloric needs for healing, and allow healing. H/H remained stable following 3 units packed red cells and patient tolerated start of Dobhoff tube feeds after initally coiled tube was replaced. NG feeding for discharge per Dr Naik discussion with senior front end engineer here and [facility] Feeding Plan: 1) [facility] to Manage patients Tube Feedings. STd Isotonic 1.2 kcal/ml Intermittent feedings 1.5 cans formula at 0900 1.5 cans formula at 1300 (1pm) 1.5 cans formula at 1800 (6pm) Flush tube with 300 ml of water before AND after each feeding to get enough water --After tube removed on Day 5 patient may start full liquid diet Clinic appt w/ Kami Limon scheduled for 2pm Mon 10/04 to pull Dobhoff ([facility] cannot pull tube) Plan repeat endoscopy in 4-6 weeks, follow up in surgery clinic (needs to be scheduled) 2) Acute Blood Loss Anemia stable following 3 units red blood cells (lowest H/H was 7.0/22 on 09/24 with mild hypotension) H/H 11/34.5 on 09/28 3) Hiatal Hernia/Gerd 4)Depression; stable continues home Paxil 5) Hypothyroidism stable on home medication - ALLERGIES Allergies/Adverse Reactions: Allergies Allergy/AdvReac Type Severity Reaction Status Date / Time prochlorperazine edisylate * Allergy Hives Verified 07/28/19 09:26 [From Compazine] prochlorperazine maleate * Allergy Hives Verified 07/28/19 09:26 [From Compazine] Sulfa (Sulfonamide Allergy not known Verified 07/28/19 09:26 Antibiotics) sulfamethoxazole Allergy not known Verified 07/28/19 09:26 [From Septra] trimethoprim [From Septra] Allergy not known Verified 07/28/19 09:26 - MEDICATIONS Home Medications: Ambulatory Orders Medication Instructions Recorded Confirmed Levothyroxine Sodium 50 mcg ORAL QDAC 10/07/17 09/25/19 Omeprazole [PriLOSEC] 20 mg ORAL DAILY 10/07/17 09/25/19 PARoxetine HCl [Paxil] 20 mg ORAL DAILY 10/07/17 09/25/19 Acetaminophen [Tylenol] 650 mg PO Q4H PRN udc 09/30/19 - PHYSICAL EXAM AT DISCHARGE General Appearance: positive: No acute distress, Alert, Other (looking forward to going home, asking appropriate questions regarding discharge) Eyes Bilateral: positive: Normal inspection, EOMI Respiratory: positive: Chest non-tender, No respiratory distress, Breath sounds nml Cardiovascular: positive: Regular rate & rhythm, No murmur Abdomen: positive: Nml bowel sounds, No distention, Other (Dobhoff infusing without difficulty) Skin: positive: Warm, Dry Extremities: negative: Pedal edema Neurologic/Psychiatric: positive: Oriented x3, Mood/affect nml - LABS Result Diagrams: 09/29/19 05:00 09/29/19 05:00 - FOLLOW UP Follow Up: needs surgical follow up scheduled for repeat EGD 4-6 weeks - TIME SPENT Time Spent in Discharge (Minutes): 45"
== END 2019-09-30 16:15 | disposition home or self-care (01) | DRG 369 ==
LOC: ED 19:48 → MS2 22:42 → OBSVTOIN 09-25 14:35
PROVIDERS: ADMIT Specialist; ATTEND Nurse Practitioner
PROC: 0W3P8ZZ Control Bleeding in Gastrointestinal Tract, Via Natural or Artificial Opening Endoscopic (ICD-10-PCS; principal; 2019-09-25 15:00)
PROC: 3E0336Z Introduction of Nutritional Substance into Peripheral Vein, Percutaneous Approach (ICD-10-PCS; 2019-09-26)
DX: K92.0 Hematemesis (principal); K22.6 Gastro-esophageal laceration-hemorrhage syndrome; I95.9 Hypotension, unspecified; D72.829 Elevated white blood cell count, unspecified; D62 Acute posthemorrhagic anemia; C34.32 Malignant neoplasm of lower lobe, left bronchus or lung; K57.30 Diverticulosis of large intestine without perforation or abscess without bleeding; D50.9 Iron deficiency anemia, unspecified; K59.09 Other constipation; K44.9 Diaphragmatic hernia without obstruction or gangrene; G47.33 Obstructive sleep apnea (adult) (pediatric); E03.9 Hypothyroidism, unspecified; I51.7 Cardiomegaly; K21.9 Gastro-esophageal reflux disease without esophagitis; F41.8 Other specified anxiety disorders; R32 Unspecified urinary incontinence; H91.90 Unspecified hearing loss, unspecified ear; Z79.899 Other long term (current) drug therapy; Z87.11 Personal history of peptic ulcer disease; Z87.19 Personal history of other diseases of the digestive system; Z90.49 Acquired absence of other specified parts of digestive tract; Z90.710 Acquired absence of both cervix and uterus
CPT/HCPCS: 36415; 36430; 71045; 71260; 74018; 74177; 80048; 80053; 81001; 82272; 82550; 83690; 83735; 83880; 84100; 84134; 84478; 85014; 85018; 85025; 86850; 86900; 86901; 86920; 87040; 87086; 96361; 96374; 96375; 96376; 99284; 99285; A9270; G0378; J0131; J3490; J7120; P9016; Q9967; 81003

== ENCOUNTER 2019-10-01 19:18 | Emergency (ER) | payer MEDICARE, OTHER ==
--- NOTE | 2019-10-01 21:15 | ED Physician Documentation ---
History of Present Illness - Stated complaint Stated Complaint: UNEXPLAINED BLEEDING - Chief complaint Chief Complaint: General - History obtained from History obtained from: Patient - Additonal information Additional information: Patient comes emergency department with her daughter after noticing bloody return from her NG tube at home. Patient was just admitted for about a week to our hospital for a Tyra-Tom tear and required a 4 unit blood transfusion at that time. She had been experiencing black, tarry stools in the days leading up to her admission., She reports. Patient denies noticing this this time. She denies lightheadedness. She has had some diarrhea. No abdominal pain. Review of Systems Ten Systems: 10 systems reviewed and negative Constitutional: reports: Reviewed and negative Eyes: reports: Reviewed and negative Ears: reports: Reviewed and negative Nose: reports: Reviewed and negative Throat: reports: Reviewed and negative Cardiac: reports: Reviewed and negative Respiratory: reports: Reviewed and negative GI: reports: Reviewed and negative : reports: Reviewed and negative Skin: reports: Reviewed and negative Musculoskeletal: reports: Reviewed and negative Neurologic: reports: Reviewed and negative Psychiatric: reports: Reviewed and negative Endocrine: reports: Reviewed and negative Immunocompromised: reports: Reviewed and negative PD PAST MEDICAL HISTORY - Past Medical History Past Medical History: Yes Cardiovascular: None Respiratory: Sleep apnea, Other Neuro: None Endocrine/Autoimmune: HyPOthyroidism GI: GERD, Ulcers, Diverticulitis, Other : Other HEENT: Chronic hearing loss Psych: Depression Musculoskeletal: None, Osteoarthritis Derm: None - Past Surgical History Past Surgical History: No General: Cholecystectomy, Colonoscopy /SEGMENT BLOCK LAYER: Hysterectomy HEENT: Tonsil/Adenoidectomy Derm: Skin cancer surgery - Present Medications Home Medications: Ambulatory Orders Medication Instructions Recorded Confirmed Levothyroxine Sodium 50 mcg ORAL QDAC 10/07/17 09/25/19 Omeprazole [PriLOSEC] 20 mg ORAL DAILY 10/07/17 09/25/19 PARoxetine HCl [Paxil] 20 mg ORAL DAILY 10/07/17 09/25/19 Acetaminophen [Tylenol] 650 mg PO Q4H PRN udc 09/30/19 - Allergies Allergies/Adverse Reactions: Allergies Allergy/AdvReac Type Severity Reaction Status Date / Time prochlorperazine edisylate * Allergy Hives Verified 10/01/19 19:32 [From Compazine] prochlorperazine maleate * Allergy Hives Verified 10/01/19 19:32 [From Compazine] Sulfa (Sulfonamide Allergy not known Verified 10/01/19 19:32 Antibiotics) sulfamethoxazole Allergy not known Verified 10/01/19 19:32 [From Septra] trimethoprim [From Septra] Allergy not known Verified 10/01/19 19:32 - Social History Does the pt smoke?: No Smoking Status: Never smoker Does the pt drink ETOH?: Yes Does the pt have substance abuse?: Yes - Immunizations Immunizations are current?: Yes - POLST Patient has POLST: No PD ED PE NORMAL - Vitals Vital signs reviewed: Yes - General General: Alert and oriented X 3, No acute distress - HEENT HEENT: Atraumatic, PERRL, EOMI, Moist mucous membranes - Neck Neck: Supple, no meningeal sign - Cardiac Cardiac: RRR, No murmur - Respiratory Respiratory: No respiratory distress, Clear bilaterally - Abdomen Abdomen: Soft, Non tender, Non distended, Other (Small gauge NG tube in place with mild amount of bloody residue in tube.) - Derm Derm: Warm and dry - Extremities Extremities: No deformity - Neuro Neuro: Alert and oriented X 3 - Psych Psych: Normal mood, Normal affect Results - Vitals Vitals: Vital Signs - 24 hr 10/01/19 10/01/19 10/01/19 19:22 21:18 22:07 Temperature 36.8 C 37.5 C Heart Rate 91 81 78 Respiratory 18 18 16 Rate Blood Pressure 160/99 H 117/44 L 117/60 O2 Saturation 96 95 95 Oxygen O2 Source Room air - Labs Labs: Laboratory Tests 10/01/19 21:23 WBC 14.0 H RBC 3.78 L Hgb 11.0 L Hct 35.6 L MCV 94.2 MCH 29.1 MCHC 30.9 L RDW 17.2 H Plt Count 417 MPV 9.4 Neut # (Auto) 11.6 H Lymph # (Auto) 1.0 L [place] # (Auto) 0.9 Eos # (Auto) 0.3 Baso # (Auto) 0.1 Absolute Nucleated RBC 0.00 Nucleated RBC % 0.0 - Rads (name of study) Chest x-ray Radiology: Final report received, EMP read indepedently, See rad report (No acute disease. NG tube noted to follow-up with its proper course; Tip noted at beginning of small intestine.) PD MEDICAL DECISION MAKING - ED course Complexity details: reviewed results, re-evaluated patient, considered differential, d/w patient, d/w family ED course: I discussed with the patient and daughter that the patient is hemodynamically stable and it sounds as though the bleeding cleared. I did have nursing staff flush the line, which flushed very easily. Because of the small caliber of the tube, it was difficult to draw back, as well as it seemed the tip had lodged against soft tissue. However, the small amount of fluid that was able to be drawn back did not show any bright red blood. The patient was hemodynamically stable here and had reported no new development of melena. Her hemoglobin was unchanged from her hemoglobin 2 days ago at 11.0, and x-ray showed the tube to be intact and in good placement. We have discussed that there may occasionally be bleeding at the tip happens to poke into an area that is prone to bleed; however, as long as this is short-lived and the patient feels well, has no melena, and no change in her H&H, there is no cause for concern. I have advised the patient and daughter that if the bleeding goes on for more than just a few minutes, or if the patient begins vomiting blood or if her stools become melanotic, or if she begins to feel faint and lightheaded, then she needs to be reevaluated. Otherwise, she may follow-up with her surgeon regarding the NG tube as she is scheduled to do already. Departure - Departure Disposition: 01 Home, Self Care Clinical Impression: Upper GI bleeding Condition: Stable Instructions: ED Bleed UGI Stable Comments: Your x-ray shows good placement of the nasogastric tube. Your red blood cell levels have not dropped at all since your last laboratory study 2 days ago. This level was significantly higher than the levels earlier in your admission. At this point in time, your vital signs are stable and there is no evidence of a dangerous amount of bleeding. You are still healing from your tear and may have occasional bleeding. Additionally, The tip of the catheter can occasionally cause a minor abrasion in the wall of the stomach, but this generally will not cause significant or dangerous bleeding. If you begin to notice black tarry stools again, or if you become lightheaded or develop abdominal pain, or if you begin to vomit bloody material, you should return to the emergency department immediately. Otherwise, continue your tube feedings and call your doctor's office to determine whether they would like to see you sooner than scheduled. Discharge Date/Time: 10/01/19 22:12
[2019-10-01 21:26] LABS: BASOPHILS # (AUTO) 0.1 10^3/uL (0.0-0.1); BASOPHILS % (AUTO) 0.5 %; EOSINOPHILS # (AUTO) 0.3 10^3/uL (0.0-0.7); EOSINOPHILS % (AUTO) 2.1 %; LYMPHOCYTES % (AUTO) 6.9 %; MEAN CORPUSCULAR HEMOGLOBIN 29.1 pg (27.0-31.0); MEAN CORPUSCULAR HGB CONC 30.9 g/dL (32.0-36.0); MEAN CORPUSCULAR VOLUME 94.2 fL (81.0-99.0); MEAN PLATELET VOLUME 9.4 fL (7.9-10.8); MONOCYTES # (AUTO) 0.9 10^3/uL (0.0-1.0); MONOCYTES % (AUTO) 6.2 %; NEUTROPHILS # (AUTO) 11.6 10^3/uL (1.5-6.6); NEUTROPHILS % (AUTO) 83.2 %; PLT - PLATELET COUNT 417 10^3/uL (130-450); RED BLOOD COUNT 3.78 10^6/uL (4.20-5.40); RED CELL DISTRIBUTION WIDTH 17.2 % (12.0-15.0)
--- NOTE | 2019-10-01 21:49 | XRAY Report ---
PROCEDURE: Chest 1 View X-Ray INDICATIONS: chest pain TECHNIQUE: One view of the chest was acquired. COMPARISON: CT chest 09/26/2019, Chest x-ray 09/26/2019 FINDINGS: Surgical changes and devices:, Feeding tube is noted with distal tip projecting over the proximal sma ll bowel. Lungs and pleura: Improved, although mildly persistent appearance of left basilar/retrocardiac opacit ies. Mediastinum: Mediastinal contours appear normal. Heart size is enlarged. Prominent hiatal hernia. Bones and chest wall: No suspicious bony lesions. Overlying soft tissues appear unremarkable. IMPRESSION: Improved appearance of retrocardiac and left basilar opacities reflecting improving effusion and like ly superimposed airspace disease. Reviewed by: Caryl Gates MD on 10/01/2019 9:48 PM PDT Approved by: Caryl Gates MD on 10/01/2019 9:48 PM PDT Station ID: [id number]
[2019-10-01 22:07] VITALS: BP 117/60
== END 2019-10-01 22:12 | disposition home or self-care (01) ==
LOC: ED 19:18
DX: K92.2 Gastrointestinal hemorrhage, unspecified (principal)
CPT/HCPCS: 36415; 71045; 85025; 99284

== ENCOUNTER 2019-12-23 14:11 | Outpatient (CLI) | payer MEDICARE, OTHER ==
--- NOTE | 2019-12-24 14:42 | Mammography Report ---
BILATERAL DIGITAL SCREENING MAMMOGRAM 3D/2D: 12/23/2019 CLINICAL: Routine screening. Comparison is made to exams dated: 05/29/2018 mammogram, 11/26/2016 mammogram, 05/20/2014 mammogram, 03/21 mammogram, 02/23/2011 mammogram, and 01/24/2010 mammogram - [facility]. There are scattered fibroglandular elements in both breasts. There are benign post operative findings in the left breast. No significant masses, calcifications, or other findings are seen in either breast. There has been no significant interval change. IMPRESSION: BENIGN There is no mammographic evidence of malignancy. A 1 year screening mammogram is recommended. This exam was interpreted at Station ID: [id number]. NOTE: For mammograms, a report in lay terms will be sent to the patient. Approximately 15% of breast malignancies will not be visualized mammographically. In the management of a palpable breast mass, a negative mammogram must not discourage biopsy of a clinically suspicious lesion. Electronically Signed By: Tanika pablo/nay:12/23/2019 16:04:37 ACR BI-RADS Category 2: Benign Finding(s) 3342F PARENCHYMAL PATTERN: (A) - The breast(s) demonstrate(s) scattered fibroglandular densities. BI-RADS CATEGORY: (2) - 2 RECOMMENDATION: (ANNUAL) - Recommend routine annual screening mammography. [id number] 1 year screening LATERALITY: (B)
== END 2019-12-23 14:12 | disposition home or self-care (01) ==
LOC: DI 14:11
PROVIDERS: ATTEND Nurse Practitioner Family
DX: Z12.31 Encounter for screening mammogram for malignant neoplasm of breast (principal)
CPT/HCPCS: 77063; 77067

== ENCOUNTER 2019-12-31 11:43 | Outpatient (CLI) | payer MEDICARE, OTHER ==
--- NOTE | 2019-12-31 11:38 | SLEEP CARE CONSULTATION ---
Information from patient questionnaire entered by Ruddy Gaspar. I have reviewed and concur with the information entered by Ruddy Gaspar. This document represents the service I personally performed and the decisions made by me, Alannah Victor ARNP. History of Present Illness Service Date and Time: 12/31/2019 1100 Initial [place] Sleepiness Scale score: 5 (in 2016) Current [place] Sleepiness Scale score: 3 Additional HPI information: TIMOTHY MARQUEZ returns for follow up and results of the recently performed polysomnography. She was found to have mild obstructive sleep apnea with an average AHI of 12.2 and cynthia oxygen saturation of 79%. I explained the pathophysiology behind obstructive sleep apnea. We then spent quite a bit of time discussing different treatment options. For mild obstructive sleep apnea, surgery and oral appliance are alternatives to nasal CPAP therapy but in moderate or severe cases, nasal CPAP is the most effective and reliable treatment. Because apnea is primarily in supine position, then positional management therapy could be effective. Methods discussed such as positioning with pillows, using a T-shirt with tennis balls in the back, and shown commercial products that have a pillow format on back to prevent supine sleep. I reviewed the impact of weight changes on sleep apnea and strongly recommended losing weight. After some discussion, the patient opted to go with the nasal CPAP therapy. Nasal autoCPAP set at 4-15 cmH20 will be ordered with rationale explained. A manual titration study will be ordered if unable to find optimal pressure with office adjustments. I explained how CPAP machine works with sample devices Respironics Dreamstation and ResIceotope [id number] and what to expect when using the machine. Using CPAP every night in order to get used to it was emphasized. Patient advised to put CPAP mask on before getting into bed so as not to fall asleep without CPAP. To assist acclimation to CPAP use, it could also be used for a short time during day while reading or watching TV. The patient was instructed to call the CPAP supplier to discuss any mechanical problem that may occur. If the mask given is uncomfortable or is difficult to keep on through the night even with adjustment, contact the CPAP supplier as many will replace with another mask style if notified before 30 days. If snoring or perceives is not getting enough air or too much air from the machine, notify this office. [facility] patient education PAP tips and Non Pap treatment pamphlets reviewed and given to patient. Sleep Study - Results Type of Sleep Study: Polysomnography Polysomnography/Home Sleep Study results: IMPRESSION: The quality of the study is good. The patient had slightly reduced sleep efficiency due to sleep onset insomnia.. The sleep architecture was abnormal for sleep fragmentation and reduced amount of time spent in REM and slow wave sleep (N3). Respiratory monitoring showed mild obstructive sleep apnea-hypopnea (AHI = 12.2) associated with frequent arousals, oxyhemoglobin desaturation and moderate hypoxia (cynthia oxygen saturation of 79%). Baseline oxygen saturation was low-normal. The patient did not sleep supin e during this study (supine AHI = ; non-supine = 12.21). Snore was loud in intensity. There was mild periodic leg movement of sleep not contributing to the sleep fragmentation. Cardiac rhythm was normal sinus rhythm without significant arrhythmia. No abnormal behavior (parasomnia) observed during the night. Allergies and Home Medications Drug allergies reviewed: Yes (prochloperazine edisylate) Home medication list reviewed: Yes (added Paxil, levothyroxine, omeprazole) Review of Systems Review of systems same as previous: Yes (lung cancer last june) Physical Exam Heart Rate: 77 O2 Saturation: 93 Height: 5 ft 5 in Weight: 136 lb Body Mass Index: 22.6 BMI Classification: Healthy weight Impression and Plan 1. Obstructive Sleep Apnea-Hypopnea Syndrome, mild, with lowest oxygen saturation of 79%. Obviously this is the cause of the patients symptoms of unrefreshed sleep, and excessive daytime sleepiness. Positive pressure therapy could benefit her GERD and depression. Patient states she has issues with runny nose and nasal congestion at night. I advised her to use a saline nasal spray and gave sample of saline nasal spray to use prior CPAP use at night. As mentioned above, the patient will be started on nasal autoCPAP therapy with pressure set at 4-15 cmH2O. A manual titration study will be completed if unable to find optimal treatment pressure with office adjustments. Compliance guidelines also reviewed. A copy of compliance guidelines will be given for reference at check out. 2. Periodic limb movement, mild, that did not fragment patients sleep. Periodic limb movement of sleep (PLMS) is characterized by episodes of repetitive limb movements that occur during sleep and usually involve the lower limbs. The etiology is unknown but can be associated with restless leg syndrome (RLS), neuropathy, spinal cord diseases, kidney disease, rheumatological disorders, narcolepsy, obstructive sleep apnea, and REM sleep behavior disorder. Other factors that can increase PLMS and/or RLS are heredity and iron deficiency as reflected by a low serum ferritin level below 50 to 75mcg / L. Several medications can precipitate or aggravate PLMS such as selective serotonin re- uptake inhibitor antidepressants, tricyclic antidepressants, lithium, and dopamine receptor antagonists with the exception of bupropion. Caffeine can also aggravate PLMS and should be avoided. Sleep hygiene methods can also improve sleep as well as lifestyle changes such as regular exercise. Patient was advised that no treatment is needed at this time. If symptoms increase, then further evaluation is indicated. * Nasal auto CPAP therapy, pressure at 4-15 cm H2O. * Attempt to lose weight. * Avoid alcohol consumption near bedtime. * The patient is again cautioned about driving until sleepiness completely resolves. * Return one month after CPAP obtained. I will assess response to therapy and compliance at that time. Counseling Topics: Weight loss health impact Visit Type: In Office Time Spent with Patient (minutes): 25 Provider Statement: I spent 100% of the Face to Face Visit with the patient with greater than 50% spent counseling the patient and coordination of care.
== END 2019-12-31 11:44 | disposition home or self-care (01) ==
LOC: SC 11:43
PROVIDERS: ATTEND Nurse Practitioner Family
DX: G47.33 Obstructive sleep apnea (adult) (pediatric) (principal); G47.61 Periodic limb movement disorder
CPT/HCPCS: 99213; G0463; 99212

== ENCOUNTER 2020-03-08 08:18 | Day surgery (SDC) | payer MEDICARE, OTHER ==
[2020-03-08] MEDS ORDERED: LACTATED RINGERS 1,000 ML IV ONE ×2 (08:49→11:10)
[2020-03-08] MEDS ORDERED: ePHEDrine 50 MG/ML VIAL IVP PRN (09:03)
[2020-03-08] MEDS ORDERED: NALOXONE 0.4 MG/ML VIAL IVP PRN (09:03)
[2020-03-08] MEDS ORDERED: ATROPINE ABBOJECT 1 MG/10 ML SYRINGE IVP PRN (09:03)
[2020-03-08] MEDS ORDERED: ONDANSETRON 4 MG/2 ML VIAL IVP PRN (09:03)
[2020-03-08] MEDS ORDERED: fentaNYL 100 MCG/2 ML VIAL IVP PRN (09:03)
[2020-03-08] MEDS ORDERED: METOCLOPRAMIDE 10 MG/2 ML VIAL IVP PRN (09:03)
[2020-03-08] MEDS ORDERED: MORPHINE 2 MG/ML CARPUJECT IVP PRN (09:03)
[2020-03-08] MEDS ORDERED: HYDROmorphone 0.5 MG/0.5 ML SYRINGE IVP PRN (09:03)
--- NOTE | 2020-03-08 09:03 | ANESTHESIA ---
Pre-Anesthesia VS, & Labs - Diagnosis Positive FIT - Procedure colonoscopy Vital Signs: Temp Pulse Resp BP Pulse Ox 36.4 C L 89 17 139/92 H 96 03/08/20 08:32 03/08/20 08:32 03/08/20 08:32 03/08/20 08:32 03/08/20 08:32 Height: 5 ft 5 in Weight (kg): 58.9 kg Body Mass Index: 21.6 BMI Classification: Healthy weight - NPO >8 hours - Is Patient ?: No - Lab Results Lab results reviewed: Yes Home Medications and Allergies Home Medications: Ambulatory Orders Ibuprofen/Diphenhydramine Cit [Ibuprofen Pm Caplet] 1 each PO QPM PRN 03/07/20 Levothyroxine Sodium 50 mcg ORAL QDAC 10/07/17 Omeprazole [PriLOSEC] 20 mg ORAL BID 10/07/17 PARoxetine HCl [Paxil] 10 mg ORAL DAILY 10/07/17 Ibuprofen/Diphenhydramine Cit [Ibuprofen Pm Caplet] 1 each PO QPM PRN 03/07/20 Allergies/Adverse Reactions: Allergies Allergy/AdvReac Type Severity Reaction Status Date / Time prochlorperazine edisylate * Allergy Hives Verified 10/01/19 19:32 [From Compazine] prochlorperazine maleate * Allergy Hives Verified 10/01/19 19:32 [From Compazine] Sulfa (Sulfonamide Allergy not known Verified 10/01/19 19:32 Antibiotics) sulfamethoxazole Allergy not known Verified 10/01/19 19:32 [From Septra] trimethoprim [From Septra] Allergy not known Verified 10/01/19 19:32 Anes History & Medical History - Anesthetic History Anesthesia Complications: reports: No previous complications Family history of Anesthesia Complications: Denies Family history of Malignant Hyperthermia: Denies - Medical History Cardiovascular: reports: None Pulmonary: reports: Sleep apnea Gastrointestinal: reports: GERD, Ulcers, Diverticulitis Urinary: reports: None Neuro: reports: None Musculoskeletal: reports: Osteoarthritis Endocrine/Autoimmune: reports: HyPOthyroidism Blood Disorders: reports: Anemia Skin: reports: None Smoking Status: Never smoker - Surgical History General: Cholecystectomy, Colonoscopy, EGD Eyes Ears Nose Throat (EENT): Cataracts, Tonsil/Adenoidectomy Gynecologic: Hysterectomy Dermatologic: Skin cancer surgery Exam General: Alert, Oriented x3, Cooperative, No acute distress Dental: WNL Mouth Openin Fingerbreadth Neck Mobility: Normal Mallampati classification: III Thyromental Distance: less than 4 cm Respiratory: Lungs clear, Normal breath sounds, No respiratory distress, No accessory muscle use Cardiovascular: Regular rate, Normal S1, Normal S2, No murmurs Plan Anesthesia Type: General, Total IV Consent for Procedure(s) Verified and Reviewed: Yes Code Status: Attempt Resuscitation ASA classification: 2-Mild systemic disease Is this case an emergency?: No
[2020-03-08] MEDS ORDERED: PROPOFOL 500 MG/50 ML 500 MG/50 ML VIAL ONE (09:40)
[2020-03-08] MEDS ORDERED: LIDOCAINE-MPF 2% 5 ML VIAL ONE (09:40)
[2020-03-08] MEDS ORDERED: KETAMINE 500 MG/10 ML VIAL ONE (09:45)
[2020-03-08] MEDS ORDERED: LACTATED RINGERS 1,000 ML IV SCH (10:00)
[2020-03-08 11:49] VITALS: BP 126/60
--- NOTE | 2020-03-08 15:00 | ANESTHESIA POST OP EVALUATION ---
Anesthesia Post Eval - Post Anesthesia Eval Vitals: Last Vital Signs Temp 36.0 C L 03/08/20 11:10 Pulse 74 03/08/20 11:45 Resp 15 03/08/20 11:45 BP 126/60 03/08/20 11:45 Pulse Ox 95 03/08/20 11:45 CV Function Including HR & BP: positive: Stable Pain Control: positive: Satisfactory Nausea & Vomiting: positive: Negative Mental Status: positive: Baseline Respiratory Status: Airway Patent Hydration Status: Satisfactory
== END 2020-03-08 08:19 | disposition home or self-care (01) ==
LOC: SDS 08:18
PROVIDERS: ATTEND Surgery
PROC: 0DBB8ZX Excision of Ileum, Via Natural or Artificial Opening Endoscopic, Diagnostic (ICD-10-PCS; 2020-03-08)
PROC: 0DBF8ZX Excision of Right Large Intestine, Via Natural or Artificial Opening Endoscopic, Diagnostic (ICD-10-PCS; 2020-03-08)
PROC: 0DBN8ZZ Excision of Sigmoid Colon, Via Natural or Artificial Opening Endoscopic (ICD-10-PCS; principal; 2020-03-08 09:15)
DX: D12.5 Benign neoplasm of sigmoid colon (principal); K57.31 Diverticulosis of large intestine without perforation or abscess with bleeding; D50.9 Iron deficiency anemia, unspecified; G47.33 Obstructive sleep apnea (adult) (pediatric); K21.9 Gastro-esophageal reflux disease without esophagitis; E03.9 Hypothyroidism, unspecified; I49.9 Cardiac arrhythmia, unspecified; K44.9 Diaphragmatic hernia without obstruction or gangrene; F32.9 Major depressive disorder, single episode, unspecified; N26.1 Atrophy of kidney (terminal); Z87.11 Personal history of peptic ulcer disease; Z79.52 Long term (current) use of systemic steroids; Z79.899 Other long term (current) drug therapy
CPT/HCPCS: 45380; 45385; J7120

== ENCOUNTER 2020-03-21 10:57 | Outpatient (CLI) | payer MEDICARE, OTHER ==
[2020-03-21 11:45] LABS: BASOPHILS % (AUTO) 0.5 %; EOSINOPHILS # (AUTO) 0.6 10^3/uL (0.0-0.7); EOSINOPHILS % (AUTO) 7.3 %; HGB - HEMOGLOBIN 13.7 g/dL (12.0-16.0); LYMPHOCYTES # (AUTO) 1.3 10^3/uL (1.5-3.5); LYMPHOCYTES % (AUTO) 16.6 %; MEAN CORPUSCULAR HEMOGLOBIN 28.1 pg (27.0-31.0); MEAN CORPUSCULAR HGB CONC 31.2 g/dL (32.0-36.0); MEAN PLATELET VOLUME 9.5 fL (7.9-10.8); MONOCYTES # (AUTO) 0.6 10^3/uL (0.0-1.0); NEUTROPHILS # (AUTO) 5.3 10^3/uL (1.5-6.6); PLT - PLATELET COUNT 359 10^3/uL (130-450); RED BLOOD COUNT 4.88 10^6/uL (4.20-5.40); RED CELL DISTRIBUTION WIDTH 15.7 % (12.0-15.0); WHITE BLOOD COUNT 7.8 x10^3/uL (4.8-10.8)
[2020-03-21 11:58] LABS: ALBUMIN 3.8 g/dL (3.2-5.5); BILIRUBIN,TOTAL 0.2 mg/dL (0.2-1.0); CALCIUM 9.4 mg/dL (8.5-10.3); CREATININE 0.7 mg/dL (0.4-1.0); TOTAL PROTEIN 7.5 g/dL (6.7-8.2)
== END 2020-03-21 10:58 | disposition home or self-care (01) ==
LOC: LAB 10:57
PROVIDERS: ATTEND Surgery
DX: D50.0 Iron deficiency anemia secondary to blood loss (chronic) (principal)
CPT/HCPCS: 36415; 80053; 85025

== ENCOUNTER 2020-05-20 20:36 | Emergency (ER) | payer MEDICARE, OTHER ==
[2020-05-20] MEDS ORDERED: SODIUM CHLORIDE 0.9% 1,000 ML IV STA ×2 (20:50→21:31)
[2020-05-20 21:07] LABS: BASOPHILS % (AUTO) 0.3 %; EOSINOPHILS # (AUTO) 0.1 10^3/uL (0.0-0.7); EOSINOPHILS % (AUTO) 0.6 %; HCT - HEMATOCRIT 42.6 % (37.0-47.0); HGB - HEMOGLOBIN 13.8 g/dL (12.0-16.0); LYMPHOCYTES # (AUTO) 0.7 10^3/uL (1.5-3.5); LYMPHOCYTES % (AUTO) 6.3 %; MEAN CORPUSCULAR HGB CONC 32.4 g/dL (32.0-36.0); MEAN CORPUSCULAR VOLUME 86.6 fL (81.0-99.0); MEAN PLATELET VOLUME 9.7 fL (7.9-10.8); MONOCYTES # (AUTO) 1.3 10^3/uL (0.0-1.0); MONOCYTES % (AUTO) 11.3 %; NEUTROPHILS # (AUTO) 9.4 10^3/uL (1.5-6.6); NEUTROPHILS % (AUTO) 81.1 %; PLT - PLATELET COUNT 263 10^3/uL (130-450); RED BLOOD COUNT 4.92 10^6/uL (4.20-5.40); RED CELL DISTRIBUTION WIDTH 14.9 % (12.0-15.0); WHITE BLOOD COUNT 11.6 x10^3/uL (4.8-10.8)
--- NOTE | 2020-05-20 21:11 | ED Physician Documentation ---
PD HPI FEMALE - Stated complaint Stated Complaint: F - Chief complaint Chief Complaint: Abd Pain - History obtained from History obtained from: Patient - History of Present Illness Timing - onset: How many days ago (2) Timing - duration: Days Timing - details: Gradual onset Pain level max: 1 Associated symptoms: Urinary frequency. No: Fever, Abdominal pain (denies abdominal pain on my HPI/ROS) Similar symptoms before: Diagnosis (UTI) Recently seen: Clinic - Additional information Additional information: patient says she is here tonight because "I just feel horrible". Asked to elaborate, she can only tell me variations on generalized malaise ("I feel terrible", "I feel so awful", per patient). She says she has had urinary frequency for several days, was evaluated by PMD on Saturday and filled an rx for cefdinir yesterday. She says she has taken three doses of this BID prescription but has generalized malaise , fatigue, poor appetite. I note that the rx was filled for 20 tablets and after 2 counts I note there are 18 remaining. Denies fever Review of Systems Constitutional: reports: Fatigue. denies: Fever, Chills, Sweats Cardiac: reports: Reviewed and negative Respiratory: reports: Reviewed and negative GI: denies: Abdominal Pain, Nausea, Vomiting, Constipation, Diarrhea : reports: Dysuria, Frequency Neurologic: reports: Generalized weakness. denies: Focal weakness, Numbness, Headache PD PAST MEDICAL HISTORY - Past Medical History Past Medical History: Yes Cardiovascular: None Respiratory: Sleep apnea Neuro: None Endocrine/Autoimmune: HyPOthyroidism GI: GERD, Ulcers, Diverticulitis : None HEENT: Chronic vision loss, Chronic hearing loss Psych: Depression Musculoskeletal: Osteoarthritis Derm: None - Past Surgical History Past Surgical History: Yes General: Cholecystectomy, Colonoscopy, EGD /MANUFACTURING ELECTRICIAN: Hysterectomy HEENT: Cataracts, Tonsil/Adenoidectomy Derm: Skin cancer surgery - Present Medications Home Medications: Ambulatory Orders Medication Instructions Recorded Confirmed Levothyroxine Sodium 50 mcg ORAL QDAC 10/07/17 05/20/20 Omeprazole [PriLOSEC] 20 mg ORAL BID 10/07/17 05/20/20 PARoxetine HCl [Paxil] 10 mg ORAL DAILY 10/07/17 05/20/20 Ibuprofen/Diphenhydramine Cit 1 each PO QPM PRN 03/07/20 05/20/20 [Ibuprofen Pm Caplet] - Allergies Allergies/Adverse Reactions: Allergies Allergy/AdvReac Type Severity Reaction Status Date / Time prochlorperazine edisylate * Allergy Hives Verified 05/20/20 20:40 [From Compazine] prochlorperazine maleate * Allergy Hives Verified 05/20/20 20:40 [From Compazine] Sulfa (Sulfonamide Allergy not known Verified 05/20/20 20:40 Antibiotics) sulfamethoxazole Allergy not known Verified 05/20/20 20:40 [From Septra] trimethoprim [From Septra] Allergy not known Verified 05/20/20 20:40 - Social History Does the pt smoke?: No Smoking Status: Never smoker Does the pt drink ETOH?: Yes Does the pt have substance abuse?: Yes - Immunizations Immunizations are current?: Yes - POLST Patient has POLST: No PD ED PE NORMAL - Vitals Vital signs reviewed: Yes - General General: Alert and oriented X 3, No acute distress, Well developed/nourished - Neck Neck: Supple, no meningeal sign - Cardiac Cardiac: RRR, No murmur - Respiratory Respiratory: No respiratory distress, Clear bilaterally - Abdomen Abdomen: Normal bowel sounds, Soft, Non tender, Non distended - Back Back: No CVA TTP - Derm Derm: Normal color PD ED PE EXPANDED - HEENT HEENT: Dry mucous membranes Results - Vitals Vitals: Vital Signs - 24 hr 05/20/20 05/20/20 05/20/20 20:40 20:44 22:51 Temperature 36.9 C 36.9 C 37.3 C Heart Rate 89 87 81 Respiratory 18 20 24 Rate Blood Pressure 110/57 L 122/56 L 112/44 L O2 Saturation 94 93 94 05/21/20 05/21/20 00:00 00:48 Temperature 36.7 C Heart Rate 79 73 Respiratory 18 18 Rate Blood Pressure 112/53 L 110/49 L O2 Saturation 93 97 Oxygen O2 Source Room air - Labs Labs: Laboratory Tests 05/20/20 05/20/20 05/20/20 21:01 21:01 23:30 WBC 11.6 H RBC 4.92 Hgb 13.8 Hct 42.6 MCV 86.6 MCH 28.0 MCHC 32.4 RDW 14.9 Plt Count 263 MPV 9.7 Neut # (Auto) 9.4 H Lymph # (Auto) 0.7 L Reeves # (Auto) 1.3 H Eos # (Auto) 0.1 Baso # (Auto) 0.0 Absolute Nucleated RBC 0.00 Nucleated RBC % 0.0 Sodium 136 Potassium 3.9 Chloride 99 L Carbon Dioxide 25 Anion Gap 12.0 BUN 34 H Creatinine 1.0 Estimated GFR (MDRD) 53 L Glucose 149 H Calcium 8.9 Total Bilirubin 0.6 AST 20 ALT 19 Alkaline Phosphatase 75 Total Protein 7.9 Albumin 3.5 Globulin 4.4 H Albumin/Globulin Ratio 0.8 L Lipase 28 Urine Color YELLOW Urine Clarity SL. CLOUDY Urine pH 6.0 Ur Specific [place] 1.015 Urine Protein 30 H Urine Glucose (UA) NEGATIVE Urine Ketones 15 H Urine Occult Blood SMALL H Urine Nitrite NEGATIVE Urine Bilirubin NEGATIVE Urine Urobilinogen 0.2 (NORMAL) Ur Leukocyte Esterase MODERATE H Urine RBC 0-5 Urine WBC >25 H Ur Squamous Epith Cells NONE SEEN Urine Bacteria Few Ur Microscopic Review INDICATED Urine Culture Comments INDICATED PD MEDICAL DECISION MAKING - ED course Complexity details: reviewed results, re-evaluated patient, considered differential, d/w patient ED course: On reevaluation after tests resulted and 2 liters IV NS infused, patient reports feeling much improved. Blood tests are without remarkable findings although notable for bun/creatinine of 34/1.0 which would be c/w dehydration (in HPI, she reported poor appetite and resulting decreased PO intake over past 2 days). Her urinalysis is c/w UTI; she is given 1 gram IV Rocephin prior to d/c, instructed to finish the prescribed antibiotic as per label instructions. Departure - Departure Disposition: 01 Home, Self Care Clinical Impression: Dehydration UTI (urinary tract infection) Qualifiers: Urinary tract infection type: acute cystitis Hematuria presence: without hematuria Qualified Code(s): N30.00 - Acute cystitis without hematuria Condition: Good Instructions: ED Dehydration, ED UTI Cystitis Female Follow-Up: NICKOLAS BARRIOS ARNP [Primary Care Provider] - Comments: Finish the antibiotic as directed Discharge Date/Time: 05/21/20 01:01
[2020-05-20 21:21] LABS: ALBUMIN 3.5 g/dL (3.2-5.5); ALBUMIN/GLOBULIN RATIO 0.8 (1.0-2.2); BILIRUBIN,TOTAL 0.6 mg/dL (0.2-1.0); CALCIUM 8.9 mg/dL (8.5-10.3); POTASSIUM 3.9 mmol/L (3.5-5.0); TOTAL PROTEIN 7.9 g/dL (6.7-8.2)
[2020-05-20 23:36] LABS: BILIRUBIN,URINE NEGATIVE (NEGATIVE); GLUCOSE, URINE (UA) NEGATIVE (NEGATIVE); KETONES,URINE (UA) 15 mg/dL (NEGATIVE); LEUKOCYTE ESTERASE, URINE MODERATE (NEGATIVE); NITRITE,URINE NEGATIVE (NEGATIVE); OCCULT BLOOD,URINE SMALL (NEGATIVE); PROTEIN,URINE 30 mg/dL (NEGATIVE); UROBILINOGEN,URINE 0.2 (NORMAL) E.U./dL (NORMAL)
[2020-05-20 23:37] LABS: CLARITY,URINE SL. CLOUDY (CLEAR)
[2020-05-20 23:42] LABS: BACTERIA,URINE Few /HPF (None Seen); RBC,URINE 0-5 /HPF (0-5); SQUAMOUS EPITHELIAL CELL,UR NONE SEEN (<= Few); WBC,URINE >25 /HPF (0-5)
[2020-05-20] MEDS ORDERED: cefTRIAXone 1 GM in SODIUM CHLORIDE 0.9% MINIBAG 100 ML IV STA (23:54)
[2020-05-21] MEDS ORDERED: cefTRIAXone 1 GM VIAL ONE (00:09)
[2020-05-21 00:48] VITALS: BP 110/49
--- OUTSIDE RECORDS SUMMARY | 2020-05-25 02:22 | EXTERNAL MEDICAL SUMMARY RPT | Continuity of Care Document ---
:1935 Demographics Phone Unavailable Preferred Language Unknown Marital Status Unknown [employer] Affiliation Unknown Race Unknown Ethnic Group Unknown Author Organization [facility] Address [address] [place] [address] Phone Social History date description facility [phone]
== END 2020-05-21 01:01 | disposition home or self-care (01) ==
LOC: ED 20:36
DX: E86.0 Dehydration (principal); N30.00 Acute cystitis without hematuria
CPT/HCPCS: 36415; 80053; 81001; 81003; 83690; 85025; 87086; 96361; 96365; 99284

== ENCOUNTER 2020-10-27 12:19 | Outpatient (CLI) | payer MEDICARE, OTHER ==
[2020-10-27 12:35] LABS: BASOPHILS # (AUTO) 0.1 10^3/uL (0.0-0.1); BASOPHILS % (AUTO) 0.6 %; EOSINOPHILS # (AUTO) 0.4 10^3/uL (0.0-0.7); EOSINOPHILS % (AUTO) 4.6 %; HCT - HEMATOCRIT 47.7 % (37.0-47.0); LYMPHOCYTES # (AUTO) 1.4 10^3/uL (1.5-3.5); LYMPHOCYTES % (AUTO) 15.9 %; MEAN CORPUSCULAR HEMOGLOBIN 28.5 pg (27.0-31.0); MEAN CORPUSCULAR HGB CONC 31.4 g/dL (32.0-36.0); MEAN CORPUSCULAR VOLUME 90.5 fL (81.0-99.0); MEAN PLATELET VOLUME 9.7 fL (7.9-10.8); MONOCYTES # (AUTO) 0.8 10^3/uL (0.0-1.0); MONOCYTES % (AUTO) 9.4 %; NEUTROPHILS # (AUTO) 6.1 10^3/uL (1.5-6.6); NEUTROPHILS % (AUTO) 68.6 %; PLT - PLATELET COUNT 358 10^3/uL (130-450); RED BLOOD COUNT 5.27 10^6/uL (4.20-5.40); WHITE BLOOD COUNT 8.9 x10^3/uL (4.8-10.8)
[2020-10-27 12:58] LABS: ALBUMIN 3.9 g/dL (3.2-5.5); BILIRUBIN,TOTAL 0.4 mg/dL (0.2-1.0); CALCIUM 9.5 mg/dL (8.5-10.3); CREATININE 0.9 mg/dL (0.4-1.0); POTASSIUM 4.2 mmol/L (3.5-5.0); TOTAL PROTEIN 7.8 g/dL (6.7-8.2)
== END 2020-10-27 12:20 | disposition home or self-care (01) ==
LOC: LAB 12:19
PROVIDERS: ATTEND Surgery
DX: D50.0 Iron deficiency anemia secondary to blood loss (chronic) (principal)
CPT/HCPCS: 36415; 80053; 82728; 85025

== ENCOUNTER 2021-01-16 13:45 | Outpatient (CLI) | payer MEDICARE, OTHER ==
--- NOTE | 2021-01-17 08:19 | Mammography Report ---
BILATERAL DIGITAL SCREENING MAMMOGRAM 3D/2D: 01/16/2021 CLINICAL: Routine screening. Comparison is made to exams dated: 12/23/2019 mammogram, 05/29/2018 mammogram, 11/26/2016 mammogram, 05/20/2014 mammogram, 04/01/2013 mammogram, and 02/23/2011 mammogram - [facility]. There are scattered fibroglandular elements in both breasts. There are benign post operative findings in the left breast. No significant masses, calcifications, or other findings are seen in either breast. There has been no significant interval change. IMPRESSION: BENIGN There is no mammographic evidence of malignancy. A 1 year screening mammogram is recommended. This exam was interpreted at Station ID: [id number]. NOTE: For mammograms, a report in lay terms will be sent to the patient. Approximately 15% of breast malignancies will not be visualized mammographically. In the management of a palpable breast mass, a negative mammogram must not discourage biopsy of a clinically suspicious lesion. Electronically Signed By: Nikita Toro M.D. ddroyal/nay:01/16/2021 14:55:39 ACR BI-RADS Category 2: Benign Finding(s) 3342F PARENCHYMAL PATTERN: (A) - The breast(s) demonstrate(s) scattered fibroglandular densities. BI-RADS CATEGORY: (2) - 2 RECOMMENDATION: (ANNUAL) - Recommend routine annual screening mammography. [id number] 1 year screening LATERALITY: (B)
== END 2021-01-16 13:46 | disposition home or self-care (01) ==
LOC: DI 13:45
DX: Z12.31 Encounter for screening mammogram for malignant neoplasm of breast (principal)

== ENCOUNTER 2021-04-11 08:07 | Day surgery (SDC) | payer MEDICARE, OTHER ==
[2021-04-11] MEDS ORDERED: LACTATED RINGERS 1,000 ML IV ONE (08:31)
--- NOTE | 2021-04-11 09:19 | ANESTHESIA ---
Pre-Anesthesia VS, & Labs - Diagnosis chronic iron deficiency, history of upper gi bleed. - Procedure EGD Vital Signs: Temp Pulse Resp BP Pulse Ox 37.1 C 87 19 126/77 96 04/11/21 08:24 04/11/21 08:24 04/11/21 08:24 04/11/21 08:24 04/11/21 08:24 Height: 5 ft 5 in Weight (kg): 63.4 kg Body Mass Index: 23.2 BMI Classification: Healthy weight - NPO >8 hours - Is Patient ?: No Home Medications and Allergies Home Medications: Ambulatory Orders Omeprazole Magnesium 20 mg PO DAILY 04/11/21 Levothyroxine Sodium 50 mcg ORAL QDAC 10/07/17 PARoxetine HCl [Paxil] 10 mg ORAL DAILY 10/07/17 Omeprazole Magnesium 20 mg PO DAILY 04/11/21 Allergies/Adverse Reactions: Allergies Allergy/AdvReac Type Severity Reaction Status Date / Time prochlorperazine edisylate * Allergy Hives Verified 05/20/20 20:40 [From Compazine] prochlorperazine maleate * Allergy Hives Verified 05/20/20 20:40 [From Compazine] Sulfa (Sulfonamide Allergy not known Verified 05/20/20 20:40 Antibiotics) sulfamethoxazole Allergy not known Verified 05/20/20 20:40 [From Septra] trimethoprim [From Septra] Allergy not known Verified 05/20/20 20:40 Anes History & Medical History - Anesthetic History Anesthesia Complications: reports: No previous complications (reports she was slow to wake up after her last EGD. Would like to avoid ketamine) - Medical History Cardiovascular: reports: None Pulmonary: reports: Sleep apnea (does not use cpap) Gastrointestinal: reports: GERD, Ulcers, Diverticulitis Urinary: reports: None Neuro: reports: None Musculoskeletal: reports: Osteoarthritis Endocrine/Autoimmune: reports: HyPOthyroidism Blood Disorders: reports: Anemia Skin: reports: None Smoking Status: Never smoker Psychosocial: reports: No issues indicated History of Cancer?: No - Surgical History General: reports: Cholecystectomy, Colonoscopy, EGD Eyes Ears Nose Throat (EENT): reports: Cataracts, Tonsil/Adenoidectomy Gynecologic: reports: Hysterectomy Dermatologic: reports: Skin cancer surgery Exam General: Alert, Oriented x3, Cooperative, No acute distress Dental: WNL Mouth Openin Fingerbreadth Neck Mobility: Normal Mallampati classification: IV Thyromental Distance: less than 4 cm Mental/Cognitive Status: Alert/Oriented X3, Normal for patient Plan Anesthesia Type: General, Total IV Consent for Procedure(s) Verified and Reviewed: Yes Code Status: Attempt Resuscitation ASA classification: 2-Mild systemic disease Is this case an emergency?: No
[2021-04-11] MEDS ORDERED: LIDOCAINE TOPICAL 4% 50 ML BOTTLE ONE (09:58)
[2021-04-11] MEDS ORDERED: MIDAZOLAM 2 MG/2 ML VIAL ONE (10:01)
[2021-04-11] MEDS ORDERED: PROPOFOL 200 MG/20 ML VIAL IVP ONE (10:01)
[2021-04-11] MEDS ORDERED: LACTATED RINGERS 300 ML IV ONE (10:24)
--- NOTE | 2021-04-11 10:36 | ANESTHESIA POST OP EVALUATION ---
Anesthesia Post Eval - Post Anesthesia Eval Vitals: Last Vital Signs Temp 37.1 C 04/11/21 10:24 Pulse 98 04/11/21 10:32 Resp 20 04/11/21 10:32 BP 142/85 H 04/11/21 10:32 Pulse Ox 93 04/11/21 10:32 CV Function Including HR & BP: Stable Pain Control: Satisfactory Nausea & Vomiting: Negative Mental Status: Baseline Respiratory Status: Airway Patent Hydration Status: Satisfactory Anesthesia Complications: None
[2021-04-11 11:14] VITALS: BP 138/65
== END 2021-04-11 08:08 | disposition home or self-care (01) ==
LOC: SDS 08:07
PROVIDERS: ATTEND Surgery
PROC: 0DB78ZX Excision of Stomach, Pylorus, Via Natural or Artificial Opening Endoscopic, Diagnostic (ICD-10-PCS; 2021-04-11)
PROC: 0DB88ZX Excision of Small Intestine, Via Natural or Artificial Opening Endoscopic, Diagnostic (ICD-10-PCS; 2021-04-11)
PROC: 0DB58ZX Excision of Esophagus, Via Natural or Artificial Opening Endoscopic, Diagnostic (ICD-10-PCS; 2021-04-11)
PROC: 0DB98ZX Excision of Duodenum, Via Natural or Artificial Opening Endoscopic, Diagnostic (ICD-10-PCS; principal; 2021-04-11 09:00)
DX: D50.9 Iron deficiency anemia, unspecified (principal); K29.50 Unspecified chronic gastritis without bleeding; K21.9 Gastro-esophageal reflux disease without esophagitis; K44.9 Diaphragmatic hernia without obstruction or gangrene; G47.33 Obstructive sleep apnea (adult) (pediatric); Z87.19 Personal history of other diseases of the digestive system
CPT/HCPCS: 43239; J7120

== ENCOUNTER 2021-06-07 16:25 | Outpatient (CLI) | payer MEDICARE, OTHER ==
--- NOTE | 2021-06-13 13:38 | XRAY Report ---
PROCEDURE: Knee 3 View BILAT INDICATIONS: BILATERAL KNEE PAIN TECHNIQUE: 3 views of the bilateral knee(s) were acquired. COMPARISON: None. FINDINGS: Bones: No acute fractures or dislocations. No suspicious bony lesions. Tricompartmental degenerati ve changes of the bilateral knee with medial compartment joint space narrowing bilaterally. Soft tissues: Small bilateral joint effusions. No suspicious soft tissue calcifications. IMPRESSION: Bilateral knee without acute fracture or dislocation. Tricompartmental osteoarthrosis of the bilateral knee with medial femorotibial compartment joint space narrowing. Reviewed by: Mahesh Luna MD on 06/08/2021 8:26 AM PDT Approved by: Mahesh Luna MD on 06/08/2021 8:26 AM PDT Station ID: [id number]
== END 2021-06-07 16:26 | disposition home or self-care (01) ==
LOC: DI 16:25
PROVIDERS: ATTEND Nurse Practitioner Family
DX: M17.0 Bilateral primary osteoarthritis of knee (principal)

== ENCOUNTER 2021-06-23 12:49 | Outpatient (CLI) | payer MEDICARE, OTHER ==
[2021-06-23 14:55] LABS: BASOPHILS % (AUTO) 0.1 %; HCT - HEMATOCRIT 44.3 % (37.0-47.0); HGB - HEMOGLOBIN 14.1 g/dL (12.0-16.0); LYMPHOCYTES # (AUTO) 0.7 10^3/uL (1.5-3.5); LYMPHOCYTES % (AUTO) 3.8 %; MEAN CORPUSCULAR HEMOGLOBIN 26.5 pg (27.0-31.0); MEAN CORPUSCULAR HGB CONC 31.8 g/dL (32.0-36.0); MEAN CORPUSCULAR VOLUME 83.3 fL (81.0-99.0); MEAN PLATELET VOLUME 10.4 fL (7.9-10.8); MONOCYTES # (AUTO) 1.2 10^3/uL (0.0-1.0); MONOCYTES % (AUTO) 6.3 %; NEUTROPHILS % (AUTO) 89.2 %; PLT - PLATELET COUNT 460 10^3/uL (130-450); RED BLOOD COUNT 5.32 10^6/uL (4.20-5.40); RED CELL DISTRIBUTION WIDTH 14.7 % (12.0-15.0); WHITE BLOOD COUNT 19.1 x10^3/uL (4.8-10.8)
[2021-06-23 15:06] LABS: % IRON SATURATION 10 % (20-50); ALBUMIN 3.9 g/dL (3.2-5.5); ALBUMIN/GLOBULIN RATIO 0.9 (1.0-2.2); ALKALINE PHOSPHATASE 72 IU/L (42-121); ALT ALANINE AMINOTRANSFERASE 18 IU/L (10-60); AST ASPARTATE AMINOTRANSFERASE 22 IU/L (10-42); BILIRUBIN,TOTAL < 0.2 mg/dL (0.2-1.0); BUN - BLOOD UREA NITROGEN 32 mg/dL (6-20); CALCIUM 9.4 mg/dL (8.5-10.3); CARBON DIOXIDE - CO2 26 mmol/L (21-32); CHLORIDE 103 mmol/L (101-111); CREATININE 0.8 mg/dL (0.4-1.0); GFR - MDRD 68 (>89); GLUCOSE 98 mg/dL (70-100); IRON 38 ug/dL (28-170); POTASSIUM 4.4 mmol/L (3.5-5.0); SODIUM 141 mmol/L (135-145); TOTAL IRON BINDING CAPACITY 370 ug/dL (250-450); TOTAL PROTEIN 8.2 g/dL (6.7-8.2); TRANSFERRIN 264 mg/dL (192-382)
[2021-06-23 15:43] LABS: THYROID STIMULATING HORMONE 0.55 uIU/mL (0.34-5.60)
[2021-06-23 15:54] LABS: FOLATE 20.65 ng/mL (5.90 - >24.8)
== END 2021-06-23 12:50 | disposition home or self-care (01) ==
LOC: LAB.S 12:49
PROVIDERS: ATTEND Nurse Practitioner Family
DX: R53.83 Other fatigue (principal); D50.9 Iron deficiency anemia, unspecified
CPT/HCPCS: 36415; 80053; 82607; 82746; 83540; 84443; 84466; 85025

== ENCOUNTER 2022-02-13 11:05 | Outpatient (CLI) | payer MEDICARE, OTHER ==
--- NOTE | 2022-02-14 10:41 | Mammography Report ---
BILATERAL DIGITAL SCREENING MAMMOGRAM 3D/2D: 02/13/2022 CLINICAL: Routine screening. Family history of breast cancer. No prior exams were available for comparison. There are scattered areas of fibroglandular density in both breasts (category b / 25%-50% glandular t issue). There are benign calcifications in both breasts. There also are benign post operative findings in th e left breast. No significant masses, calcifications, or other findings are seen in either breast. IMPRESSION: BENIGN There is no mammographic evidence of malignancy. A 1 year screening mammogram is recommended. This exam was interpreted at Station ID: [id number]. NOTE: For mammograms, a report in lay terms will be sent to the patient. Approximately 15% of breast malignancies will not be visualized mammographically. In the management of a palpable breast mass, a negative mammogram must not discourage biopsy of a clinically suspicious lesion. Electronically Signed By: Emmanuel Golden M.D. acr/penrad:02/13/2022 12:23:58 ACR BI-RADS Category 2: Benign Finding(s) 3342F PARENCHYMAL PATTERN: (A) - The breast(s) demonstrate(s) scattered fibroglandular densities. BI-RADS CATEGORY: (2) - 2 RECOMMENDATION: (ANNUAL) - Recommend routine annual screening mammography. [id number] 1 year screening LATERALITY: (B)
== END 2022-02-13 11:06 | disposition home or self-care (01) ==
LOC: DI.S 11:05
DX: Z12.31 Encounter for screening mammogram for malignant neoplasm of breast (principal); Z80.3 Family history of malignant neoplasm of breast

== ENCOUNTER 2022-02-14 07:26 | Outpatient (CLI) | payer MEDICARE, OTHER ==
[2022-02-14] MEDS ORDERED: LACTATED RINGERS 1,000 ML IV ONE (07:55)
[2022-02-14] MEDS ORDERED: DIATRIZOATE MEGLU/DIATRIZO SOD 30 ML BOTTLE PO ONE (07:57)
[2022-02-14 08:16] LABS: HCT - HEMATOCRIT 40.3 % (37.0-47.0); HGB - HEMOGLOBIN 12.8 g/dL (12.0-16.0)
[2022-02-14 08:43] LABS: PT - PROTHROMBIN TIME 11.5 secs (9.9-12.6)
[2022-02-14] MEDS ORDERED: LIDOCAINE-MPF 1% 5 ML VIAL ONE (08:46)
[2022-02-14 08:50] LABS: PARTIAL THROMBOPLASTIN TIME 28.9 secs (24.9-33.3)
[2022-02-14] MEDS ORDERED: fentaNYL 100 MCG/2 ML VIAL ONE (09:05)
[2022-02-14] MEDS ORDERED: MIDAZOLAM 2 MG/2 ML VIAL ONE (09:05)
[2022-02-14] MEDS ORDERED: LACTATED RINGERS 500 ML IV ONE (10:09)
[2022-02-14 13:23] VITALS: BP 137/55
--- NOTE | 2022-02-14 13:24 | CT Report ---
PROCEDURE: Retroperitoneal Mass BX Sedation analgesia time: See nursing report INDICATIONS: COLON CA TECHNIQUE: The indications, alternatives, benefits, risks, and possible complications of the procedure were comm unicated to the patient. Informed written consent from the patient was obtained and placed in the art. Continuous EKG and hemodynamic monitoring was started by trained personnel. For radiation dose reduction, the following was used: automated exposure control, adjustment of mA and/or kV according to patient size. The patient was brought to the CT suite and video camera operator spiral CT imaging was performed with localization g rid. The appropriate site for percutaneous access to the biopsy target was marked, was prepped and d raped sterilely, and was infused with local anaesthesia. Under CT guidance, a core biopsy trocar and needle set was advanced to the biopsy target, and specimen(s) were obtained. The trocar and needle were then removed, and the patient was sent for post-procedure monitoring. COMPARISON: 01/29/2022 FINDINGS: Biopsy site: Left upper quadrant mass Needle: 18 gauge biopsy needle with introducer trocar. Number of passes: 3 Medications: 1% lidocaine for local anaesthesia. Moderate sedation via IV. Complications: None. IMPRESSION: Successful CT-guided biopsy of left upper quadrant mass.. Reviewed by: Florentin Marcus MD on 02/14/2022 1:23 PM PST Approved by: Florentin Marcus MD on 02/14/2022 1:23 PM PST Station ID: [id number]
--- NOTE | 2022-02-14 13:31 | CT Report ---
PROCEDURE: ABDOMEN/PELVIS WO INDICATIONS: Post Abdominal abcess Bx scan TECHNIQUE: Noncontrast 5 mm thick sections acquired from the diaphragms to the symphysis. 5 mm coronal and sagi ttal reformats were then performed. For radiation dose reduction, the following was used: automated exposure control, adjustment of mA and/or kV according to patient size. COMPARISON: Same-day CT biopsy FINDINGS: Image quality: Good Lower chest: Large hiatal hernia. Solid organs: Limited noncontrast CT without gross abnormality. Right lobe liver lesion again seen. L eft renal atrophy again seen. Bladder diverticula. Vessels and lymph nodes: No abdominal aortic aneurysm. Mesenteric masses described below Bowel and peritoneum: Left upper quadrant mass postbiopsy without new hemorrhage or pneumoperitoneum. There is also a sigmoid related mass in the pelvis. Colonic diverticula are present. Body wall: Unremarkable Pelvis: Hysterectomy Bones: No acute or suspicious osseous lesion. Scattered degenerative changes. IMPRESSION: Limited noncontrast CT post biopsy without unexpected pneumoperitoneum or hemoperitoneum. Successful left upper quadrant mass biopsy. Reviewed by: Florentin Marcus MD on 02/14/2022 1:30 PM PST Approved by: Florentin Marcus MD on 02/14/2022 1:30 PM PST Station ID: [id number]
== END 2022-02-14 07:27 | disposition home or self-care (01) ==
LOC: DI 07:26
PROVIDERS: ATTEND Internal Medicine Hematology & Oncology
DX: C18.6 Malignant neoplasm of descending colon (principal); C78.6 Secondary malignant neoplasm of retroperitoneum and peritoneum
CPT/HCPCS: 36415; 49180; 77012; 85014; 85018; 85049; 85610; 85730; J7120; Q9963

== ENCOUNTER 2022-03-02 07:00 | Outpatient (CLI) | payer MEDICARE, OTHER | END 2022-03-02 23:59 | disposition home or self-care (01) | LOC: LAB.S 07:00 | PROVIDERS: ATTEND Registered Nurse | DX: R35.0 Frequency of micturition (principal) | CPT/HCPCS: 87077; 87086; 87181 ==

== ENCOUNTER 2022-03-11 11:47 | Emergency (ER) | payer MEDICARE, OTHER ==
[2022-03-11 12:21] LABS: BASOPHILS # (AUTO) 0.1 10^3/uL (0.0-0.1); BASOPHILS % (AUTO) 0.6 %; EOSINOPHILS # (AUTO) 0.1 10^3/uL (0.0-0.7); EOSINOPHILS % (AUTO) 0.9 %; HCT - HEMATOCRIT 39.1 % (37.0-47.0); HGB - HEMOGLOBIN 12.3 g/dL (12.0-16.0); LYMPHOCYTES # (AUTO) 0.9 10^3/uL (1.5-3.5); LYMPHOCYTES % (AUTO) 8.3 %; MEAN CORPUSCULAR HEMOGLOBIN 27.8 pg (27.0-31.0); MEAN CORPUSCULAR HGB CONC 31.5 g/dL (32.0-36.0); MEAN CORPUSCULAR VOLUME 88.5 fL (81.0-99.0); MONOCYTES % (AUTO) 9.1 %; NEUTROPHILS % (AUTO) 80.3 %; PLT - PLATELET COUNT 417 10^3/uL (130-450); RED BLOOD COUNT 4.42 10^6/uL (4.20-5.40); RED CELL DISTRIBUTION WIDTH 13.6 % (12.0-15.0); WHITE BLOOD COUNT 11.3 x10^3/uL (4.8-10.8)
--- OUTSIDE RECORDS SUMMARY | 2022-03-11 12:24 | EXTERNAL MEDICAL SUMMARY RPT | Continuity of Care Document ---
:1935 Author Organization [facility] Address [address] [place] [address] Phone Care Team Providers Name Role Phone Unavailable Unavailable Unavailable [place] Patient Registrar, Jessie Unavailable Unavai lable Guille Local City Driver,Wind Development Director, Woody Unavailable Unavailable [place] Patient Registrar, Jessie Unavailable Unavai lable Strem[facility] Patient Registrar, Jessie Unavailable Unavai lable Devang, Provider Unavailable Unavailable [place] Patient Registrar, Jessie Unavailable Unavai lable [place] Patient Registrar, Jessie Unavailable Unavai lable Jamey Rn, Fabiola Unavailable Unavailable Allergies No information. Encounters No information. Functional Status No information. Immunizations No information. Medications date description facility 2022-03-02 00:00 amoxicillin-pot clavulanate Walk-In Cl [facility] 2022-03-02 00:00 amoxicillin-pot clavulanate Walk-In Cl [facility] 2022-03-02 00:00 amoxicillin-pot clavulanate Walk-In Cl [facility] 2022-03-02 00:00 amoxicillin-pot clavulanate Walk-In Cl [facility] 2022-03-02 00:00 amoxicillin-pot clavulanate Walk-In Cl [facility] 2022-03-02 00:00 amoxicillin-pot clavulanate Walk-In Cl [facility] 2022-03-02 00:00 amoxicillin-pot clavulanate Walk-In Cl [facility] 2022-03-02 00:00 amoxicillin-pot clavulanate Walk-In Cl [facility] 2022-03-02 00:00 amoxicillin-pot clavulanate Walk-In Cl [facility] 2022-03-02 00:00 amoxicillin-pot clavulanate Walk-In [facility] 2022-03-02 00:00 amoxicillin-pot clavulanate Walk[facility]In [facility] 2022-03-02 00:00 amoxicillin-pot clavulanate Walk[facility] 2022-03-02 00:00 amoxicillin-pot clavulanate Walk[facility] 2022-03-02 00:00 amoxicillin-pot clavulanate Walk[facility] 2022-03-02 00:00 amoxicillin-pot clavulanate Walk[facility] 2022-03-02 00:00 amoxicillin-pot clavulanate Walk[facility] 2022-03-08 00:00 ciprofloxacin hcl [facility] 2022-03-08 00:00 ciprofloxacin hcl [facility] 2022-03-08 00:00 ciprofloxacin hcl [facility] 2022-03-08 00:00 ciprofloxacin hcl [facility] 2022-03-02 00:00 amoxicillin-pot clavulanate [facility] 2022-03-02 00:00 amoxicillin-pot clavulanate [facility] 2022-03-02 00:00 amoxicillin-pot clavulanate [facility] 2022-03-02 00:00 amoxicillin-pot clavulanate [facility] 2022-03-02 00:00 amoxicillin-pot clavulanate [facility] 2022-03-02 00:00 amoxicillin-pot clavulanate [facility] 2022-03-02 00:00 amoxicillin-pot clavulanate Walk[facility]In [facility] 2022-03-02 00:00 amoxicillin-pot clavulanate Walk[facility] 2022-03-02 00:00 amoxicillin-pot clavulanate Walk[facility] 2022-03-02 00:00 amoxicillin-pot clavulanate Walk[facility] 2022-03-02 00:00 amoxicillin-pot clavulanate Walk[facility]In [facility] 2022-03-02 00:00 amoxicillin-pot clavulanate Walk[facility] 2022-03-02 00:00 amoxicillin-pot clavulanate Walk[facility]In [facility] 2022-03-02 00:00 amoxicillin-pot clavulanate Walk[facility]In [facility] 2022-03-02 00:00 amoxicillin-pot clavulanate Walk-In [facility] 2022-03-02 00:00 amoxicillin-pot clavulanate Walk-In Cl in [facility] 2022-03-02 00:00 Increased frequency of urination Walk[facility] 2022-03-02 00:00 Increased frequency of urination Walk[facility] 2022-03-02 00:00 Increased frequency of urination [facility] 2022-03-02 00:00 Increased frequency of urination [facility] 2022-03-02 00:00 Increased frequency of urination [facility] 2022-03-02 00:00 Increased frequency of urination [facility] 2022-03-02 00:00 Increased frequency of urination [facility] 2022-03-02 00:00 Increased frequency of urination [facility] 2022-03-02 00:00 Urinary frequency [facility] 2022-03-02 00:00 Urinary frequency [facility] 2022-03-02 00:00 Urinary frequency [facility] 2022-03-02 00:00 Urinary frequency [facility] 2022-03-02 00:00 Urinary frequency [facility] 2022-03-02 00:00 Urinary frequency [facility] 2022-03-02 00:00 Urinary frequency [facility] 2022-03-02 00:00 Urinary frequency [facility] 2022-03-02 00:00 Frequency of micturition [facility] 2022-03-02 00:00 Frequency of micturition [facility] 2022-03-02 00:00 Frequency of micturition [facility] 2022-03-02 00:00 Frequency of micturition [facility] 2022-03-02 00:00 Frequency of micturition [facility] 2022-03-02 00:00 Frequency of micturition [facility] 2022-03-02 00:00 Frequency of micturition [facility] 2022-03-02 00:00 Frequency of micturition [facility] Procedures date description facility 2022-03-02 00:00 Visit Code Hold [facility] 2022-03-02 00:00 Visit Code Hold [facility] 2022-03-02 00:00 Visit Code Hold [facility] 2022-03-02 00:00 Visit Code Hold [facility] 2022-03-02 00:00 Visit Code Hold [facility] 2022-03-02 00:00 Visit Code Hold [facility] 2022-03-02 00:00 Visit Code Hold [facility] 2022-03-02 00:00 Visit Code Hold [facility] 2022-03-02 00:00 POC URINALYSIS DIP [facility] 2022-03-02 00:00 POC URINALYSIS DIP [facility] 2022-03-02 00:00 POC URINALYSIS DIP [facility] 2022-03-02 00:00 POC URINALYSIS DIP [facility] 2022-03-02 00:00 POC URINALYSIS DIP [facility] 2022-03-02 00:00 POC URINALYSIS DIP [facility] 2022-03-02 00:00 POC URINALYSIS DIP [facility] 2022-03-02 00:00 POC URINALYSIS DIP [facility] Results/Labs test date author facility value unit interpret ation Result panel 1 (unknown) (no date) (unknown) Walk-In (no value) [facility]units [facility]own[facility] Result panel 2 (unknown) (no date) (unknown) Walk-In (no value) [facility] Result panel 3 (unknown) (no date) (unknown) Walk-[facility] (no value) [facility] Result panel 4 (unknown) (no date) (unknown) Walk-[facility] (no value) [facility] Result panel 5 (unknown) (no date) (unknown) Walk-In (no value) [facility] Result panel 6 (unknown) (no date) (unknown) Walk-In (no value) [facility] Result panel 7 (unknown) (no date) (unknown) Walk-In (no value) [facility] Result panel 8 (unknown) (no date) (unknown) Walk-In (no value) [facility] Result panel 9 (unknown) (no date) (unknown) Walk-In (no value) [facility] Result panel 10 (unknown) (no date) (unknown) Walk-In (no value) [facility] Result panel 11 (unknown) (no date) (unknown) Walk-In (no value) [facility] Result panel 12 (unknown) (no date) (unknown) Walk-In (no value) [facility] Result panel 13 (unknown) (no date) (unknown) Walk-In (no value) [facility] Result panel 14 (unknown) (no date) (unknown) Walk-In (no value) [facility] Result panel 15 (unknown) (no date) (unknown) Walk-In (no value) [facility] Result panel 16 (unknown) (no date) (unknown) Walk-In (no value) [facility] Result panel 17 (unknown) (no date) (unknown) Walk-In (no value) [facility] Result panel 18 (unknown) (no date) (unknown) Walk-In (no value) [facility] Result panel 19 (unknown) (no date) (unknown) Walk-[facility] (no value) [facility] Result panel 20 (unknown) (no date) (unknown) Walk-In (no value) [facility] Result panel 21 (unknown) (no date) (unknown) Walk-In (no value) [facility] Result panel 22 (unknown) (no date) (unknown) Walk-In (no value) [facility] Result panel 23 (unknown) (no date) (unknown) Walk-In (no value) [facility] Result panel 24 (unknown) (no date) (unknown) Walk-In (no value) [facility] Result panel 25 (unknown) (no date) (unknown) Walk-In (no value) [facility] Result panel 26 (unknown) (no date) (unknown) Walk-In (no value) [facility] Result panel 27 (unknown) (no date) (unknown) Walk-In (no value) [facility] Result panel 28 (unknown) (no date) (unknown) Walk-In (no value) [facility] Result panel 29 (unknown) (no date) (unknown) Walk-In (no value) [facility] Result panel 30 (unknown) (no date) (unknown) Walk-In (no value) [facility] Result panel 31 (unknown) (no date) (unknown) Walk-In (no value) [facility]units [facility] Result panel 32 (unknown) (no date) (unknown) Walk-In (no value) [facility]units [facility] Result panel 33 (unknown) (no date) (unknown) Walk-In (no value) [facility]units [facility] Result panel 34 (unknown) (no date) (unknown) Walk-In (no value) [facility] Result panel 35 (unknown) (no date) (unknown) Walk-In (no value) [facility] Result panel 36 (unknown) (no date) (unknown) Walk-In (no value) [facility]units [facility] Result panel 37 (unknown) (no date) (unknown) Walk-In (no value) [facility]units [facility] Result panel 38 (unknown) (no date) (unknown) Walk-In (no value) [facility]units [facility] Result panel 39 (unknown) (no date) (unknown) Walk-In (no value) [facility] Result panel 40 (unknown) (no date) (unknown) Walk-In (no value) [facility] Result panel 41 (unknown) (no date) (unknown) Walk-In (no value) [facility]units [facility] Result panel 42 (unknown) (no date) (unknown) Walk-In (no value) (units [facility] Result panel 43 (unknown) (no date) (unknown) Walk-In (no value) (units [facility] Result panel 44 (unknown) (no date) (unknown) Walk-In (no value) ([facility] Result panel 45 (unknown) (no date) (unknown) Walk-In (no value) ([facility] Result panel 46 (unknown) (no date) (unknown) Walk-In (no value) (units [facility] Result panel 47 (unknown) (no date) (unknown) Walk-In (no value) [facility] Result panel 48 (unknown) (no date) (unknown) Walk-In (no value) (units [facility] Result panel 49 (unknown) (no date) (unknown) Walk-In (no value) ([facility] Result panel 50 (unknown) (no date) (unknown) Walk-In (no value) ([facility] Result panel 51 (unknown) (no date) (unknown) Walk-In (no value) ([facility] Result panel 52 (unknown) (no date) (unknown) Walk-In (no value) ([facility] Result panel 53 (unknown) (no date) (unknown) Walk-In (no value) ([facility] Result panel 54 (unknown) (no date) (unknown) Walk-In (no value) [facility] Result panel 55 (unknown) (no date) (unknown) Walk-In (no value) ([facility] Result panel 56 (unknown) (no date) (unknown) Walk-In (no value) [facility] Result panel 57 (unknown) (no date) (unknown) Walk-In (no value) [facility] Result panel 58 (unknown) (no date) (unknown) Walk-In (no value) ([facility] Result panel 59 (unknown) (no date) (unknown) Walk-In (no value) (units [facility] Result panel 60 (unknown) (no date) (unknown) Walk-In (no value) (units [facility] Result panel 61 (unknown) (no date) (unknown) Walk-In (no value) (units [facility] Result panel 62 (unknown) (no date) (unknown) Walk-In (no value) (units [facility] Result panel 63 (unknown) (no date) (unknown) Walk-In (no value) (units [facility] Result panel 64 (unknown) (no date) (unknown) Walk-In (no value) (units ([facility]own[facility] Result panel 65 (unknown) (no date) (unknown) Walk-In (no value) (units [facility] nown[facility] Result panel 66 (unknown) (no date) (unknown) Walk-In (no value) (units [facility]own[facility] Result panel 67 (unknown) (no date) (unknown) Walk-In (no value) (units [facility]own[facility] Result panel 68 (unknown) (no date) (unknown) Walk-In (no value) ([facility] Result panel 69 (unknown) (no date) (unknown) Walk-In (no value) (units [facility] Result panel 70 (unknown) (no date) (unknown) Walk-In (no value) ([facility] nown[facility] Result panel 71 (unknown) (no date) (unknown) Walk-In (no value) (units [facility] Result panel 72 (unknown) (no date) (unknown) Walk-In (no value) (units ([facility]own[facility] Result panel 73 (unknown) (no date) (unknown) Walk-In (no value) (units ([facility] nown[facility] Result panel 74 (unknown) (no date) (unknown) Walk-In (no value) (units ([facility]own[facility] Result panel 75 (unknown) (no date) (unknown) Walk-In (no value) (units ([facility] nown[facility] Result panel 76 (unknown) (no date) (unknown) Walk-In (no value) (units ([facility]own[facility] Result panel 77 (unknown) (no date) (unknown) Walk-In (no value) (units ([facility] Result panel 78 (unknown) (no date) (unknown) Walk-In (no value) (units ([facility] nown[facility] Result panel 79 (unknown) (no date) (unknown) Walk-In (no value) (units ([facility] Result panel 80 (unknown) (no date) (unknown) Walk-In (no value) (units ([facility] Result panel 81 (unknown) (no date) (unknown) Walk-In (no value) (units [facility] Result panel 82 (unknown) (no date) (unknown) Walk-In (no value) ([facility] Result panel 83 (unknown) (no date) (unknown) Walk-In (no value) (units ([facility] Result panel 84 (unknown) (no date) (unknown) Walk-In (no value) ([facility] Result panel 85 (unknown) (no date) (unknown) Walk-In (no value) ([facility] Result panel 86 (unknown) (no date) (unknown) Walk-In (no value) ([facility] ([facility] Result panel 87 (unknown) (no date) (unknown) Walk-In (no value) (units ([facility] Result panel 88 (unknown) (no date) (unknown) Walk-In (no value) ([facility] Result panel 89 (unknown) (no date) (unknown) Walk-In (no value) ([facility] Result panel 90 (unknown) (no date) (unknown) Walk-In (no value) ([facility] Result panel 91 (unknown) (no date) (unknown) Walk-In (no value) ([facility] Result panel 92 (unknown) (no date) (unknown) Walk-In (no value) (units [facility] Result panel 93 (unknown) (no date) (unknown) Walk-In (no value) (units ([facility] Result panel 94 (unknown) (no date) (unknown) Walk-In (no value) (units ([facility] n[facility] Result panel 95 (unknown) (no date) (unknown) Walk-In (no value) (units ([facility] n[facility] Result panel 96 (unknown) (no date) (unknown) Walk-In (no value) (units ([facility] n[facility] Result panel 97 (unknown) (no date) (unknown) Walk-In (no value) (units ([facility] Result panel 98 (unknown) (no date) (unknown) Walk-In (no value) (units ([facility] Result panel 99 (unknown) (no date) (unknown) Walk-In (no value) (units ([facility] Result panel 100 (unknown) (no date) (unknown) Walk-In (no value) (units ([facility] Result panel 101 (unknown) (no date) (unknown) Walk-In (no value) (units ([facility] Result panel 102 (unknown) (no date) (unknown) Walk-In (no value) (units ([facility] n[facility] Result panel 103 (unknown) (no date) (unknown) Walk-In (no value) (units ([facility] Result panel 104 (unknown) (no date) (unknown) Walk-In (no value) (units ([facility] nown) [facility] Result panel 105 (unknown) (no date) (unknown) Walk-In (no value) (units ([facility]own[facility] Result panel 106 (unknown) (no date) (unknown) Walk-In (no value) (units ([facility] n[facility] Result panel 107 (unknown) (no date) (unknown) Walk-In (no value) (units ([facility] nown) [facility] unknown) [facility] Result panel 108 (unknown) (no date) (unknown) [facility] Result panel 109 (unknown) (no date) (unknown) [facility] (no value) [facility] Result panel 110 (unknown) (no date) (unknown) [facility]no value) [facility] Result panel 111 (unknown) (no date) (unknown) [facility]no value) [facility] Result panel 112 (unknown) (no date) (unknown) [facility]no value) [facility] Result panel 113 (unknown) (no date) (unknown) [facility] (no value) [facility] Result panel 114 (unknown) (no date) (unknown) [facility] (no value) [facility] Result panel 115 (unknown) (no date) (unknown) [facility] (no value) [facility] Result panel 116 (unknown) (no date) (unknown) [facility] (no value) [facility] Result panel 117 (unknown) (no date) (unknown) [facility]no value) [facility] Result panel 118 (unknown) (no date) (unknown) [facility] (no value) [facility] Result panel 119 (unknown) (no date) (unknown) [facility] (no value) [facility] Result panel 120 (unknown) (no date) (unknown) [facility] (no value) [facility] Result panel 121 (unknown) (no date) (unknown) [facility] (no value) [facility] Result panel 122 (unknown) (no date) (unknown) [facility] (no value) [facility] Result panel 123 (unknown) (no date) (unknown) [facility] (no value) [facility] Result panel 124 (unknown) (no date) (unknown) [facility] (no value) [facility] Result panel 125 (unknown) (no date) (unknown) [facility] (no value) [facility] Result panel 126 (unknown) (no date) (unknown) [facility]no value) [facility] Result panel 127 (unknown) (no date) (unknown) [facility] (no value) [facility] Result panel 128 (unknown) (no date) (unknown) [facility] (no value) [facility] Result panel 129 (unknown) (no date) (unknown) [facility] (no value) [facility] Result panel 130 (unknown) (no date) (unknown) [facility] (no value) [facility] Result panel 131 (unknown) (no date) (unknown) [facility] (no value) [facility] Result panel 132 (unknown) (no date) (unknown) [facility] (no value) [facility] Result panel 133 (unknown) (no date) (unknown) [facility] (no value) [facility] Result panel 134 (unknown) (no date) (unknown) [facility] (no value) [facility] Result panel 135 (unknown) (no date) (unknown) [facility] (no value) [facility] Result panel 136 (unknown) (no date) (unknown) [facility] (no value) [facility] Result panel 137 (unknown) (no date) (unknown) [facility] (no value) [facility] Result panel 138 (unknown) (no date) (unknown) [facility] (no value) [facility] Result panel 139 (unknown) (no date) (unknown) [facility] (no value) [facility] Result panel 140 (unknown) (no date) (unknown) [facility] (no value) [facility] Result panel 141 (unknown) (no date) (unknown) [facility] (no value) [facility] Result panel 142 (unknown) (no date) (unknown) [facility] (no value) [facility] Result panel 143 (unknown) (no date) (unknown) [facility] (no value) [facility] Result panel 144 (unknown) (no date) (unknown) [facility] (no value) [facility] Result panel 145 (unknown) (no date) (unknown) [facility] (no value) [facility] Result panel 146 (unknown) (no date) (unknown) [facility] (no value) [facility] Result panel 147 (unknown) (no date) (unknown) [facility] (no value) [facility] Result panel 148 (unknown) (no date) (unknown) [facility] (no value) [facility] Result panel 149 (unknown) (no date) (unknown) [facility] (no value) [facility] Result panel 150 (unknown) (no date) (unknown) [facility] (no value) [facility] Result panel 151 (unknown) (no date) (unknown) [facility] (no value) [facility] Result panel 152 (unknown) (no date) (unknown) [facility] (no value) [facility] Result panel 153 (unknown) (no date) (unknown) [facility] (no value) [facility] Result panel 154 (unknown) (no date) (unknown) [facility] (no value) [facility] Result panel 155 (unknown) (no date) (unknown) [facility] (no value) [facility] Result panel 156 (unknown) (no date) (unknown) [facility] (no value) [facility] Result panel 157 (unknown) (no date) (unknown) [facility] (no value) [facility] Result panel 158 (unknown) (no date) (unknown) [facility] (no value) [facility] Result panel 159 (unknown) (no date) (unknown) [facility] (no value) [facility] Result panel 160 (unknown) (no date) (unknown) [facility] (no value) [facility] Result panel 161 (unknown) (no date) (unknown) [facility] (no value) [facility] Result panel 162 (unknown) (no date) (unknown) [facility] (no value) [facility] Result panel 163 (unknown) (no date) (unknown) [facility] (no value) [facility] Result panel 164 (unknown) (no date) (unknown) [facility] (no value) [facility] Result panel 165 (unknown) (no date) (unknown) [facility] (no value) [facility] Result panel 166 (unknown) (no date) (unknown) [facility] (no value) [facility] Result panel 167 (unknown) (no date) (unknown) [facility] (no value) [facility] Result panel 168 (unknown) (no date) (unknown) [facility] (no value) [facility] Result panel 169 (unknown) (no date) (unknown) [facility] (no value) [facility] Result panel 170 (unknown) (no date) (unknown) [facility] (no value) [facility] Result panel 171 (unknown) (no date) (unknown) [facility] (no value) [facility] Result panel 172 (unknown) (no date) (unknown) [facility] (no value) [facility] Result panel 173 (unknown) (no date) (unknown) [facility] (no value) [facility] Result panel 174 (unknown) (no date) (unknown) [facility] (no value) [facility] Result panel 175 (unknown) (no date) (unknown) [facility] (no value) [facility] Result panel 176 (unknown) (no date) (unknown) [facility] (no value) [facility] Result panel 177 (unknown) (no date) (unknown) [facility] (no value) [facility] Result panel 178 (unknown) (no date) (unknown) [facility] (no value) [facility] Result panel 179 (unknown) (no date) (unknown) [facility] (no value) [facility] Result panel 180 (unknown) (no date) (unknown) [facility] (no value) [facility] Result panel 181 (unknown) (no date) (unknown) [facility] (no value) [facility] Result panel 182 (unknown) (no date) (unknown) [facility] (no value) [facility] Result panel 183 (unknown) (no date) (unknown) [facility] (no value) [facility] Result panel 184 (unknown) (no date) (unknown) [facility] (no value) [facility] Result panel 185 (unknown) (no date) (unknown) [facility] (no value) [facility] Result panel 186 (unknown) (no date) (unknown) [facility] (no value) [facility] Result panel 187 (unknown) (no date) (unknown) [facility] (no value) [facility] Result panel 188 (unknown) (no date) (unknown) [facility] (no value) [facility] Result panel 189 (unknown) (no date) (unknown) [facility] (no value) [facility] Result panel 190 (unknown) (no date) (unknown) [facility] (no value) [facility] Result panel 191 (unknown) (no date) (unknown) [facility] (no value) [facility] Result panel 192 (unknown) (no date) (unknown) [facility] (no value) [facility] Result panel 193 (unknown) (no date) (unknown) [facility] (no value) [facility] Result panel 194 (unknown) (no date) (unknown) [facility] (no value) [facility] Result panel 195 (unknown) (no date) (unknown) [facility] (no value) [facility] Result panel 196 (unknown) (no date) (unknown) [facility] (no value) [facility] Result panel 197 (unknown) (no date) (unknown) [facility] (no value) [facility] Result panel 198 (unknown) (no date) (unknown) [facility] (no value) [facility] Result panel 199 (unknown) (no date) (unknown) [facility] (no value) [facility] Result panel 200 (unknown) (no date) (unknown) [facility] (no value) [facility] Result panel 201 (unknown) (no date) (unknown) [facility] (no value) [facility] Result panel 202 (unknown) (no date) (unknown) [facility] (no value) [facility] Result panel 203 (unknown) (no date) (unknown) [facility] (no value) [facility] Result panel 204 (unknown) (no date) (unknown) [facility] (no value) [facility] Result panel 205 (unknown) (no date) (unknown) [facility] (no value) [facility] Result panel 206 (unknown) (no date) (unknown) [facility] (no value) [facility] Result panel 207 (unknown) (no date) (unknown) [facility] (no value) [facility] Result panel 208 (unknown) (no date) (unknown) [facility] (no value) [facility] Result panel 209 (unknown) (no date) (unknown) [facility] (no value) [facility] Result panel 210 (unknown) (no date) (unknown) [facility] (no value) [facility] Result panel 211 (unknown) (no date) (unknown) [facility] (no value) [facility] Result panel 212 (unknown) (no date) (unknown) [facility] (no value) [facility] Result panel 213 (unknown) (no date) (unknown) [facility] (no value) [facility] Result panel 214 (unknown) (no date) (unknown) [facility] (no value) [facility] Result panel 215 (unknown) (no date) (unknown) [facility] (no value) [facility] Result panel 216 (unknown) (no date) (unknown) [facility] (no value) [facility] Result panel 217 (unknown) (no date) (unknown) [facility] (no value) [facility] Result panel 218 (unknown) (no date) (unknown) [facility] (no value) [facility] Result panel 219 (unknown) (no date) (unknown) [facility] (no value) [facility] Result panel 220 (unknown) (no date) (unknown) [facility] (no value) [facility] Result panel 221 (unknown) (no date) (unknown) [facility] (no value) [facility] Result panel 222 (unknown) (no date) (unknown) [facility] (no value) [facility] Result panel 223 (unknown) (no date) (unknown) [facility] (no value) [facility] Result panel 224 (unknown) (no date) (unknown) [facility] (no value) [facility] Result panel 225 (unknown) (no date) (unknown) [facility] (no value) [facility] Result panel 226 (unknown) (no date) (unknown) [facility] (no value) [facility] Result panel 227 (unknown) (no date) (unknown) [facility] (no value) [facility] Result panel 228 (unknown) (no date) (unknown) [facility] (no value) [facility] Result panel 229 (unknown) (no date) (unknown) [facility] (no value) [facility] Result panel 230 (unknown) (no date) (unknown) [facility] (no value) [facility] Result panel 231 (unknown) (no date) (unknown) [facility] (no value) [facility] Result panel 232 (unknown) (no date) (unknown) [facility] (no value) [facility] Result panel 233 (unknown) (no date) (unknown) [facility] (no value) [facility] Result panel 234 (unknown) (no date) (unknown) [facility] (no value) [facility] Result panel 235 (unknown) (no date) (unknown) [facility] (no value) [facility] Result panel 236 (unknown) (no date) (unknown) [facility] (no value) [facility] Result panel 237 (unknown) (no date) (unknown) [facility] (no value) [facility] Result panel 238 (unknown) (no date) (unknown) [facility] (no value) [facility] Result panel 239 (unknown) (no date) (unknown) [facility] (no value) [facility] Result panel 240 (unknown) (no date) (unknown) [facility] (no value) [facility] Result panel 241 (unknown) (no date) (unknown) [facility] (no value) [facility] Result panel 242 (unknown) (no date) (unknown) [facility] (no value) [facility] Result panel 243 (unknown) (no date) (unknown) [facility] (no value) [facility] Result panel 244 (unknown) (no date) (unknown) [facility] (no value) [facility] Result panel 245 (unknown) (no date) (unknown) [facility] (no value) [facility] Result panel 246 (unknown) (no date) (unknown) [facility] (no value) [facility] Result panel 247 (unknown) (no date) (unknown) [facility] (no value) [facility] Result panel 248 (unknown) (no date) (unknown) [facility] (no value) [facility] Result panel 249 (unknown) (no date) (unknown) [facility] (no value) [facility] Result panel 250 (unknown) (no date) (unknown) [facility] (no value) [facility] Result panel 251 (unknown) (no date) (unknown) [facility] (no value) [facility] Result panel 252 (unknown) (no date) (unknown) [facility] (no value) [facility] Result panel 253 (unknown) (no date) (unknown) [facility] (no value) [facility] Result panel 254 (unknown) (no date) (unknown) [facility] (no value) [facility] Result panel 255 (unknown) (no date) (unknown) [facility] (no value) [facility] Result panel 256 (unknown) (no date) (unknown) [facility] (no value) [facility] Result panel 257 (unknown) (no date) (unknown) [facility] (no value) [facility] Result panel 258 (unknown) (no date) (unknown) [facility] (no value) [facility] Result panel 259 (unknown) (no date) (unknown) [facility] (no value) [facility] Result panel 260 (unknown) (no date) (unknown) [facility] (no value) [facility] Result panel 261 (unknown) (no date) (unknown) [facility] (no value) [facility] Result panel 262 (unknown) (no date) (unknown) [facility] (no value) [facility] Result panel 263 (unknown) (no date) (unknown) [facility] (no value) [facility] Result panel 264 (unknown) (no date) (unknown) [facility] (no value) [facility] Result panel 265 (unknown) (no date) (unknown) [facility] (no value) [facility] Result panel 266 (unknown) (no date) (unknown) [facility] (no value) [facility] Result panel 267 (unknown) (no date) (unknown) [facility] (no value) [facility] Result panel 268 (unknown) (no date) (unknown) [facility] (no value) [facility] Result panel 269 (unknown) (no date) (unknown) [facility] (no value) [facility] Result panel 270 (unknown) (no date) (unknown) [facility] (no value) [facility] Result panel 271 (unknown) (no date) (unknown) [facility] (no value) [facility] Result panel 272 (unknown) (no date) (unknown) [facility] (no value) [facility] Result panel 273 (unknown) (no date) (unknown) [facility] (no value) [facility] Result panel 274 (unknown) (no date) (unknown) [facility] (no value) [facility] Result panel 275 (unknown) (no date) (unknown) [facility] (no value) [facility] Result panel 276 (unknown) (no date) (unknown) [facility] (no value) [facility] Result panel 277 (unknown) (no date) (unknown) [facility] (no value) [facility] Result panel 278 (unknown) (no date) (unknown) [facility] (no value) [facility] Result panel 279 (unknown) (no date) (unknown) [facility] (no value) [facility] Result panel 280 (unknown) (no date) (unknown) [facility] (no value[facility] Result panel 281 (unknown) (no date) (unknown) [facility] (no value) [facility] Result panel 282 (unknown) (no date) (unknown) [facility] (no value) [facility] Result panel 283 (unknown) (no date) (unknown) [facility] (no value) [facility] Result panel 284 (unknown) (no date) (unknown) [facility] (no value) [facility] Result panel 285 (unknown) (no date) (unknown) [facility] (no value) [facility] Result panel 286 (unknown) (no date) (unknown) [facility] (no value) [facility] Result panel 287 (unknown) (no date) (unknown) [facility] (no value) [facility] Result panel 288 (unknown) (no date) (unknown) [facility] (no value) [facility] Result panel 289 (unknown) (no date) (unknown) [facility] (no value) [facility] Result panel 290 (unknown) (no date) (unknown) [facility] (no value) [facility] Result panel 291 (unknown) (no date) (unknown) [facility] (no value) [facility] Result panel 292 (unknown) (no date) (unknown) [facility] (no value) [facility] Result panel 293 (unknown) (no date) (unknown) [facility] (no value) [facility] Result panel 294 (unknown) (no date) (unknown) [facility] (no value) [facility] Result panel 295 (unknown) (no date) (unknown) [facility] (no value) [facility] Result panel 296 (unknown) (no date) (unknown) [facility] (no value) [facility] Result panel 297 (unknown) (no date) (unknown) [facility] (no value) [facility] Result panel 298 (unknown) (no date) (unknown) [facility] (no value) [facility] Result panel 299 (unknown) (no date) (unknown) [facility] (no value) [facility] Result panel 300 (unknown) (no date) (unknown) [facility] (no value) [facility] Result panel 301 (unknown) (no date) (unknown) [facility] (no value) [facility] Result panel 302 (unknown) (no date) (unknown) [facility] (no value) [facility] Result panel 303 (unknown) (no date) (unknown) [facility] (no value) [facility] Result panel 304 (unknown) (no date) (unknown) [facility] (no value) [facility] Result panel 305 (unknown) (no date) (unknown) [facility] (no value) [facility] Result panel 306 (unknown) (no date) (unknown) [facility] (no value) [facility] Result panel 307 (unknown) (no date) (unknown) [facility] (no value) [facility] Result panel 308 (unknown) (no date) (unknown) [facility] (no value) [facility] Result panel 309 (unknown) (no date) (unknown) [facility] (no value) [facility] Result panel 310 (unknown) (no date) (unknown) [facility] (no value) [facility] Result panel 311 (unknown) (no date) (unknown) [facility] (no value) [facility] Result panel 312 (unknown) (no date) (unknown) [facility] (no value) [facility] Result panel 313 (unknown) (no date) (unknown) [facility] (no value) [facility] Result panel 314 (unknown) (no date) (unknown) [facility] (no value) [facility] Result panel 315 (unknown) (no date) (unknown) [facility] (no value) [facility] Result panel 316 (unknown) (no date) (unknown) [facility] (no value) [facility] Result panel 317 (unknown) (no date) (unknown) [facility] (no value) [facility] Result panel 318 (unknown) (no date) (unknown) [facility] (no value) [facility] Result panel 319 (unknown) (no date) (unknown) [facility] (no value) [facility] Result panel 320 (unknown) (no date) (unknown) [facility] (no value) [facility] Result panel 321 (unknown) (no date) (unknown) [facility] (no value) [facility] Result panel 322 (unknown) (no date) (unknown) [facility] (no value) [facility] Result panel 323 (unknown) (no date) (unknown) [facility] (no value) [facility] Result panel 324 (unknown) (no date) (unknown) [facility] (no value) [facility] Result panel 325 (unknown) (no date) (unknown) [facility] (no value) [facility] Result panel 326 (unknown) (no date) (unknown) [facility] (no value) [facility] Result panel 327 (unknown) (no date) (unknown) [facility] (no value) [facility] Result panel 328 (unknown) (no date) (unknown) [facility] (no value) [facility] Result panel 329 (unknown) (no date) (unknown) [facility] (no value) [facility] Result panel 330 (unknown) (no date) (unknown) [facility] (no value) [facility] Result panel 331 (unknown) (no date) (unknown) [facility] (no value) [facility] Result panel 332 (unknown) (no date) (unknown) [facility] (no value) [facility] Result panel 333 (unknown) (no date) (unknown) [facility] (no value) [facility] Result panel 334 (unknown) (no date) (unknown) [facility] (no value) [facility] Result panel 335 (unknown) (no date) (unknown) [facility] (no value) [facility] Result panel 336 (unknown) (no date) (unknown) [facility] (no value) [facility] Result panel 337 (unknown) (no date) (unknown) [facility] (no value) [facility] Result panel 338 (unknown) (no date) (unknown) [facility] (no value) [facility] Result panel 339 (unknown) (no date) (unknown) [facility] (no value) [facility] Result panel 340 (unknown) (no date) (unknown) [facility] (no value) [facility] Result panel 341 (unknown) (no date) (unknown) [facility] (no value) [facility] Result panel 342 (unknown) (no date) (unknown) [facility] (no value) [facility] Result panel 343 (unknown) (no date) (unknown) [facility] (no value) [facility] Result panel 344 (unknown) (no date) (unknown) [facility] (no value) [facility] Result panel 345 (unknown) (no date) (unknown) [facility] (no value) [facility] Result panel 346 (unknown) (no date) (unknown) [facility] (no value) [facility] Result panel 347 (unknown) (no date) (unknown) [facility] (no value) [facility] Result panel 348 (unknown) (no date) (unknown) [facility] (no value) [facility] Result panel 349 (unknown) (no date) (unknown) [facility] (no value) [facility] Result panel 350 (unknown) (no date) (unknown) [facility] (no value) [facility] Result panel 351 (unknown) (no date) (unknown) [facility] (no value) [facility] Result panel 352 (unknown) (no date) (unknown) [facility] (no value) [facility] Result panel 353 (unknown) (no date) (unknown) [facility] (no value) [facility] Result panel 354 (unknown) (no date) (unknown) [facility] (no value) [facility] Result panel 355 (unknown) (no date) (unknown) [facility] (no value) [facility] Result panel 356 (unknown) (no date) (unknown) [facility] (no value) [facility] Result panel 357 (unknown) (no date) (unknown) [facility] (no value) [facility] Result panel 358 (unknown) (no date) (unknown) [facility] (no value) [facility] Result panel 359 (unknown) (no date) (unknown) [facility] (no value) [facility] Result panel 360 (unknown) (no date) (unknown) [facility] (no value) [facility] Result panel 361 (unknown) (no date) (unknown) [facility] (no value) [facility] Result panel 362 (unknown) (no date) (unknown) [facility] (no value) [facility] Result panel 363 (unknown) (no date) (unknown) [facility] (no value) [facility] Result panel 364 (unknown) (no date) (unknown) [facility] (no value) [facility] Result panel 365 (unknown) (no date) (unknown) [facility] (no value) [facility] Result panel 366 (unknown) (no date) (unknown) [facility] (no value) [facility] Result panel 367 (unknown) (no date) (unknown) [facility] (no value) [facility] Result panel 368 (unknown) (no date) (unknown) [facility] (no value) [facility] Result panel 369 (unknown) (no date) (unknown) [facility] (no value) [facility] Result panel 370 (unknown) (no date) (unknown) [facility] (no value) [facility] Result panel 371 (unknown) (no date) (unknown) [facility] (no value) [facility] Result panel 372 (unknown) (no date) (unknown) [facility] (no value) [facility] Result panel 373 (unknown) (no date) (unknown) [facility] (no value) [facility] Result panel 374 (unknown) (no date) (unknown) [facility] (no value) [facility] Result panel 375 (unknown) (no date) (unknown) [facility] (no value) [facility] Result panel 376 (unknown) (no date) (unknown) [facility] (no value) [facility] Result panel 377 (unknown) (no date) (unknown) [facility] (no value) [facility] Result panel 378 (unknown) (no date) (unknown) [facility] (no value) [facility] Result panel 379 (unknown) (no date) (unknown) [facility] (no value) [facility] Result panel 380 (unknown) (no date) (unknown) [facility] (no value) [facility] Result panel 381 (unknown) (no date) (unknown) [facility] (no value) [facility] Result panel 382 (unknown) (no date) (unknown) [facility] (no value) [facility] Result panel 383 (unknown) (no date) (unknown) [facility] (no value) [facility] Result panel 384 (unknown) (no date) (unknown) [facility] (no value) [facility] Result panel 385 (unknown) (no date) (unknown) [facility] (no value) [facility] Result panel 386 (unknown) (no date) (unknown) [facility] (no value) [facility] Result panel 387 (unknown) (no date) (unknown) [facility] (no value) [facility] Result panel 388 (unknown) (no date) (unknown) [facility] (no value) [facility] Result panel 389 (unknown) (no date) (unknown) [facility] (no value) [facility] Result panel 390 (unknown) (no date) (unknown) [facility] (no value) [facility] Result panel 391 (unknown) (no date) (unknown) [facility] (no value) [facility] Result panel 392 (unknown) (no date) (unknown) [facility] (no value) [facility] Result panel 393 (unknown) (no date) (unknown) [facility] (no value) [facility] Result panel 394 (unknown) (no date) (unknown) [facility] (no value) [facility] Result panel 395 (unknown) (no date) (unknown) [facility] (no value) [facility] Result panel 396 (unknown) (no date) (unknown) [facility] (no value) [facility] Result panel 397 (unknown) (no date) (unknown) [facility] (no value) [facility] Result panel 398 (unknown) (no date) (unknown) [facility] (no value) [facility] Result panel 399 (unknown) (no date) (unknown) [facility] (no value) [facility] Result panel 400 (unknown) (no date) (unknown) [facility] (no value) [facility] Result panel 401 (unknown) (no date) (unknown) [facility] (no value) [facility] Result panel 402 (unknown) (no date) (unknown) [facility] (no value) [facility] Result panel 403 (unknown) (no date) (unknown) [facility] (no value) [facility] Result panel 404 (unknown) (no date) (unknown) [facility] (no value) [facility] Result panel 405 (unknown) (no date) (unknown) [facility] (no value) [facility] Result panel 406 (unknown) (no date) (unknown) [facility] (no value) [facility] Result panel 407 (unknown) (no date) (unknown) [facility] (no value) [facility] Result panel 408 (unknown) (no date) (unknown) [facility] (no value) [facility] Result panel 409 (unknown) (no date) (unknown) [facility] (no value) [facility] Result panel 410 (unknown) (no date) (unknown) [facility] (no value) [facility] Result panel 411 (unknown) (no date) (unknown) [facility] (no value) [facility] Result panel 412 (unknown) (no date) (unknown) [facility] (no value) [facility] Result panel 413 (unknown) (no date) (unknown) [facility] (no value) [facility] Result panel 414 (unknown) (no date) (unknown) [facility] (no value) [facility] Result panel 415 (unknown) (no date) (unknown) [facility] (no value) [facility] Result panel 416 (unknown) (no date) (unknown) [facility] (no value) [facility] Result panel 417 (unknown) (no date) (unknown) [facility] (no value) [facility] Result panel 418 (unknown) (no date) (unknown) [facility] (no value) [facility] Result panel 419 (unknown) (no date) (unknown) [facility] (no value) [facility] Result panel 420 (unknown) (no date) (unknown) [facility] (no value) [facility] Result panel 421 (unknown) (no date) (unknown) [facility] (no value) [facility] Result panel 422 (unknown) (no date) (unknown) [facility] (no value) [facility] Result panel 423 (unknown) (no date) (unknown) [facility] (no value) [facility] Result panel 424 (unknown) (no date) (unknown) [facility] (no value) [facility] Result panel 425 (unknown) (no date) (unknown) [facility] (no value) [facility] Result panel 426 (unknown) (no date) (unknown) [facility] (no value) [facility] Result panel 427 (unknown) (no date) (unknown) [facility] (no value) [facility] Result panel 428 (unknown) (no date) (unknown) [facility] (no value) [facility] Result panel 429 (unknown) (no date) (unknown) [facility] (no value) [facility] Result panel 430 (unknown) (no date) (unknown) [facility] (no value) [facility] Result panel 431 (unknown) (no date) (unknown) [facility] (no value) [facility] Result panel 432 (unknown) (no date) (unknown) [facility] (no value) [facility] Result panel 433 (unknown) (no date) (unknown) [facility] (no value) [facility] Result panel 434 (unknown) (no date) (unknown) [facility] (no value) [facility] Result panel 435 (unknown) (no date) (unknown) [facility] (no value) [facility] Result panel 436 (unknown) (no date) (unknown) [facility] (no value) [facility] Result panel 437 (unknown) (no date) (unknown) [facility] (no value) [facility] Result panel 438 (unknown) (no date) (unknown) [facility] (no value) [facility] Result panel 439 (unknown) (no date) (unknown) [facility] (no value) [facility] Result panel 440 (unknown) (no date) (unknown) [facility] (no value) [facility] Result panel 441 (unknown) (no date) (unknown) [facility] (no value) [facility] Result panel 442 (unknown) (no date) (unknown) [facility] (no value) [facility] Result panel 443 (unknown) (no date) (unknown) [facility] (no value) [facility] Result panel 444 (unknown) (no date) (unknown) [facility] (no value) [facility] Result panel 445 (unknown) (no date) (unknown) [facility] (no value) [facility] Result panel 446 (unknown) (no date) (unknown) [facility] (no value) [facility] Result panel 447 (unknown) (no date) (unknown) [facility] (no value) [facility] Result panel 448 (unknown) (no date) (unknown) [facility] (no value) [facility] Result panel 449 (unknown) (no date) (unknown) [facility] (no value) [facility] Result panel 450 (unknown) (no date) (unknown) Walk-In (no value) (units [facility] Result panel 451 (unknown) (no date) (unknown) Walk-In (no value) (units [facility] Result panel 452 (unknown) (no date) (unknown) [facility] (no value) [facility] Result panel 453 (unknown) (no date) (unknown) [facility] (no value) [facility] Result panel 454 (unknown) (no date) (unknown) [facility] (no value) [facility] Result panel 455 (unknown) (no date) (unknown) [facility] (no value) [facility] Result panel 456 (unknown) (no date) (unknown) [facility]-In (no value) [facility] Result panel 457 (unknown) (no date) (unknown) [facility] (no value) [facility] Result panel 458 (unknown) (no date) (unknown) [facility]-In (no value) [facility] Result panel 459 (unknown) (no date) (unknown) [facility]-In (no value) [facility] Result panel 460 (unknown) (no date) (unknown) [facility] (no value) [facility] Result panel 461 (unknown) (no date) (unknown) [facility] (no value) [facility] Result panel 462 (unknown) (no date) (unknown) [facility] (no value) [facility] Result panel 463 (unknown) (no date) (unknown) [facility] (no value) [facility] Result panel 464 (unknown) (no date) (unknown) [facility] (no value) [facility] Result panel 465 (unknown) (no date) (unknown) [facility] (no value) [facility] Result panel 466 (unknown) (no date) (unknown) [facility] (no value) [facility] Result panel 467 (unknown) (no date) (unknown) [facility] (no value) [facility] Result panel 468 (unknown) (no date) (unknown) [facility] (no value) [facility] Result panel 469 (unknown) (no date) (unknown) [facility] (no value) [facility] Result panel 470 (unknown) (no date) (unknown) [facility] (no value) [facility] Result panel 471 (unknown) (no date) (unknown) [facility] (no value) [facility] Result panel 472 (unknown) (no date) (unknown) Walk-[facility] (no value) [facility] Result panel 473 (unknown) (no date) (unknown) [facility] (no value) [facility] Result panel 474 (unknown) (no date) (unknown) [facility] (no value) [facility] Result panel 475 (unknown) (no date) (unknown) [facility] (no value) [facility] Result panel 476 (unknown) (no date) (unknown) [facility] (no value) [facility] Result panel 477 (unknown) (no date) (unknown) [facility] (no value) [facility] Result panel 478 (unknown) (no date) (unknown) [facility] (no value) [facility] Result panel 479 (unknown) (no date) (unknown) [facility]-In (no value) [facility] Result panel 480 (unknown) (no date) (unknown) [facility]-In (no value) [facility] Result panel 481 (unknown) (no date) (unknown) [facility] (no value) [facility] Result panel 482 (unknown) (no date) (unknown) Walk-[facility] (no value) [facility] Result panel 483 (unknown) (no date) (unknown) [facility] (no value) [facility] Result panel 484 (unknown) (no date) (unknown) [facility] (no value) [facility] Result panel 485 (unknown) (no date) (unknown) [facility]-In (no value) [facility] Result panel 486 (unknown) (no date) (unknown) [facility]-In (no value) [facility] Result panel 487 (unknown) (no date) (unknown) [facility] (no value) [facility] Result panel 488 (unknown) (no date) (unknown) Walk-In (no value) [facility] Result panel 489 (unknown) (no date) (unknown) [facility] (no value) [facility] Result panel 490 (unknown) (no date) (unknown) [facility] (no value) [facility] Result panel 491 (unknown) (no date) (unknown) Walk-[facility] (no value) [facility] Result panel 492 (unknown) (no date) (unknown) [facility] (no value) [facility] Result panel 493 (unknown) (no date) (unknown) Walk-In (no value) [facility] Result panel 494 (unknown) (no date) (unknown) [facility] (no value) [facility] Result panel 495 (unknown) (no date) (unknown) [facility] (no value) [facility] Result panel 496 (unknown) (no date) (unknown) [facility]-In (no value) [facility] Result panel 497 (unknown) (no date) (unknown) [facility] (no value) [facility] Result panel 498 (unknown) (no date) (unknown) [facility] (no value) [facility] Result panel 499 (unknown) (no date) (unknown) [facility] (no value) [facility] Result panel 500 (unknown) (no date) (unknown) Walk-[facility] (no value) [facility] Result panel 501 (unknown) (no date) (unknown) [facility]-In (no value) [facility] Result panel 502 (unknown) (no date) (unknown) Walk-In (no value) [facility] Result panel 503 (unknown) (no date) (unknown) Walk-In (no value) [facility] Result panel 504 (unknown) (no date) (unknown) Walk-In (no value) [facility] Result panel 505 (unknown) (no date) (unknown) [facility] (no value) [facility] Result panel 506 (unknown) (no date) (unknown) Walk-[facility] (no value) [facility] Result panel 507 (unknown) (no date) (unknown) [facility]-In (no value) [facility] Result panel 508 (unknown) (no date) (unknown) [facility] (no value) [facility] Result panel 509 (unknown) (no date) (unknown) Walk-[facility] (no value) [facility] Result panel 510 (unknown) (no date) (unknown) [facility] (no value) [facility] Result panel 511 (unknown) (no date) (unknown) [facility] (no value) [facility] Result panel 512 (unknown) (no date) (unknown) [facility] (no value) [facility] Result panel 513 (unknown) (no date) (unknown) [facility] (no value) [facility] Result panel 514 (unknown) (no date) (unknown) [facility] (no value) [facility] Result panel 515 (unknown) (no date) (unknown) [facility] (no value) [facility] Result panel 516 (unknown) (no date) (unknown) Walk-[facility] (no value) [facility] Result panel 517 (unknown) (no date) (unknown) [facility] (no value) [facility] Result panel 518 (unknown) (no date) (unknown) [facility] (no value) [facility] Result panel 519 (unknown) (no date) (unknown) [facility] (no value) [facility] Result panel 520 (unknown) (no date) (unknown) [facility] (no value) [facility] Result panel 521 (unknown) (no date) (unknown) [facility] (no value) [facility] Result panel 522 (unknown) (no date) (unknown) [facility] (no value) [facility] Result panel 523 (unknown) (no date) (unknown) [facility] (no value) [facility] Result panel 524 (unknown) (no date) (unknown) [facility] (no value) [facility] Result panel 525 (unknown) (no date) (unknown) [facility] (no value) [facility] Result panel 526 (unknown) (no date) (unknown) [facility] (no value) [facility] Result panel 527 (unknown) (no date) (unknown) [facility] (no value) [facility] Result panel 528 (unknown) (no date) (unknown) [facility] (no value) [facility] Result panel 529 (unknown) (no date) (unknown) [facility] (no value) [facility] Result panel 530 (unknown) (no date) (unknown) Walk-In (no value) [facility] Result panel 531 (unknown) (no date) (unknown) Walk-In (no value) [facility] Result panel 532 (unknown) (no date) (unknown) [facility] (no value) [facility] Result panel 533 (unknown) (no date) (unknown) [facility]-In (no value) [facility] Result panel 534 (unknown) (no date) (unknown) [facility] (no value) [facility] Result panel 535 (unknown) (no date) (unknown) [facility] (no value) [facility] Result panel 536 (unknown) (no date) (unknown) [facility] (no value) [facility] Result panel 537 (unknown) (no date) (unknown) [facility] (no value) [facility] Result panel 538 (unknown) (no date) (unknown) [facility] (no value) [facility] Result panel 539 (unknown) (no date) (unknown) [facility] (no value) [facility] Result panel 540 (unknown) (no date) (unknown) [facility] (no value) [facility] Result panel 541 (unknown) (no date) (unknown) [facility] (no value) [facility] Result panel 542 (unknown) (no date) (unknown) [facility] (no value) [facility] Result panel 543 (unknown) (no date) (unknown) [facility] (no value) [facility] Result panel 544 (unknown) (no date) (unknown) [facility] (no value) [facility] Result panel 545 (unknown) (no date) (unknown) [facility] (no value) [facility] Result panel 546 (unknown) (no date) (unknown) [facility] (no value) [facility] Result panel 547 (unknown) (no date) (unknown) [facility] (no value) [facility] Result panel 548 (unknown) (no date) (unknown) [facility] (no value) [facility] Result panel 549 (unknown) (no date) (unknown) [facility] (no value) [facility] Result panel 550 (unknown) (no date) (unknown) [facility] (no value) [facility] Result panel 551 (unknown) (no date) (unknown) [facility] (no value) [facility] Result panel 552 (unknown) (no date) (unknown) [facility] (no value) [facility] Result panel 553 (unknown) (no date) (unknown) [facility] (no value) [facility] Result panel 554 (unknown) (no date) (unknown) [facility] (no value) [facility] Result panel 555 (unknown) (no date) (unknown) [facility] (no value) [facility] Result panel 556 (unknown) (no date) (unknown) [facility] (no value) [facility] Result panel 557 (unknown) (no date) (unknown) [facility] (no value) [facility] Result panel 558 (unknown) (no date) (unknown) [facility] (no value) [facility] Result panel 559 (unknown) (no date) (unknown) [facility]-In (no value) [facility] Result panel 560 (unknown) (no date) (unknown) [facility] (no value) [facility] Result panel 561 (unknown) (no date) (unknown) [facility] (no value) [facility] Result panel 562 (unknown) (no date) (unknown) [facility] (no value) [facility] Result panel 563 (unknown) (no date) (unknown) [facility] (no value) [facility] Result panel 564 (unknown) (no date) (unknown) [facility] (no value) [facility] Result panel 565 (unknown) (no date) (unknown) [facility] (no value) [facility] Result panel 566 (unknown) (no date) (unknown) [facility] (no value) [facility] Result panel 567 (unknown) (no date) (unknown) [facility] (no value) [facility] Result panel 568 (unknown) (no date) (unknown) [facility] (no value) [facility] Result panel 569 (unknown) (no date) (unknown) [facility] (no value) [facility] Result panel 570 (unknown) (no date) (unknown) [facility] (no value) [facility] Result panel 571 (unknown) (no date) (unknown) [facility] (no value) [facility] Result panel 572 (unknown) (no date) (unknown) [facility] (no value) [facility] Result panel 573 (unknown) (no date) (unknown) [facility] (no value) [facility] Result panel 574 (unknown) (no date) (unknown) Walk-[facility] (no value) [facility] Result panel 575 (unknown) (no date) (unknown) Walk-In (no value) [facility] Result panel 576 (unknown) (no date) (unknown) [facility] (no value) [facility] Result panel 577 (unknown) (no date) (unknown) [facility] (no value) [facility] Result panel 578 (unknown) (no date) (unknown) Walk-In (no value) [facility] Result panel 579 (unknown) (no date) (unknown) Walk-In (no value) [facility] Result panel 580 (unknown) (no date) (unknown) Walk-[facility] (no value) [facility] Result panel 581 (unknown) (no date) (unknown) [facility]-In (no value) [facility] Result panel 582 (unknown) (no date) (unknown) [facility] (no value) [facility] Result panel 583 (unknown) (no date) (unknown) [facility] (no value) [facility] Result panel 584 (unknown) (no date) (unknown) Walk-In (no value) [facility] Result panel 585 (unknown) (no date) (unknown) [facility] (no value) [facility] Result panel 586 (unknown) (no date) (unknown) [facility] (no value) [facility] Result panel 587 (unknown) (no date) (unknown) [facility] (no value) [facility] Result panel 588 (unknown) (no date) (unknown) [facility] (no value) [facility] Result panel 589 (unknown) (no date) (unknown) Walk-In (no value) [facility] Result panel 590 (unknown) (no date) (unknown) [facility]-In (no value) [facility] Result panel 591 (unknown) (no date) (unknown) [facility] (no value) [facility] Result panel 592 (unknown) (no date) (unknown) Walk-In (no value) [facility] Result panel 593 (unknown) (no date) (unknown) Walk-In (no value) [facility] Result panel 594 (unknown) (no date) (unknown) Walk-In (no value) [facility] Result panel 595 (unknown) (no date) (unknown) Walk-In (no value) [facility] Result panel 596 (unknown) (no date) (unknown) Walk-[facility] (no value) [facility] Result panel 597 (unknown) (no date) (unknown) Walk-[facility] (no value) [facility] Result panel 598 (unknown) (no date) (unknown) [facility] (no value) [facility] Result panel 599 (unknown) (no date) (unknown) [facility] (no value) [facility] Result panel 600 (unknown) (no date) (unknown) [facility] (no value) [facility] Result panel 601 (unknown) (no date) (unknown) [facility] (no value) [facility] Result panel 602 (unknown) (no date) (unknown) [facility] (no value) [facility] Result panel 603 (unknown) (no date) (unknown) [facility] (no value) [facility] Result panel 604 (unknown) (no date) (unknown) [facility] (no value) [facility] Result panel 605 (unknown) (no date) (unknown) [facility] (no value) [facility] Result panel 606 (unknown) (no date) (unknown) [facility] (no value) [facility] Result panel 607 (unknown) (no date) (unknown) [facility] (no value) [facility] Result panel 608 (unknown) (no date) (unknown) [facility] (no value) [facility] Result panel 609 (unknown) (no date) (unknown) [facility] (no value) [facility] Result panel 610 (unknown) (no date) (unknown) [facility] (no value) [facility] Result panel 611 (unknown) (no date) (unknown) [facility] (no value) [facility] Result panel 612 (unknown) (no date) (unknown) [facility] (no value) [facility] Result panel 613 (unknown) (no date) (unknown) [facility] (no value) [facility] Result panel 614 (unknown) (no date) (unknown) [facility]-In (no value) [facility] Result panel 615 (unknown) (no date) (unknown) [facility] (no value) [facility] Result panel 616 (unknown) (no date) (unknown) [facility]-In (no value) [facility] Result panel 617 (unknown) (no date) (unknown) [facility] (no value) [facility] Result panel 618 (unknown) (no date) (unknown) [facility]-In (no value) [facility] Result panel 619 (unknown) (no date) (unknown) Walk-In (no value) [facility] Result panel 620 (unknown) (no date) (unknown) Walk-In (no value) [facility] Result panel 621 (unknown) (no date) (unknown) Walk-In (no value) ([facility] [facility] Result panel 622 (unknown) (no date) (unknown) [facility] value[facility] Result panel 623 (unknown) (no date) (unknown) [facility] (no value[facility] Result panel 624 (unknown) (no date) (unknown) [facility]no value[facility] Result panel 625 (unknown) (no date) (unknown) [facility]no value[facility] Result panel 626 (unknown) (no date) (unknown) [facility]no value[facility] Result panel 627 (unknown) (no date) (unknown) [facility]no value[facility] Result panel 628 (unknown) (no date) (unknown) [facility]no value[facility] Result panel 629 (unknown) (no date) (unknown) [facility]no value[facility] Result panel 630 (unknown) (no date) (unknown) [facility]no value[facility] Result panel 631 (unknown) (no date) (unknown) [facility]no value[facility] Result panel 632 (unknown) (no date) (unknown) [facility]no value[facility] Result panel 633 (unknown) (no date) (unknown) [facility]no value[facility] Result panel 634 (unknown) (no date) (unknown) [facility]no value[facility] Result panel 635 (unknown) (no date) (unknown) [facility]no value[facility] Result panel 636 (unknown) (no date) (unknown) [facility]no value[facility] Result panel 637 (unknown) (no date) (unknown) [facility]no value[facility] Result panel 638 (unknown) (no date) (unknown) [facility]no value[facility] Result panel 639 (unknown) (no date) (unknown) [facility]no value[facility] Result panel 640 (unknown) (no date) (unknown) [facility]no value[facility] Result panel 641 (unknown) (no date) (unknown) [facility]no value[facility] Result panel 642 (unknown) (no date) (unknown) [facility]no value[facility] Result panel 643 (unknown) (no date) (unknown) [facility]no value) [facility] Result panel 644 (unknown) (no date) (unknown) [facility]no value) [facility] Result panel 645 (unknown) (no date) (unknown) [facility]no value) [facility] Result panel 646 (unknown) (no date) (unknown) [facility]no value) [facility] Result panel 647 (unknown) (no date) (unknown) [facility]no value) [facility] Result panel 648 (unknown) (no date) (unknown) [facility]no value) [facility] Result panel 649 (unknown) (no date) (unknown) [facility]no value) [facility] Result panel 650 (unknown) (no date) (unknown) [facility]no value[facility] Result panel 651 (unknown) (no date) (unknown) [facility]no value) [facility] Result panel 652 (unknown) (no date) (unknown) [facility]no value) [facility] Result panel 653 (unknown) (no date) (unknown) [facility] (no value) [facility] Result panel 654 (unknown) (no date) (unknown) [facility] (no value) [facility] Result panel 655 (unknown) (no date) (unknown) [facility]no value) [facility] Result panel 656 (unknown) (no date) (unknown) [facility] (no value) [facility] Result panel 657 (unknown) (no date) (unknown) [facility] (no value) [facility] Result panel 658 (unknown) (no date) (unknown) [facility] (no value) [facility] Result panel 659 (unknown) (no date) (unknown) [facility]no value) [facility] Result panel 660 (unknown) (no date) (unknown) [facility]no value) [facility] Result panel 661 (unknown) (no date) (unknown) [facility] (no value) [facility] Result panel 662 (unknown) (no date) (unknown) [facility] (no value) [facility] Result panel 663 (unknown) (no date) (unknown) [facility] (no value) [facility] Result panel 664 (unknown) (no date) (unknown) [facility] (no value) [facility] Result panel 665 (unknown) (no date) (unknown) [facility] (no value) [facility] Result panel 666 (unknown) (no date) (unknown) [facility]no value) [facility] Result panel 667 (unknown) (no date) (unknown) [facility]no value) [facility] Result panel 668 (unknown) (no date) (unknown) [facility]no value[facility] Result panel 669 (unknown) (no date) (unknown) [facility]no value[facility] Result panel 670 (unknown) (no date) (unknown) [facility]no value) [facility] Result panel 671 (unknown) (no date) (unknown) [facility] (no value) [facility] Result panel 672 (unknown) (no date) (unknown) [facility] (no value) [facility] Result panel 673 (unknown) (no date) (unknown) [facility] (no value) [facility] Result panel 674 (unknown) (no date) (unknown) [facility] (no value) [facility] Result panel 675 (unknown) (no date) (unknown) [facility] (no value) [facility] Result panel 676 (unknown) (no date) (unknown) [facility] (no value) [facility] Result panel 677 (unknown) (no date) (unknown) [facility] (no value) [facility] Result panel 678 (unknown) (no date) (unknown) [facility] (no value) [facility] Result panel 679 (unknown) (no date) (unknown) [facility] (no value) [facility] Result panel 680 (unknown) (no date) (unknown) [facility] (no value) [facility] Result panel 681 (unknown) (no date) (unknown) [facility] (no value) [facility] Result panel 682 (unknown) (no date) (unknown) [facility] (no value) [facility] Result panel 683 (unknown) (no date) (unknown) [facility] (no value) [facility] Result panel 684 (unknown) (no date) (unknown) [facility] (no value) [facility] Result panel 685 (unknown) (no date) (unknown) [facility] (no value) [facility] Result panel 686 (unknown) (no date) (unknown) [facility] (no value) [facility] Result panel 687 (unknown) (no date) (unknown) [facility] (no value) [facility] Result panel 688 (unknown) (no date) (unknown) [facility] (no value) [facility] Result panel 689 (unknown) (no date) (unknown) [facility] (no value) [facility] Result panel 690 (unknown) (no date) (unknown) [facility] (no value) [facility] Result panel 691 (unknown) (no date) (unknown) [facility] (no value) [facility] Result panel 692 (unknown) (no date) (unknown) [facility] (no value) [facility] Result panel 693 (unknown) (no date) (unknown) [facility] (no value) [facility] Result panel 694 (unknown) (no date) (unknown) [facility] (no value) [facility] Result panel 695 (unknown) (no date) (unknown) [facility] (no value) [facility] Result panel 696 (unknown) (no date) (unknown) [facility] (no value) [facility] Result panel 697 (unknown) (no date) (unknown) [facility] (no value) [facility] Result panel 698 (unknown) (no date) (unknown) [facility] (no value) [facility] Result panel 699 (unknown) (no date) (unknown) [facility] (no value) [facility] Result panel 700 (unknown) (no date) (unknown) [facility] (no value) [facility] Result panel 701 (unknown) (no date) (unknown) [facility] (no value) [facility] Result panel 702 (unknown) (no date) (unknown) [facility] (no value) [facility] Result panel 703 (unknown) (no date) (unknown) [facility] (no value) [facility] Result panel 704 (unknown) (no date) (unknown) [facility] (no value) [facility] Result panel 705 (unknown) (no date) (unknown) [facility] (no value) [facility] Result panel 706 (unknown) (no date) (unknown) [facility] (no value) [facility] Result panel 707 (unknown) (no date) (unknown) [facility] (no value) [facility] Result panel 708 (unknown) (no date) (unknown) [facility] (no value) [facility] Result panel 709 (unknown) (no date) (unknown) [facility] (no value) [facility] Result panel 710 (unknown) (no date) (unknown) [facility] (no value) [facility] Result panel 711 (unknown) (no date) (unknown) [facility] (no value) [facility] Result panel 712 (unknown) (no date) (unknown) [facility] (no value) [facility] Result panel 713 (unknown) (no date) (unknown) [facility] (no value) [facility] Result panel 714 (unknown) (no date) (unknown) [facility] (no value) [facility] Result panel 715 (unknown) (no date) (unknown) [facility] (no value) [facility] Result panel 716 (unknown) (no date) (unknown) [facility] (no value) [facility] Result panel 717 (unknown) (no date) (unknown) [facility] (no value) [facility] Result panel 718 (unknown) (no date) (unknown) [facility] (no value) [facility] Result panel 719 (unknown) (no date) (unknown) [facility] (no value) [facility] Result panel 720 (unknown) (no date) (unknown) [facility] (no value) [facility] Result panel 721 (unknown) (no date) (unknown) [facility] (no value) [facility] Result panel 722 (unknown) (no date) (unknown) [facility] (no value) [facility] Result panel 723 (unknown) (no date) (unknown) [facility] (no value) [facility] Result panel 724 (unknown) (no date) (unknown) [facility] (no value) [facility] Result panel 725 (unknown) (no date) (unknown) [facility] (no value) [facility] Result panel 726 (unknown) (no date) (unknown) [facility] (no value) [facility] Result panel 727 (unknown) (no date) (unknown) [facility] (no value) [facility] Result panel 728 (unknown) (no date) (unknown) [facility] (no value) [facility] Result panel 729 (unknown) (no date) (unknown) [facility] (no value) [facility] Result panel 730 (unknown) (no date) (unknown) [facility] (no value) [facility] Result panel 731 (unknown) (no date) (unknown) [facility] (no value) [facility] Result panel 732 (unknown) (no date) (unknown) [facility] (no value) [facility] Result panel 733 (unknown) (no date) (unknown) [facility] (no value) [facility] Result panel 734 (unknown) (no date) (unknown) [facility] (no value) [facility] Result panel 735 (unknown) (no date) (unknown) [facility] (no value) [facility] Result panel 736 (unknown) (no date) (unknown) [facility] (no value) [facility] Result panel 737 (unknown) (no date) (unknown) [facility] (no value) [facility] Result panel 738 (unknown) (no date) (unknown) [facility] (no value) [facility] Result panel 739 (unknown) (no date) (unknown) [facility] (no value) [facility] Result panel 740 (unknown) (no date) (unknown) [facility] (no value) [facility] Result panel 741 (unknown) (no date) (unknown) [facility] (no value) [facility] Result panel 742 (unknown) (no date) (unknown) [facility] (no value) [facility] Result panel 743 (unknown) (no date) (unknown) [facility] (no value) [facility] Result panel 744 (unknown) (no date) (unknown) [facility] (no value) [facility] Result panel 745 (unknown) (no date) (unknown) [facility] (no value) [facility] Result panel 746 (unknown) (no date) (unknown) [facility] (no value) [facility] Result panel 747 (unknown) (no date) (unknown) [facility] (no value) [facility] Result panel 748 (unknown) (no date) (unknown) [facility] (no value) [facility] Result panel 749 (unknown) (no date) (unknown) [facility] (no value) [facility] Result panel 750 (unknown) (no date) (unknown) [facility]no value) [facility] [place] Social History date description facility 2022-03-02 00:00 [facility] smoker [facility] [place] 2022-03-02 00:00 Never smoker [facility] [place] 2022-03-02 00:00 Never smoker Walk[facility]In [facility] [place] 2022-03-02 00:00 Never smoker Walk-In [facility] [place] 2022-03-02 00:00 Never smoker Walk-In Clinic [facility] [place] 2022-03-02 00:00 Never smoker Walk-In [facility] [place] 2022-03-02 00:00 Never smoker Walk-In Clinic [facility] [place] 2022-03-02 00:00 Never smoker Walk-In [facility] [place] Vital Signs date measurement value units 2022-03-02 00:00 BMI 21.20 kg/m2 2022-03-02 00:00 BP_diastolic 61 mmHg 2022-03-02 00:00 BP_systolic 114 mmHg 2022-03-02 00:00 heart_rate 81 /min 2022-03-02 00:00 height_metric 163.83 cm 2022-03-02 00:00 height_standard 64.5 in 2022-03-02 00:00 respiration_rate 15 /min 2022-03-02 00:00 temperature_metric 36.5 C 2022-03-02 00:00 temperature_standard 97.7 F 2022-03-02 00:00 weight_metric 56.7 kg 2022-03-02 00:00 weight_standard 125 lb
[2022-03-11] MEDS ORDERED: SODIUM CHLORIDE 0.9% 1,000 ML IV STA ×2 (12:35)
--- NOTE | 2022-03-11 12:35 | ED Physician Documentation ---
History of Present Illness - Stated complaint Stated Complaint: FEELING ILL/FEMALE - Chief complaint Chief Complaint: General - History obtained from History obtained from: Patient, Family - History of Present Illness Pain level max: 0 Pain level now: 0 - Additonal information Additional information: Patient is an 87-year-old female who presents to the emergency department complaining of feeling weak and dehydrated. She has a history of colon cancer and is supposed to start Keytruda tomorrow. She states that she has been feelin g generally unwell for the past several days. Patient has been on Augmentin and Levaquin for a UTI. She has been on these for the past 5 days. No vomiting. No diarrhea. No constipation. No abdominal pain. No fevers. No chills Review of Systems Constitutional: denies: Fever, Chills Nose: denies: Rhinorrhea / runny nose, Congestion Cardiac: denies: Chest pain / pressure, Palpitations Respiratory: denies: Cough, Wheezing GI: denies: Vomiting, Diarrhea, Hematemesis, Bloody / black stool Skin: denies: Rash Musculoskeletal: denies: Neck pain, Back pain Neurologic: denies: Headache PD PAST MEDICAL HISTORY - Past Medical History Cardiovascular: None Respiratory: Sleep apnea Neuro: None Endocrine/Autoimmune: HyPOthyroidism GI: GERD, GI bleed, Ulcers, Colon polyps, Diverticulitis, Other : Renal insuffiency HEENT: Chronic vision loss, Chronic hearing loss Psych: Depression Musculoskeletal: Osteoarthritis Derm: None - Past Surgical History Past Surgical History: Yes General: Cholecystectomy, Colonoscopy, 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 HEENT: Cataracts, Tonsil/Adenoidectomy Derm: Skin cancer surgery - Present Medications Home Medications: Ambulatory Orders Medication Instructions Recorded Confirmed Levothyroxine Sodium 50 mcg ORAL MOTUWETHFRSA 10/07/17 03/02/22 PARoxetine HCL [Paxil] 20 mg ORAL DAILY 10/07/17 03/02/22 Omeprazole Magnesium 20 mg PO DAILY 04/11/21 03/02/22 Ondansetron Odt [Zofran] 4 mg TL Q6H PRN #10 tablet 03/11/22 - Allergies Allergies/Adverse Reactions: Allergies Allergy/AdvReac Type Severity Reaction Status Date / Time ciprofloxacin [From Cipro] Allergy Unknown Verified 03/11/22 12:06 prochlorperazine edisylate * Allergy Hives Verified 02/14/22 08:22 [From Compazine] prochlorperazine maleate * Allergy Hives Verified 02/14/22 08:22 [From Compazine] Sulfa (Sulfonamide Allergy not known Verified 02/14/22 08:22 Antibiotics) sulfamethoxazole Allergy not known Verified 02/14/22 08:22 [From Septra] trimethoprim [From Septra] Allergy not known Verified 02/14/22 08:22 - Social History Does the pt smoke?: No Smoking Status: Never smoker Does the pt drink ETOH?: Yes Does the pt have substance abuse?: Yes - Immunizations Immunizations are current?: Yes - POLST Patient has POLST: No PD ED PE NORMAL - Vitals Vital signs reviewed: Yes - General General: Alert and oriented X 3, No acute distress - HEENT HEENT: PERRL, Pharynx benign, Other (Dry lips) - Neck Neck: Supple, no meningeal sign - Cardiac Cardiac: RRR, Strong equal pulses - Respiratory Respiratory: No respiratory distress, Clear bilaterally - Abdomen Abdomen: Soft, Non tender, Non distended - Derm Derm: Warm and dry, No rash - Extremities Extremities: No edema - Neuro Neuro: Alert and oriented X 3 - Psych Psych: Normal mood, Normal affect Results - Vitals Vitals: Vital Signs - 24 hr 03/11/22 03/11/22 12:00 14:26 Temperature 36.7 C Heart Rate 92 83 Respiratory 16 12 Rate Blood Pressure 117/56 L 128/81 H O2 Saturation 94 99 Oxygen O2 Source Room air - Labs Labs: Laboratory Tests 03/11/22 03/11/22 12:17 12:17 WBC 11.3 H RBC 4.42 Hgb 12.3 Hct 39.1 MCV 88.5 MCH 27.8 MCHC 31.5 L RDW 13.6 Plt Count 417 MPV 9.0 Neut # (Auto) 9.0 H Lymph # (Auto) 0.9 L [place] # (Auto) 1.0 Eos # (Auto) 0.1 Baso # (Auto) 0.1 Absolute Nucleated RBC 0.00 Nucleated RBC % 0.0 Sodium 135 Potassium 4.2 Chloride 98 L Carbon Dioxide 27 Anion Gap 10.0 BUN 24 H Creatinine 1.0 Estimated GFR (MDRD) 52 L Glucose 111 H Calcium 8.5 Total Bilirubin 0.5 AST 28 ALT 14 Alkaline Phosphatase 78 Total Protein 6.7 Albumin 2.9 L Globulin 3.8 Albumin/Globulin Ratio 0.8 L Lipase 30 PD Medical Decision Making - ED course Complexity details: reviewed results, re-evaluated patient, considered differential, d/w patient, d/w family Reviewed Lab Results: CBC shows a mild leukocytosis, ER abdominal panel shows an elevated BUN to creatinine ratio consistent with dehydration. ED course: Patient feels better after IV fluids. She is eating cheetos and drinking without difficulty. She was given IV Zofran as well. She has been treated for UTI for the past 5 days, we will have her stop the antibiotics. She is afebrile. Well-appearing, nontoxic. No indication of ongoing infection. We will have her follow-up with her oncologist tomorrow. Patient and family counseled regarding signs and symptoms for which I believe and urgent re- evaluation would be necessary. Patient with good understanding of and agreement to plan and is comfortable going home at this time This document was made in part using voice recognition software. While efforts are made to proofread this document, sound alike and grammatical errors may occur. Departure - Departure Disposition: 01 Home, Self Care Clinical Impression: Nausea, Dehydration Condition: Good Instructions: ED Dehydration Follow-Up: Kami Limon ARNP [Primary Care Provider] - Prescriptions: Ondansetron Odt [Zofran] 4 mg TL Q6H PRN #10 tablet PRN Reason: Nausea / Vomiting Comments: Please stop the Augmentin and Levaquin. Make sure you are drinking plenty of fluids. Please follow-up with oncology tomorrow as scheduled. Please return if you worsen. Your prescription was sent to the [facility] in [place]. Discharge Date/Time: 03/11/22 14:51
[2022-03-11] MEDS ORDERED: ONDANSETRON 4 MG/2 ML VIAL IVP STA (12:48)
[2022-03-11 12:54] LABS: ALBUMIN 2.9 g/dL (3.2-5.5); ALBUMIN/GLOBULIN RATIO 0.8 (1.0-2.2); BILIRUBIN,TOTAL 0.5 mg/dL (0.2-1.0); CALCIUM 8.5 mg/dL (8.5-10.3); POTASSIUM 4.2 mmol/L (3.5-5.0); TOTAL PROTEIN 6.7 g/dL (6.7-8.2)
[2022-03-11 14:26] VITALS: BP 128/81
== END 2022-03-11 14:51 | disposition home or self-care (01) ==
LOC: ED 11:47
DX: E86.0 Dehydration (principal); R11.0 Nausea
CPT/HCPCS: 36415; 80053; 83690; 85025; 96361; 96374; 99284